=== PATIENT | female | born 1955 | race Caucasian/White ===

== ENCOUNTER 2016-06-17 19:22 | Emergency (ER) | payer OTHER ==
[~2016-06-17] VITALS: Ht 157.5 cm; Wt 77.1 kg
[~2016-06-17 19:22] MED LIST: BUPR75TA3 PO; DIAZ2TAB; DIPH-440; HYDR-3326; HYDR12.5 PO
--- NOTE | 2016-06-17 19:52 | NUR ---
CARIDAD JOSEPH AT BEDSIDE FOR EVAL.
[2016-06-17] MEDS ORDERED: NIFEdipine (10MG) 10 MG CAPSULE ONE (20:17)
[2016-06-17] MEDS ORDERED: LORAZEPAM 1 MG TABLET ONE (20:17)
[2016-06-17] MEDS ORDERED: HYDROCHLOROTHIAZIDE 25 MG TABLET ONE (20:17)
[2016-06-17 20:24] VITALS: BP 152/105
[2016-06-17] MEDS ORDERED: HYDROCHLOROTHIAZIDE 25 MG TABLET PO ONE (20:30)
[2016-06-17] MEDS ORDERED: NIFEdipine (10MG) 10 MG CAPSULE PO ONE (20:30)
[2016-06-17] MEDS ORDERED: LORAZEPAM 1 MG TABLET PO ONE (20:30)
== END 2016-06-17 20:37 | disposition home or self-care (01) ==
LOC: EDUNIT# 19:22 → ER 19:24
DX: Z76.0 Encounter for issue of repeat prescription (principal); I10 Essential (primary) hypertension; G89.29 Other chronic pain; M54.9 Dorsalgia, unspecified; F32.9 Major depressive disorder, single episode, unspecified; F31.9 Bipolar disorder, unspecified; F17.200 Nicotine dependence, unspecified, uncomplicated; Z88.8 Allergy status to other drugs, medicaments and biological substances
CPT/HCPCS: A4606; Z7610

== ENCOUNTER 2016-09-17 09:43 | Emergency (ER) | payer MEDICAID, OTHER ==
[~2016-09-17] VITALS: Ht 157.5 cm; Wt 77.6 kg
--- NOTE | 2016-09-17 09:46 | NUR ---
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 AWAITING MD ORDER
[2016-09-17] MEDS ORDERED: ACETAMINOPHEN 325 MG TABLET ONE (10:15)
[2016-09-17] MEDS ORDERED: HYDROCHLOROTHIAZIDE 25 MG TABLET ONE (10:15)
[2016-09-17] MEDS ORDERED: NIFEdipine (10MG) 10 MG CAPSULE ONE (10:15)
[2016-09-17] MEDS ORDERED: TETRACAINE HCL/PF 0.5% UD 2 ML BOTTLE ONE (10:23)
--- NOTE | 2016-09-17 10:27 | NUR ---
TETRACAINE ADMINISTERED TO R EYE PER VERBAL ORDER OF DR PARDO, PER PT REQUEST.
[2016-09-17] MEDS ORDERED: ACETAMINOPHEN 325 MG TABLET PO ONE (10:30)
[2016-09-17] MEDS ORDERED: HYDROCHLOROTHIAZIDE 25 MG TABLET PO ONE (10:30)
[2016-09-17] MEDS ORDERED: NIFEdipine (10MG) 10 MG CAPSULE PO ONE (10:30)
--- NOTE | 2016-09-17 10:31 | NUR ---
Patient discharged to home in stable condition. Written and verbal after care instructions given. Patient verbalizes understanding of instruction.
[2016-09-17 10:33] VITALS: BP 164/101
[2016-09-17] MEDS ORDERED: TETRAcaine 5 ML BOTTLE EACHEYE ONE (11:00)
== END 2016-09-17 10:34 | disposition home or self-care (01) ==
LOC: ER 09:45
DX: S05.91XA Unspecified injury of right eye and orbit, initial encounter (principal); H54.8 Legal blindness, as defined in USA; I10 Essential (primary) hypertension; M54.9 Dorsalgia, unspecified; G89.29 Other chronic pain; F31.9 Bipolar disorder, unspecified; F17.200 Nicotine dependence, unspecified, uncomplicated; Z88.8 Allergy status to other drugs, medicaments and biological substances; W26.8XXA Contact with other sharp object(s), not elsewhere classified, initial encounter; Y93.89 Activity, other specified; Y92.89 Other specified places as the place of occurrence of the external cause; Y99.9 Unspecified external cause status
CPT/HCPCS: 99284; A4606; Z7610

== ENCOUNTER 2016-12-26 16:53 | Emergency (ER) | payer MEDICAID, OTHER ==
[~2016-12-26] VITALS: Ht 165.1 cm; Wt 74.8 kg
--- NOTE | 2016-12-26 17:15 | NUR ---
BIB RA FROM STREET C/O FEVER AND WEAKNESS, NAD NOTED, VSS, RESP EVEN AND UNLABORED. WAITING FOR MD MORELOS.
[2016-12-26] MEDS ORDERED: CEFTRIAXONE 1 G VIAL IM ONE (17:30)
[2016-12-26] MEDS ORDERED: LIDOCAINE /MPF 1% VIAL 5 ML VIAL ONE (17:39)
[2016-12-26] MEDS ORDERED: CEFTRIAXONE 1 G VIAL ONE (17:39)
[2016-12-26] MEDS ORDERED: IV NS 0.9% 1,000 ML BAG IV ONE ×2 (18:00→19:00)
[2016-12-26] MEDS ORDERED: ACETAMINOPHEN ES 500 MG TABLET PO ONE (18:00)
[2016-12-26] MEDS ORDERED: ACETAMINOPHEN ES 500 MG TABLET ONE (18:05)
--- NOTE | 2016-12-26 18:05 | NUR ---
RE COLLECTED URINE AND SENT TO LAB
[2016-12-26 18:15] LABS: BASOPHILS % (AUTO) 0.2 % (0.0-2.0); EOSINOPHILS # (AUTO) 0.1 /CMM (0.0-0.7); HEMATOCRIT 42 % (33-45); HEMOGLOBIN 14.4 g/dL (11.5-14.8); LYMPHOCYTES # (AUTO) 0.9 /CMM (0.8-4.8); LYMPHOCYTES % (AUTO) 10.5 % (20.0-44.0); MEAN CORPUSCULAR HEMOGLOBIN 33 PG (26.0-33.0); MEAN CORPUSCULAR HGB CONC 34 g/dl (31.0-36.0); MEAN CORPUSCULAR VOLUME 97 fL (82-100); MONOCYTES # (AUTO) 0.4 /CMM (0.1-1.30); MONOCYTES % (AUTO) 4.7 % (2.0-12.0); NEUTROPHILS # (AUTO) 7.1 /CMM (1.8-8.9); NEUTROPHILS % (AUTO) 83.6 % (43.0-81.0); PLATELET COUNT (AUTO) 175 /CMM (150-450); RDW COEFFICIENT OF VARIATION 11.6 (11.5-15.0); RED BLOOD CELL COUNT(AUTO) 4.34 MIL/uL (4.0-5.2); WHITE BLOOD COUNT (AUTO) 8.5 K/uL (4.3-11.0)
[2016-12-26 18:31] LABS: INR 0.99 (0.87-1.13); PROTHROMBIN TIME 10.3 SECS (9.5-12.7)
[2016-12-26 18:33] LABS: ALANINE AMINOTRANSFERASE 185 U/L (12-78); ALBUMIN 3.8 g/dL (3.4-5.0); ALKALINE PHOSPHATASE 54 U/L (46-116); ASPARTATE AMINOTRANSFERASE 211 U/L (15-37); BILIRUBIN,DIRECT 0.5 mg/dL (0.0-0.2); BILIRUBIN,TOTAL 0.9 mg/dL (0.2-1.0); CALCIUM, SERUM 9.3 mg/dL (8.5-10.1); CARBON DIOXIDE 25 mmol/L (21-32); CHLORIDE 98 mmol/L (98-107); CREATININE 0.7 mg/dL (0.6-1.3); GLUCOSE 108 mg/dL (74-106); SODIUM SERUM 138 mmol/L (136-145); TOTAL PROTEIN, SERUM 8.2 g/dL (6.4-8.2); UREA NITROGEN, BLOOD 8 mg/dL (7-18)
[2016-12-26 18:35] LABS: TROPONIN I < 0.017 ng/mL (0.00-0.056)
[2016-12-26] MEDS ORDERED: POTASSIUM CHLORIDE 20 MEQ TAB.PRT.SR PO ONE ×2 (19:00→19:12)
[2016-12-26] MEDS ORDERED: PIPERACILLIN /TAZOBACTAM 3.375 G in IV D5W 50 ML IV ONE (19:00)
[2016-12-26] MEDS ORDERED: NIFE30TA89 PO (19:07)
[2016-12-26] MEDS ORDERED: HYDR25TA4 PO (19:07)
[2016-12-26 19:08] LABS: APPEARANCE,URINE Clear (CLEAR); BILIRUBIN,URINE Negative (NEGATIVE); BLOOD, URINE Small Ery/uL (NEGATIVE); COLOR,URINE Yellow (YELLOW); KETONES,URINE Negative (NEGATIVE); LEUKOCYTE ESTERASE ,URINE Moderate (NEGATIVE); NITRITE, URINE Negative (NEGATIVE); PROTEIN,URINE 30 mg/dl (NEGATIVE); UGLUCOSE Negative (NEGATIVE); UROBILINOGEN,URINE 0.2 EU/dL (0.2)
[2016-12-26] MEDS ORDERED: PIPERACILLIN /TAZOBACTAM 3.375 G VIAL IV ONE (19:13)
[2016-12-26 19:23] LABS: BACTERIA,URINE Moderate /HPF (None Seen); RBC,URINE 0-2 /HPF (0-2); SQUAMOUS EPITHELIAL CELL,UR Many /HPF (None Seen); WBC,URINE 21-50 /HPF (0-3)
--- NOTE | 2016-12-26 19:44 | NUR ---
SPOKE WITH MILENA WITH [employer] AND SHE IS WORKING ON ARRANGING PATIENT TRANSFER.
[2016-12-26] MEDS ORDERED: HYDROCODONE/APAP 5/325MG 1 EACH TABLET ONE (20:25)
[2016-12-26] MEDS ORDERED: HYDROCODONE/APAP 5/325MG 1 EACH TABLET PO ONE (20:30)
--- NOTE | 2016-12-26 20:38 | NUR ---
FAX FACE, LABS, AND CLINICAL INFO TO [facility] AT [facility] FAX: ATTN [facility]
--- NOTE | 2016-12-26 22:02 | NUR ---
SPOKEWITH ZIGGY PATTERN VAULT CLERK FOR [facility]. CONFIRMED THAT DR. JARA SPOKE WITH DR. MIR AT 21:00. INFORMED ZIGGY RECEIVED FAX RECEIPT CONFIRMATION AT 21:15 THAT HE RECEIVED THE REQUIRED CLINICAL INFORMATION TO OBTAIN A BED. WAS INFORMED BY ZIGGY THAT HE ONLY GAVE THE CLINICAL DATA TO THE TARIFF CLERK 10 MINUTES AGO.
--- NOTE | 2016-12-26 22:52 | NUR ---
Patient is resting comfortably in bed with eyes closed. Easily aroused. VSS
--- NOTE | 2016-12-26 23:09 | NUR ---
PT ACCEPTED AT [facility] RM 2260. NUMBER FOR REPORT [id number]. TRANSPORT WILL BE [facility] AUTH#[id number].
--- NOTE | 2016-12-26 23:18 | NUR ---
CALLED PABLO MUÑOZ [facility]) TO SET UP BLS TRANSPORT TO [facility]. ETA 2AM-2:30AM. TRIP#[phone]
[2016-12-26 23:32] VITALS: BP 145/78
--- NOTE | 2016-12-26 23:32 | NUR ---
report given to bri anderson
== END 2016-12-27 00:20 | disposition short-term general hospital (02) ==
LOC: ER 16:55
DX: N39.0 Urinary tract infection, site not specified (principal); L03.114 Cellulitis of left upper limb; E87.6 Hypokalemia; R94.5 Abnormal results of liver function studies; R65.10 Systemic inflammatory response syndrome (SIRS) of non-infectious origin without acute organ dysfunction; I10 Essential (primary) hypertension; G89.29 Other chronic pain; F32.9 Major depressive disorder, single episode, unspecified; Z88.6 Allergy status to analgesic agent; Z88.8 Allergy status to other drugs, medicaments and biological substances; F17.200 Nicotine dependence, unspecified, uncomplicated
CPT/HCPCS: 36415; 71010; 80048; 80076; 81001; 83605 ×2; 83690; 84484; 85025; 85730; 87040 ×2; 87077; 87081; 87086; 87186; 93005; 96361; 96365; 96372; 99285; A4606; J0696; J2543 ×2; J3490; J7030 ×2; J7040; J7060; Z7610; 81000-TC

== ENCOUNTER 2017-03-22 02:12 | Emergency (ER) | payer MEDICAID, OTHER ==
[~2017-03-22] VITALS: Ht 154.9 cm; Wt 70.3 kg
[~2017-03-22 02:12] MED LIST changes: -BUPR75TA3 PO; -DIAZ2TAB; -DIPH-440; -HYDR-3326; -HYDR12.5 PO; +HYDR25TA4 PO; +NIFE30TA89 PO
--- NOTE | 2017-03-22 02:35 | NUR ---
PT ASSIGNED ROOM; LEFT ROOM AND WENT TO LOBBY SCREAMING
--- NOTE | 2017-03-22 02:45 | NUR ---
CALLED FROM LOBBY. STATES "WAIT"
--- NOTE | 2017-03-22 03:00 | NUR ---
CALLED AGAIN FOR ROOM ASSIGNMENT; STATES "AM GOING TO SMOKE"
--- NOTE | 2017-03-22 05:00 | NUR ---
PT IS IN BED #9 C/O HEADACHE. PT IS ALSO REQUESTING A REFILL ON HER BP MEDICATION. PT WAS SEEN BY DR. MIR. PT IS ON THE MONITOR AND CONTINUOUS PULSE OX.
[2017-03-22] MEDS ORDERED: ACETAMINOPHEN 325 MG TABLET ONE (05:07)
[2017-03-22] MEDS: ACETAMINOPHEN 325 MG TABLET PO ONE (05:10)
--- NOTE | 2017-03-22 05:15 | NUR ---
CALLING RADIOLOGY RE: CXR.
[2017-03-22] MEDS ORDERED: HYDROCHLOROTHIAZIDE 25 MG TABLET ONE (05:32)
[2017-03-22] MEDS: HYDROCHLOROTHIAZIDE 25 MG TABLET PO ONE (05:38)
--- NOTE | 2017-03-22 05:42 | NUR ---
PT REC'D MEDCATION ORDERED. Patient discharged to home in stable condition. Written and verbal after care instructions given. Patient verbalizes understanding of instruction AND RX. PT AMBULATED OUT WITH A STEADY GAIT. VSS.
[2017-03-22 05:43] VITALS: BP 155/102
== END 2017-03-22 05:43 | disposition home or self-care (01) ==
LOC: ER 02:16
DX: Z76.0 Encounter for issue of repeat prescription (principal); I10 Essential (primary) hypertension; R05 Cough; G89.29 Other chronic pain; F32.9 Major depressive disorder, single episode, unspecified; F17.200 Nicotine dependence, unspecified, uncomplicated; Z88.6 Allergy status to analgesic agent; Z88.8 Allergy status to other drugs, medicaments and biological substances
CPT/HCPCS: 71045; 99283; A4606; Z7610

== ENCOUNTER 2018-03-17 17:36 | Emergency (ER) | payer OTHER ==
[~2018-03-17] VITALS: Ht 154.9 cm; Wt 72.1 kg
--- NOTE | 2018-03-17 17:45 | NUR ---
BIBRA 878 C/O LOWER ABDOMINAL PAIN X 3-4 MONTHS, +NAUSEA -VOMITING. PAIN IS SHARP AND INTERMITTENT. PT IS HOMELESS, AOX4, AMBULATORY, VSS, RR EVEN AND UNLABORED. DENIES SOB, DIZZINESS, WEAKNESS. STATES SHE HAS BLOOD IN HER STOOL. SKIN WARM, DRY, INTACT. SEEN BY DR HERNANDEZ.
[2018-03-17 18:24] LABS: BASOPHILS % (AUTO) 0.3 % (0.0-2.0); EOSINOPHILS % (AUTO) 0.2 % (0.0-6.0); HEMATOCRIT 43 % (33-45); HEMOGLOBIN 14.3 g/dL (11.5-14.8); LYMPHOCYTES # (AUTO) 1.2 /CMM (0.8-4.8); LYMPHOCYTES % (AUTO) 18.9 % (20.0-44.0); MEAN CORPUSCULAR HGB CONC 34 g/dl (31.0-36.0); MEAN CORPUSCULAR VOLUME 95 fL (82-100); MONOCYTES # (AUTO) 0.4 /CMM (0.1-1.30); MONOCYTES % (AUTO) 5.4 % (2.0-12.0); NEUTROPHILS % (AUTO) 75.2 % (43.0-81.0); PLATELET COUNT (AUTO) 174 /CMM (150-450); WHITE BLOOD COUNT (AUTO) 6.6 K/uL (4.3-11.0)
[2018-03-17] MEDS ORDERED: IV NS 0.9% 1,000 ML BAG IV ONE ×2 (18:30→19:30)
[2018-03-17 18:35] LABS: APPEARANCE,URINE Slightly Cloudy (CLEAR); BILIRUBIN,URINE LARGE (NEGATIVE); BLOOD, URINE Moderate Ery/uL (NEGATIVE); COLOR,URINE Amber (YELLOW); KETONES,URINE 15 (NEGATIVE); LEUKOCYTE ESTERASE ,URINE Negative (NEGATIVE); NITRITE, URINE Positive (NEGATIVE); PH,URINE 5.5 (5.0-8.0); PROTEIN,URINE >=300 mg/dl (NEGATIVE); UGLUCOSE Negative (NEGATIVE)
[2018-03-17 18:35] LABS: CALCIUM, SERUM 8.9 mg/dL (8.5-10.1); CREATININE 1.1 mg/dL (0.6-1.3); POTASSIUM 4.1 mmol/L (3.5-5.1)
[2018-03-17 18:41] LABS: ALBUMIN 4.1 g/dL (3.4-5.0); BILIRUBIN,DIRECT 1.4 mg/dL (0.0-0.2); BILIRUBIN,TOTAL 3.2 mg/dL (0.2-1.0); TOTAL PROTEIN, SERUM 8.4 g/dL (6.4-8.2)
--- NOTE | 2018-03-17 18:54 | NUR ---
PT TAKEN TO CT VIA RMANOJ.
[2018-03-17] MEDS ORDERED: CT SWABBABLE VALVE TRANS SET 1 EA INFUS.SET MC ONE (18:55)
[2018-03-17] MEDS ORDERED: IOHEXOL-300 100 ML VIAL IV ONE (18:55)
[2018-03-17] MEDS ORDERED: IV NS 0.9% 250 ML IV ONE (18:56)
[2018-03-17 18:59] LABS: BACTERIA,URINE 2+ /HPF (None Seen)
[2018-03-17 19:02] LABS: RBC,URINE 21-50 /HPF (0-2)
[2018-03-17] MEDS ORDERED: PIPERACILLIN /TAZOBACTAM 3.375 G VIAL IV ONE (19:24)
--- NOTE | 2018-03-17 19:27 | NUR ---
PT CONTINUES TO COMPLAIN OF PAIN. NOTIFIED.
[2018-03-17] MEDS ORDERED: PIPERACILLIN /TAZOBACTAM 3.375 G in IV D5W 50 ML IV ONE (19:30)
[2018-03-17] MEDS ORDERED: HYDROMORPHONE INJ 2 MG/ML DISP.SYRIN ONE (19:42)
[2018-03-17] MEDS ORDERED: HYDROMORPHONE 1 MG/1 ML DISP.SYRIN IV ONE (20:00)
--- NOTE | 2018-03-17 21:11 | NUR ---
Patient is resting comfortably in bed with eyes closed. Easily aroused. VSS
--- NOTE | 2018-03-17 21:40 | NUR ---
CALLED [facility] FOR LACTIC RE-DRAW. STATED IT WAS TIMED AND THEY WILL COME WHEN SYSTEM NOTIFIES THEM.
--- NOTE | 2018-03-17 21:56 | NUR ---
LACTIC ACID DRAWN AND SENT TO LAB
--- NOTE | 2018-03-17 23:47 | NUR ---
Patient is resting comfortably in bed with eyes closed. Easily aroused. VSS
--- NOTE | 2018-03-17 23:58 | NUR ---
REPORT REC'D FROM ANASTACIO NEVAREZ FOR COURT[facility].
[2018-03-18] MEDS ORDERED: HYDROMORPHONE INJ 2 MG/ML DISP.SYRIN ONE (00:15)
[2018-03-18] MEDS ORDERED: HYDROMORPHONE INJ 0.5 MG/0.5 ML SYRINGE IV ONE (00:30)
--- NOTE | 2018-03-18 00:49 | NUR ---
PT AMBULATED TO THE BATHROOM WITH A STEADY GAIT. PT RETURNED TO ER BED 13 AND WAS CONNECTED TO THE MONITOR AND CONTINUOUS PULSE OX.
--- NOTE | 2018-03-18 00:49 | NUR ---
PT WAS PLACED ON 2L O2 VIA NC.
[2018-03-18] MEDS ORDERED: PIPERACILLIN /TAZOBACTAM 3.375 G VIAL IV ONE (00:56)
--- NOTE | 2018-03-18 01:11 | NUR ---
PT APPEARS TO BE RESTING COMFORTABLY WITH NO S/S OF PAIN OR DISTRESS.
[2018-03-18] MEDS ORDERED: PIPERACILLIN /TAZOBACTAM 3.375 G in IV D5W 50 ML IV ONE (01:30)
--- NOTE | 2018-03-18 01:30 | NUR ---
PT REC'D ANTIBIOTIC ORDERED. PT ALSO REC'D A FEW ICE CHIPS PER DR. GERBER. PT IS TOLERATING ICE CHIPS WELL.
--- NOTE | 2018-03-18 02:38 | NUR ---
CALL BACK FROM ANGIE REDEVELOPMENT SPECIALIST FOR [facility] WITH TRANSFER INFO. MS ROOM NUMBER [id number]; REPORT NUMBER [id number]; AUTH # [id number]; ETA 40MINUTES; REF NUMBER [id number]
--- NOTE | 2018-03-18 03:00 | NUR ---
CALLED [facility] TO GIVE REPORT. NUMBER IS NOT AN ACTIVE NUMBER.
--- NOTE | 2018-03-18 03:15 | NUR ---
REPORT GIVEN TO ANASTACIO ZIMMERMAN AT [facility].
[2018-03-18] MEDS ORDERED: hydrALAZINE HCL IV 20 MG VIAL ONE (03:38)
--- NOTE | 2018-03-18 03:39 | NUR ---
DR GERBER NOTIFIED RE: PT'S ELEVATED BP. NEW ORDERS GIVEN AND CARRIED OUT.
[2018-03-18 03:40] VITALS: BP 173/123
--- NOTE | 2018-03-18 03:40 | NUR ---
REPORT GIVEN TO TERE EMT.
[2018-03-18] MEDS ORDERED: hydrALAZINE HCL IV 20 MG VIAL IV ONE (04:00)
--- NOTE | 2018-03-18 04:02 | NUR ---
BP IS NOW 159/109. PT IS NOW BEING TRANSPORTED TO [facility]
== END 2018-03-18 04:06 ==
LOC: ER 17:37
DX: A41.9 Sepsis, unspecified organism (principal); R65.20 Severe sepsis without septic shock; N39.0 Urinary tract infection, site not specified; K81.9 Cholecystitis, unspecified; R74.0 Nonspecific elevation of levels of transaminase and lactic acid dehydrogenase [LDH]; E86.0 Dehydration; I10 Essential (primary) hypertension; G89.29 Other chronic pain; M54.9 Dorsalgia, unspecified; F31.9 Bipolar disorder, unspecified; H54.8 Legal blindness, as defined in USA; F10.10 Alcohol abuse, uncomplicated; F17.200 Nicotine dependence, unspecified, uncomplicated; Y90.9 Presence of alcohol in blood, level not specified; Z98.890 Other specified postprocedural states; Z88.6 Allergy status to analgesic agent; Z88.8 Allergy status to other drugs, medicaments and biological substances
CPT/HCPCS: 36415; 71045; 74177; 76705; 80048; 80076; 81001; 83605 ×2; 83690; 85025; 85730; 87040 ×2; 87086; 96361; 96365; 96366; 96375; 96376; 99291; A4606; J0360; J1170 ×2; J2543 ×2; J7030 ×2; J7050 ×2; Q9967; Z7610; 81000-TC; J7060

== ENCOUNTER 2018-09-08 06:27 | Emergency (ER) | payer OTHER ==
[~2018-09-08] VITALS: Ht 154.9 cm; Wt 69.9 kg
--- NOTE | 2018-09-08 06:30 | NUR ---
PT IN BED, C/O OF PAIN 8-12/21. PT A&OX3-4. WILL CONT TO MONITOR.
--- NOTE | 2018-09-08 06:40 | NUR ---
IV 20G IN R WRIST S/L. BLOOD DRAWN AND GIVEN TO WOOD ROUTER HAND.
--- NOTE | 2018-09-08 06:45 | NUR ---
PT ASSISTED TO PUT ON HOSPITAL GOWN.
--- NOTE | 2018-09-08 06:50 | NUR ---
URINE SAMPLE COLLECTED AND PLACED AT SAT LAB.
[2018-09-08 06:51] LABS: BASOPHILS % (AUTO) 0.3 % (0.0-2.0); EOSINOPHILS % (AUTO) 2.1 % (0.0-6.0); HEMATOCRIT 39 % (33-45); HEMOGLOBIN 13.1 g/dL (11.5-14.8); LYMPHOCYTES # (AUTO) 1.7 /CMM (0.8-4.8); LYMPHOCYTES % (AUTO) 36.5 % (20.0-44.0); MEAN CORPUSCULAR HGB CONC 34 g/dl (31.0-36.0); MEAN CORPUSCULAR VOLUME 91 fL (82-100); MONOCYTES # (AUTO) 0.3 /CMM (0.1-1.30); MONOCYTES % (AUTO) 7.3 % (2.0-12.0); NEUTROPHILS # (AUTO) 2.5 /CMM (1.8-8.9); NEUTROPHILS % (AUTO) 53.8 % (43.0-81.0); PLATELET COUNT (AUTO) 153 /CMM (150-450); RED BLOOD CELL COUNT(AUTO) 4.24 MIL/uL (4.0-5.2); WHITE BLOOD COUNT (AUTO) 4.6 K/uL (4.3-11.0)
[2018-09-08] MEDS ORDERED: ONDANSETRON HCL/PF - ER 4 MG/2 ML VIAL IV ONE (07:00)
[2018-09-08] MEDS ORDERED: MORPHINE SULFATE INJ 2 MG/ML DISP.SYRIN IV ONE (07:00)
[2018-09-08] MEDS ORDERED: MORPHINE SULFATE INJ 4 MG/ML DISP.SYRIN ONE (07:07)
--- NOTE | 2018-09-08 07:08 | NUR ---
4MG MORPHINE GIVEN ORDERED FOR PAIN 12/21.
[2018-09-08 07:10] LABS: ALBUMIN 3.7 g/dL (3.4-5.0); BILIRUBIN,DIRECT 0.6 mg/dL (0.0-0.2); BILIRUBIN,TOTAL 1.2 mg/dL (0.2-1.0); CALCIUM, SERUM 8.8 mg/dL (8.5-10.1); POTASSIUM 3.7 mmol/L (3.5-5.1)
[2018-09-08 07:21] LABS: BILIRUBIN,URINE Negative (NEGATIVE); BLOOD, URINE Negative Ery/uL (NEGATIVE); COLOR,URINE Yellow (YELLOW); KETONES,URINE Negative (NEGATIVE); LEUKOCYTE ESTERASE ,URINE Small (NEGATIVE); NITRITE, URINE Negative (NEGATIVE); PROTEIN,URINE 100 mg/dl (NEGATIVE); UGLUCOSE Negative (NEGATIVE); UROBILINOGEN,URINE 0.2 EU/dL (0.2)
[2018-09-08 07:22] LABS: APPEARANCE,URINE Slightly Hazy (CLEAR)
[2018-09-08 07:30] LABS: BACTERIA,URINE Rare /HPF (None Seen); RBC,URINE 0-3 /HPF (0-2); SQUAMOUS EPITHELIAL CELL,UR Moderate /HPF (None Seen)
--- NOTE | 2018-09-08 07:32 | NUR ---
B/P OF 174/118 AND 158/[address] MANN
--- NOTE | 2018-09-08 07:34 | NUR ---
REPORT GIVEN TO PALMIRA CHAVES FOR COURTNEY.
--- NOTE | 2018-09-08 07:35 | NUR ---
REPORT RECEIVED FROM WOODROW CHAVES FOR COURTNEY
[2018-09-08] MEDS ORDERED: ONDANSETRON HCL/PF 4 MG/2 ML VIAL ONE (07:37)
[2018-09-08] MEDS ORDERED: CT SWABBABLE VALVE TRANS SET 1 EA INFUS.SET MC ONE (08:17)
[2018-09-08] MEDS ORDERED: IOHEXOL-300 100 ML VIAL IV ONE (08:17)
[2018-09-08] MEDS ORDERED: IV NS 0.9% 250 ML IV ONE (08:18)
--- NOTE | 2018-09-08 08:38 | NUR ---
WHEELED OUT VIA RNEY FOR CT SCAN
--- NOTE | 2018-09-08 11:05 | NUR ---
PROVIDED W MEAL TRAY, PT TOLERATING PO WELL
--- NOTE | 2018-09-08 11:43 | NUR ---
FIRE EXTINGUISHER INSTALLER KEYSHA FRAGOSO AT BEDSIDE
--- NOTE | 2018-09-08 11:45 | NUR ---
BP OF 162/111, MADE AWARE, PROVIDED PT WITH PRESCRITION FOR BP
--- NOTE | 2018-09-08 11:49 | NUR ---
PT SIGNED HOMELESS DISCHARGE WAIVER
--- NOTE | 2018-09-08 12:04 | NUR ---
IV removed. Catheter intact and site benign. Pressure and 4x4 applied to site. No bleeding noted.
--- NOTE | 2018-09-08 12:06 | NUR ---
Patient given written and verbal discharge instructions. Patient verbalizes understanding of instructions. Patient is ambulatory with steady gait. Ref[place] offer of [place] [facility] [place]. Patient given list of available shelters in surrounding area. Per patient, she is awaiting for an available female bed from [facility] in [place], Pt spoke to family caseworker Idris. Nameband removed, pt in appropriate clothes. All belongings given to patient. Tap card provided.
[2018-09-08 12:11] VITALS: BP 162/111
--- NOTE | 2018-09-08 12:12 | NUR ---
Social service consult requested by ER charge nurse Bashir for homelessness. Pt is a 63 years old female who was admitted to [facility] for abdominal pain. SW met with pt. bedside. Pts belongings were at bedside. Pt. is alert and oriented x4. Pt was cooperative with SW during the entire assessment. Pt. is ambulatory. Pt. states she has been homeless on and off for 16 years. SW inquired with pt. if she has worked with any caseworkers in the community. Pt. stated, Yes I am working with my case hardener at [employer]. I am in the Housing for Health program. I am next in line for a bed and will be staying there with my boyfriend for a while until we get a place of our own. Pt. states she is staying where Michelle Simeon and the [facility] [employer] meet. Pt. receives $980 a month from social security benefits. Pt. denies drug use but states that she drinks about half a pint of liquor several days a week. Pt. also smokes about half a pack of cigarettes a day. Pt. states that she received mental health and substance use support from [facility] from [phone] but is no longer wanting to attend. SW offered substance use program referrals and emergency nursing home referrals but pt. declined. SW encouraged pt to go to a treatment program and left the following referrals with pt. in case her motivation changes in the future: [facility] [address] [place], [place] [id number] [phone]. [facility] [address] [place] [phone] , and [facility] [address] [facility] [facility] [address] . Pt. denies suicidal and homicidal ideation at this time. Pt. will sign homeless waiver at discharge and placed in chart. Pt. will require a TAP card upon discharge as well. No other services needed at this time. SW is available if needed.
--- NOTE | 2018-09-08 13:00 | NUR ---
ASSISTED PT TO [facility] TO CLAIM PRESCRIPTION.
== END 2018-09-08 13:04 | disposition home or self-care (01) ==
LOC: ER 06:28
DX: N39.0 Urinary tract infection, site not specified (principal); K74.60 Unspecified cirrhosis of liver; R18.8 Other ascites; K57.30 Diverticulosis of large intestine without perforation or abscess without bleeding; I10 Essential (primary) hypertension; F32.9 Major depressive disorder, single episode, unspecified; F17.200 Nicotine dependence, unspecified, uncomplicated; Z98.890 Other specified postprocedural states; Z88.8 Allergy status to other drugs, medicaments and biological substances; Z88.6 Allergy status to analgesic agent; Z79.899 Other long term (current) drug therapy
CPT/HCPCS: 36415; 74177; 80048; 80076; 81001; 83690; 85025; 87086; 93005; 96374; 96375; 99284; J2270; J2405; J7050; Q9967; 81000-TC

== ENCOUNTER 2018-09-27 17:31 | Inpatient (IN) | payer OTHER ==
[~2018-09-27] VITALS: Ht 154.9 cm; Wt 66.2 kg
--- NOTE | 2018-09-27 17:48 | NUR ---
ACUTE DYSPNEA; CALLED 911 NO ACUTE DISTRESSL LUNGS ARE CLEAR
--- NOTE | 2018-09-27 18:14 | NUR ---
ASSUME PT CARE. RESTING IN BED. PER REPORT, PT CALLED 911 C/O SOB, GENERALIZED WEAKNESS X 1 WEEK. PT ALSO C/O R KNEE PAIN S/P GLF COUPLE DAYS AGO. 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 STABLE VITALS AWAITING MD MORELOS.
--- NOTE | 2018-09-27 18:16 | NUR ---
DR GERBER AT BEDSIDE FOR EVAL.
[2018-09-27 18:31] LABS: BASOPHILS % (AUTO) 0.3 % (0.0-2.0); EOSINOPHILS % (AUTO) 1.7 % (0.0-6.0); HEMATOCRIT 41 % (33-45); HEMOGLOBIN 13.5 g/dL (11.5-14.8); LYMPHOCYTES # (AUTO) 1.1 /CMM (0.8-4.8); LYMPHOCYTES % (AUTO) 25.2 % (20.0-44.0); MEAN CORPUSCULAR HGB CONC 33 g/dl (31.0-36.0); MEAN CORPUSCULAR VOLUME 91 fL (82-100); MONOCYTES # (AUTO) 0.3 /CMM (0.1-1.30); MONOCYTES % (AUTO) 6.9 % (2.0-12.0); NEUTROPHILS % (AUTO) 65.9 % (43.0-81.0); PLATELET COUNT (AUTO) 148 /CMM (150-450); RED BLOOD CELL COUNT(AUTO) 4.54 MIL/uL (4.0-5.2); WHITE BLOOD COUNT (AUTO) 4.5 K/uL (4.3-11.0)
[2018-09-27 18:39] LABS: CALCIUM, SERUM 8.7 mg/dL (8.5-10.1); CREATININE 0.9 mg/dL (0.6-1.3); POTASSIUM 3.9 mmol/L (3.5-5.1)
[2018-09-27 18:52] LABS: ALBUMIN 3.7 g/dL (3.4-5.0); BILIRUBIN,DIRECT 0.5 mg/dL (0.0-0.2); BILIRUBIN,TOTAL 1.1 mg/dL (0.2-1.0); TOTAL PROTEIN, SERUM 8.1 g/dL (6.4-8.2)
[2018-09-27 19:01] LABS: APPEARANCE,URINE Clear (CLEAR); BILIRUBIN,URINE SMALL (NEGATIVE); BLOOD, URINE Negative Ery/uL (NEGATIVE); COLOR,URINE Yellow (YELLOW); KETONES,URINE Negative (NEGATIVE); LEUKOCYTE ESTERASE ,URINE Negative (NEGATIVE); NITRITE, URINE Negative (NEGATIVE); PH,URINE 6.5 (5.0-8.0); PROTEIN,URINE 100 mg/dl (NEGATIVE); UGLUCOSE Negative (NEGATIVE)
[2018-09-27 19:15] LABS: BACTERIA,URINE Moderate /HPF (None Seen); MUCUS,URINE Few /LPF (None Seen); RBC,URINE 0-2 /HPF (0-2); SQUAMOUS EPITHELIAL CELL,UR Many /HPF (None Seen); URINE AMORPHOUS URATE Few /HPF (None Seen)
--- NOTE | 2018-09-27 19:30 | NUR ---
PT RECEIVED IN BED AAOX4. NAD NOTED.
[2018-09-27] MEDS ORDERED: FUROSEMIDE 40 MG/4 ML VIAL ONE (20:15)
[2018-09-27] MEDS ORDERED: FUROSEMIDE 40 MG/4 ML VIAL IV ONE (20:30)
--- NOTE | 2018-09-27 20:52 | NUR ---
CALLED NURSING SUP REQUESTED TELE BED
[2018-09-27] MEDS ORDERED: HYDROCODONE/APAP 5/325MG 1 EACH TABLET PO ONE (21:00)
[2018-09-27] MEDS ORDERED: HYDROCODONE/APAP 5/325MG 1 EACH TABLET ONE (21:07)
--- NOTE | 2018-09-27 21:09 | NUR ---
BED ASSIGNMENT: 306-2 TELE
--- NOTE | 2018-09-27 21:19 | NUR ---
CALLED TO UNIT FOR REPORT, NO ANSWER
[2018-09-27] MEDS ORDERED: CLONIDINE HCL 0.1 MG TABLET PO PRN (21:30)
[2018-09-27] MEDS ORDERED: ONDANSETRON HCL/PF 4 MG/2 ML VIAL IVP PRN (21:30)
[2018-09-27] MEDS ORDERED: MAG HYDROX/AL HYDROX/SIMETH 30 ML UDC PO PRN (21:30)
[2018-09-27] MEDS ORDERED: ZOLPIDEM TARTRATE 5 MG TABLET PO PRN (21:30)
[2018-09-27] MEDS ORDERED: Z GUARD REMEDY 2 OZ OINT TP PRN (21:30)
[2018-09-27] MEDS ORDERED: ACETAMINOPHEN 325 MG TABLET PO PRN (21:30)
[2018-09-27] MEDS ORDERED: MAGNESIUM HYDROXIDE 30 ML UDC PO PRN (21:30)
--- NOTE | 2018-09-27 21:31 | NUR ---
REPORT GIVEN TO ANASTACIO DWYER FOR COURTNEY. PT GOING TO 306-2
--- NOTE | 2018-09-27 21:55 | NUR ---
pt transported to unit with rn and emt at bedside w acls protocol. nad noted during transport. pt ambulated from gurney to bed.
[2018-09-27 22:00] VITALS: BP 157/106
[2018-09-27] MEDS: NITROGLYCERIN PACKET 1 GM PACKET TOP SCH (22:30)
[2018-09-27] MEDS: ENOXAPARIN SODIUM 40 MG/0.4 ML DISP.SYRIN SQ SCH (22:30)
[2018-09-27] MEDS: METOPROLOL TARTRATE 25 MG TABLET PO SCH (22:30)
[2018-09-28] MEDS: HYDROCODONE/APAP 5/325MG 1 EACH TABLET PO PRN ×4 (02:10→21:54)
[2018-09-28 04:00] VITALS: BP 149/95
[2018-09-28] MEDS: NITROGLYCERIN PACKET 1 GM PACKET TOP SCH ×2 (05:00→05:07)
--- NOTE | 2018-09-28 05:36 | NUR ---
CLOSING NOTES: ASLEEP AT THIS TIME. AROUSES EASILY AND ALERT. MEDICATED X2 FOR PAIN AND EFFECTIVE. AMBULATES TO THE BATHROOM WITH NURSE STANDBY, STEADY ON HER LEGS. SPEECH CLEAR COOPERATIVE. O2 SATS 96 -100 % RA, BUT THE PATIENT REQUISTED 02 STATING "IT MADE HER FEEL BETTER" TO HAVE IT ON, NO SOB NOTHED THIS 10 HOURS. NO EDEMA SEEN AM WT 148 LBS BEDSCALE
[2018-09-28 05:42] VITALS: BP 149/95
[2018-09-28 06:21] LABS: BASOPHILS % (AUTO) 0.3 % (0.0-2.0); HEMATOCRIT 39 % (33-45); HEMOGLOBIN 12.8 g/dL (11.5-14.8); LYMPHOCYTES # (AUTO) 1.4 /CMM (0.8-4.8); LYMPHOCYTES % (AUTO) 34.6 % (20.0-44.0); MEAN CORPUSCULAR HGB CONC 33 g/dl (31.0-36.0); MEAN CORPUSCULAR VOLUME 90 fL (82-100); MONOCYTES # (AUTO) 0.3 /CMM (0.1-1.30); MONOCYTES % (AUTO) 7.2 % (2.0-12.0); NEUTROPHILS # (AUTO) 2.2 /CMM (1.8-8.9); NEUTROPHILS % (AUTO) 54.9 % (43.0-81.0); PLATELET COUNT (AUTO) 144 /CMM (150-450); RED BLOOD CELL COUNT(AUTO) 4.29 MIL/uL (4.0-5.2)
[2018-09-28 06:59] LABS: CALCIUM, SERUM 8.6 mg/dL (8.5-10.1); CREATININE 0.9 mg/dL (0.6-1.3); MAGNESIUM 1.5 mg/dL (1.8-2.4); PHOSPHORUS 4.1 mg/dL (2.5-4.9); POTASSIUM 3.6 mmol/L (3.5-5.1)
--- NOTE | 2018-09-28 07:20 | NUR ---
Tele/RN - Assessment Patient in bed awake, A/O X 4, states breathing improved, no apparent distress seen, stable on room air, tele shows SR with BBB. Saline lock on the LAC is patent, intact, flushing well. Labs reviewed, noted with magnesium level 1.5, will relay to Dr. Hall. Fall precautions maintained. Patient updated on plan of care and in agreement. Will continue with current medical management.
[2018-09-28 08:00] VITALS: BP 145/98
[2018-09-28] MEDS: METOPROLOL TARTRATE 25 MG TABLET PO SCH ×3 (08:05→17:03)
[2018-09-28] MEDS: NIFEdipine XL (30MG) 30 MG TAB PO SCH (08:05)
[2018-09-28] MEDS: Magnesium 1GM/D5W 100ML PREMIX 100 ML IV SCH ×2 (08:45→09:45)
[2018-09-28] MEDS ORDERED: HYDROCHLOROTHIAZIDE 25 MG TABLET PO SCH (09:00)
[2018-09-28] MEDS ORDERED: FUROSEMIDE 40 MG/4 ML VIAL IV SCH (09:00)
[2018-09-28] MEDS: VALSARTAN 80 MG TABLET PO SCH (09:24)
[2018-09-28] MEDS: NEUTRA PHOS 1 POWD.PACKET PO SCH ×2 (09:25→17:04)
--- NOTE | 2018-09-28 11:37 | NUR ---
Social service consult requested by Dr. Velasquez for homelessness. Pt. is a 63 year old female who was admitted to [facility] for abdominal pain. SW met with pt. bedside. Pt. is alert and oriented x 3. Pt. appears disheveled. Pt. has a prosthetic left eye. Pt. stated, " I just need a bus pass when I leave, I need to sleep." SW informed pt. she needs to ask her a few quick questions. Pt. was receptive. Pt. states she is homeless and lives under the [place]. Pt. stated, she is linked with [facility] and her line repairer is Idris. NAMAN offered pt. correction placement and resources, however pt. declined stating, " No, I don't need anything but a bus pass to go back to [place]." NAMAN updated case coordinator Sera regarding pt's discharge plan. Homeless Patient Waiver Form to be signed by the pt. upon discharge.
--- NOTE | 2018-09-28 15:47 | NUR ---
Patient reports she is homeless and lives under the [facility] overpass. States she is linked with [facility] and her contact lens blocker is Idris. She was seen by vp digital marketing social media and crm and was offered halfway and resources but refused. Patient states she does not want anything. She is requesting bus pass to go back to [facility] location. Addendum: 09/28/18 at 1548 by ALANIS PURI RN Amended: Links added.
[2018-09-28 16:00] VITALS: BP 113/57
--- NOTE | 2018-09-28 19:20 | NUR ---
MS/RN - End of shift summary Patient feeling better, denies SOB, not in any form of distress, stable on room air, on Lasix IV diuresing well. Magnesium and phos replaced. All needs attended. Endorsed to night RN for continuity of care.
--- NOTE | 2018-09-28 19:30 | NUR ---
MS/RN RECEIVE PATIENT AWAKE, ALERT, ORIENTED, COMFORTABLE, NO C/O PAIN, NO DISTRESS NOTED, CALL LIGHT IN REACH. WILL MONITOR.
[2018-09-28 20:00] VITALS: BP 113/73
[2018-09-28] MEDS: ENOXAPARIN SODIUM 40 MG/0.4 ML DISP.SYRIN SQ SCH (21:48)
--- NOTE | 2018-09-28 22:56 | NUR ---
MS/RN PATIENT IS SLEEPING AT THIS TIME, AROUSABLE, APPEAR COMFORTABLE, NO DISTRESS NOTED, CALL LIGHT IN REACH. WILL CONTINUE TO MONITOR
[2018-09-29] MEDS: HYDROCODONE/APAP 5/325MG 1 EACH TABLET PO PRN ×4 (02:07→19:53)
--- NOTE | 2018-09-29 06:23 | NUR ---
MS/RN PATIENT IS SLEEPING, APPEAR COMFORTABLE, NO DISTRESS NOTED, ALL NEEDS ATTENDED AT THIS TIME, WILL CONTINUE TO MONITOR.
[2018-09-29 06:24] LABS: CALCIUM, SERUM 8.7 mg/dL (8.5-10.1); POTASSIUM 3.6 mmol/L (3.5-5.1)
[2018-09-29 06:25] LABS: MAGNESIUM 1.6 mg/dL (1.8-2.4)
[2018-09-29 06:35] LABS: BASOPHILS % (AUTO) 0.4 % (0.0-2.0); EOSINOPHILS % (AUTO) 3.1 % (0.0-6.0); HEMATOCRIT 43 % (33-45); HEMOGLOBIN 14.3 g/dL (11.5-14.8); LYMPHOCYTES # (AUTO) 1.5 /CMM (0.8-4.8); LYMPHOCYTES % (AUTO) 33.2 % (20.0-44.0); MEAN CORPUSCULAR HGB CONC 33 g/dl (31.0-36.0); MEAN CORPUSCULAR VOLUME 90 fL (82-100); MONOCYTES # (AUTO) 0.3 /CMM (0.1-1.30); MONOCYTES % (AUTO) 7.2 % (2.0-12.0); NEUTROPHILS # (AUTO) 2.6 /CMM (1.8-8.9); NEUTROPHILS % (AUTO) 56.1 % (43.0-81.0); PLATELET COUNT (AUTO) 153 /CMM (150-450); RED BLOOD CELL COUNT(AUTO) 4.77 MIL/uL (4.0-5.2); WHITE BLOOD COUNT (AUTO) 4.7 K/uL (4.3-11.0)
--- NOTE | 2018-09-29 07:25 | NUR ---
MS RN OPENING NOTES RECEIVED PT IN BED, ASLEEP, EASILY AROUSED, A/O X4. PT TOLERATING RA, WITH NO ACUTE RESPIRATORY DISTRESS NOTED. PT DENIES ANY PAIN OR DISCOMFORT. PIV TO RAC G20, FLUSHED WITH NS, INTACT AND OPERATIONAL. PT DENIES ANY QUESTIONS OR CONCERNS AT THIS TIME. PT KEPT COMFORTABLE. PT'S BED IN LOWEST, LOCKED POSITION WITH SR X2. CALL LIGHT KEPT WITHIN REACH. WILL CONTINUE PLAN OF CARE.
[2018-09-29 08:00] VITALS: BP 123/79
--- NOTE | 2018-09-29 08:40 | NUR ---
MS RN NOTES PT SEEN AND EVALUATED [place] /NISH. PT MADE AWARE OF PLAN OF CARE. PT ALSO AGREED TO GO TO CUST[facility]IAL IF MD CAN WRITE A LETTER FOR PLAN OF DISCHARGE. MD AGREED AND WILL COORDINATE WITH CM/SW TOLD TO THE PT.
[2018-09-29] MEDS: Magnesium 1GM/D5W 100ML PREMIX 100 ML IV SCH ×2 (08:43→09:47)
[2018-09-29] MEDS: FUROSEMIDE 40 MG TABLET PO SCH (08:44)
[2018-09-29] MEDS: VALSARTAN 80 MG TABLET PO SCH (08:44)
[2018-09-29] MEDS: METOPROLOL TARTRATE 25 MG TABLET PO SCH ×2 (08:44→16:11)
[2018-09-29] MEDS: NIFEdipine XL (30MG) 30 MG TAB PO SCH (08:45)
--- NOTE | 2018-09-29 10:52 | NUR ---
NAMAN met with the pt. bedside to discuss discharge plan. Pt. wants fdc placement as it is recommended by Dr. Hall. SW offered pt. fdc placement, however pt. does not want to go to [facility] for fdc placement. Pt. wants to stay in [facility] because pt. is receiving services from [employer] and is in their Housing for health program. NAMAN contacted pt's tower equipment installer Idris and left him a voicemail message requesting a call back. NAMAN discussed case with housing case manager Hernán as well regarding pt. needing fdc placement, however pt. is declining [facility] fdc placement. Per Dr. Hall, pt. should not go back to the streets due to her medical condition.
[2018-09-29 16:00] VITALS: BP 127/73
--- NOTE | 2018-09-29 18:35 | NUR ---
MS RN CLOSING NOTES PT IN BED, AWAKE, A/O X4. PT TOLERATING RA, WITH NO ACUTE RESPIRATORY DISTRESS NOTED. PT DENIES ANY PAIN OR DISCOMFORT. PIV TO RAC G18, FLUSHED WITH NS, INTACT AND OPERATIONAL. ALL NEEEDS AND CARE ATTENDED. PT KEPT COMFORTABLE. PT'S BED IN LOWEST, LOCKED POSITION WITH SR X2. CALL LIGHT KEPT WITHIN REACH. WILL ENDORSE TO INCOMING NIGHT NURSE FOR COURTNEY.
--- NOTE | 2018-09-29 20:09 | NUR ---
MS/RN RECEIVED PATIENT AWAKE, ALERT, ORIENTED, WITH C/O PAIN 9/10 CHEST AREA, MEDICATED WITH NORCO 5 MG PO ORDERED, WILL MONITOR.
[2018-09-29 20:27] VITALS: BP 119/70
[2018-09-29] MEDS: ENOXAPARIN SODIUM 40 MG/0.4 ML DISP.SYRIN SQ SCH (22:21)
--- NOTE | 2018-09-30 01:03 | NUR ---
MS/TELE/RN PATIENT IS SLEEPING AT THIS TIME, APPEAR COMFORTABLE, NO DISTRESS NOTED, CALL LIGHT IN REACH. WILL CONTINUE TO MONITOR.
[2018-09-30] MEDS: HYDROCODONE/APAP 5/325MG 1 EACH TABLET PO PRN ×3 (01:39→12:51)
--- NOTE | 2018-09-30 06:16 | NUR ---
MS/TELE/RN PATIENT IS STILL SLEEPING AT THIS TIME, APPEAR COMFORTABLE, NO SIGNS OF DISTRESS NOTED CALL LIGHT IN REACH, ALL NEEDS ATTENDED AT THIS TIME, WILL CONTINUE TO MONITOR.
[2018-09-30 06:50] LABS: BASOPHILS % (AUTO) 0.5 % (0.0-2.0); EOSINOPHILS % (AUTO) 3.5 % (0.0-6.0); HEMATOCRIT 43 % (33-45); HEMOGLOBIN 14.5 g/dL (11.5-14.8); LYMPHOCYTES # (AUTO) 1.5 /CMM (0.8-4.8); LYMPHOCYTES % (AUTO) 37.6 % (20.0-44.0); MEAN CORPUSCULAR HGB CONC 34 g/dl (31.0-36.0); MEAN CORPUSCULAR VOLUME 89 fL (82-100); MONOCYTES # (AUTO) 0.3 /CMM (0.1-1.30); MONOCYTES % (AUTO) 8.1 % (2.0-12.0); NEUTROPHILS % (AUTO) 50.3 % (43.0-81.0); PLATELET COUNT (AUTO) 169 /CMM (150-450); RED BLOOD CELL COUNT(AUTO) 4.83 MIL/uL (4.0-5.2); WHITE BLOOD COUNT (AUTO) 4.1 K/uL (4.3-11.0)
[2018-09-30 06:58] LABS: CALCIUM, SERUM 8.8 mg/dL (8.5-10.1); MAGNESIUM 1.7 mg/dL (1.8-2.4); POTASSIUM 3.8 mmol/L (3.5-5.1)
[2018-09-30] MEDS ORDERED: VALS80TA2 PO (07:34)
[2018-09-30] MEDS ORDERED: METO25TA20 PO (07:34)
[2018-09-30] MEDS ORDERED: FURO40TA5 PO (07:34)
--- NOTE | 2018-09-30 07:40 | NUR ---
MS RN NOTES SEEN AND EVALUATED BY DR GALLAGHER. PLAN TO DISCHARGE TO [facility] TO F/U WITH CM TODAY. PRESCRIPTIONS FOR HOME MEDS GIVEN BY MD. PT AWARE. WILL CONTINUE TO MONITOR PT.
[2018-09-30 08:06] VITALS: BP 143/101
[2018-09-30] MEDS: FUROSEMIDE 40 MG TABLET PO SCH (08:08)
[2018-09-30] MEDS: Magnesium 1GM/D5W 100ML PREMIX 100 ML IV SCH ×2 (08:12→09:24)
[2018-09-30] MEDS: METOPROLOL TARTRATE 25 MG TABLET PO SCH (08:15)
[2018-09-30] MEDS: VALSARTAN 80 MG TABLET PO SCH (08:15)
[2018-09-30 08:16] VITALS: BP 143/101
[2018-09-30] MEDS: NIFEdipine XL (30MG) 30 MG TAB PO SCH (08:16)
--- NOTE | 2018-09-30 13:35 | NUR ---
MS INFORMATION SYSTEMS COORDINATOR NOTES PT TO BE DISCHARGE TO RECOMM[facility]ED [facility] [place]. PT REFUSED AND PREFERS TO GO BACK TO [place] SHE [place]. PT A/O X4 AMBULATORY. PT STATED IN PAIN BEFORE LEAVING THE UNIT AT 1330. NORCO PRN REQUESTED GIVEN AT 1251. PT IN HURRY TO LEAVE. RN EXPLAINED PROTOCOL REGARDING TAKING NARCOTICS BEFORE BEING DISCHARGE. PT PREFERS TO GO RIGHT AWAY. DISCHARGE INSTRUCTIONS AND INVENTORY LIST, SIGNED BY PT HERSELF. PT REQUESTED FOR TAP CARD, NSG WELL LOGGING MUD ANALYSIS CAPTAIN PROVIDED IT. MIGUEL/MIGUEL AWARE OF SITUATION. PT ALSO PROVIDED SOME CLOTHES. PRESCRIPTIONS GIVEN TO PT. PT SIGNED HOMELESS WAIVER FORM. ALL NEEDS AND CARE PROVIDED. PIV TO RAC REMOVED, APPLIED DRY DRESSING. PT STATED HER SKIN IS INTACT AND REFUSED TO HAVE PICTURES TAKEN. PT LEFT THE UNIT AT 1330, ESCORTED BY LAURO/EDDIE. PT LEFT THE UNIT WITH NO ACUTE RESPIRATORY DISTRESS. DENIES PAIN OR DISCOMFORT. NELLY AWARE OF DISCHARGE.
== END 2018-09-30 13:25 | disposition home or self-care (01) | DRG 194 ==
LOC: ER 17:39 → TELE 21:37 → MED 09-28 10:04
PROVIDERS: ADMIT Internal Medicine; ATTEND Family Medicine
DX: I11.0 Hypertensive heart disease with heart failure (principal); J96.91 Respiratory failure, unspecified with hypoxia; I50.23 Acute on chronic systolic (congestive) heart failure; F41.9 Anxiety disorder, unspecified; G89.29 Other chronic pain; E83.42 Hypomagnesemia; F17.210 Nicotine dependence, cigarettes, uncomplicated; Z59.0 Homelessness; J44.9 Chronic obstructive pulmonary disease, unspecified; F32.9 Major depressive disorder, single episode, unspecified; I10 Essential (primary) hypertension; Z97.0 Presence of artificial eye
CPT/HCPCS: 36415; 71045-TC; 80048-TC; 80076-TC; 80305; 81000-TC; 83735-TC; 83880; 84100-TC; 84484-TC; 85025-TC; 87081-TC; 87086-TC; 93307-TC; G0378; G0480; J1650; J1940; J3475

== ENCOUNTER 2019-03-18 08:33 | Emergency (ER) | payer OTHER ==
[~2019-03-18] VITALS: Ht 157.5 cm; Wt 68.0 kg
[~2019-03-18 08:33] MED LIST changes: +FURO40TA5 PO; -HYDR25TA4 PO; +METO25TA20 PO; +NIFE-35 PO; -NIFE30TA89 PO; +VALS80TA2 PO
--- NOTE | 2019-03-18 08:47 | NUR ---
Darren martinez alert c/c abdomianl pain and nauses non vomiting @ this time MD aware and bedside patient to monitor ,lab ,gown ,keep aptient comfortable
[2019-03-18] MEDS ORDERED: FAMOTIDINE/PF INJ 20 MG/2 ML VIAL IV ONE ×2 (08:58→09:00)
[2019-03-18] MEDS ORDERED: ONDANSETRON HCL/PF 4 MG/2 ML VIAL ONE (08:59)
[2019-03-18 09:00] LABS: BASOPHILS % (AUTO) 0.4 % (0.0-2.0); EOSINOPHILS % (AUTO) 0.1 % (0.0-6.0); HEMATOCRIT 39 % (33-45); HEMOGLOBIN 12.8 g/dL (11.5-14.8); LYMPHOCYTES # (AUTO) 0.5 /CMM (0.8-4.8); LYMPHOCYTES % (AUTO) 12.5 % (20.0-44.0); MEAN CORPUSCULAR HGB CONC 33 g/dl (31.0-36.0); MEAN CORPUSCULAR VOLUME 93 fL (82-100); MONOCYTES # (AUTO) 0.1 /CMM (0.1-1.30); MONOCYTES % (AUTO) 2.3 % (2.0-12.0); NEUTROPHILS # (AUTO) 3.4 /CMM (1.8-8.9); NEUTROPHILS % (AUTO) 84.7 % (43.0-81.0); PLATELET COUNT (AUTO) 128 /CMM (150-450); RED BLOOD CELL COUNT(AUTO) 4.19 MIL/uL (4.0-5.2)
[2019-03-18] MEDS ORDERED: ONDANSETRON HCL/PF 4 MG/2 ML VIAL IV ONE (09:00)
[2019-03-18 09:04] LABS: CALCIUM, SERUM 8.7 mg/dL (8.5-10.1); CREATININE 0.9 mg/dL (0.6-1.3); POTASSIUM 4.1 mmol/L (3.5-5.1)
[2019-03-18] MEDS ORDERED: IV NS 0.9% 250 ML IV ONE (09:14)
[2019-03-18] MEDS ORDERED: CT SWABBABLE VALVE TRANS SET 1 EA INFUS.SET MC ONE (09:14)
[2019-03-18] MEDS ORDERED: IOHEXOL-300 100 ML VIAL IV ONE (09:14)
[2019-03-18 09:19] LABS: ALBUMIN 4.3 g/dL (3.4-5.0); BILIRUBIN,DIRECT 0.7 mg/dL (0.0-0.2); BILIRUBIN,TOTAL 1.3 mg/dL (0.2-1.0); TOTAL PROTEIN, SERUM 8.5 g/dL (6.4-8.2)
[2019-03-18 09:25] LABS: APPEARANCE,URINE Clear (CLEAR); BILIRUBIN,URINE Negative (NEGATIVE); BLOOD, URINE Small Ery/uL (NEGATIVE); COLOR,URINE Yellow (YELLOW); KETONES,URINE 15 (NEGATIVE); LEUKOCYTE ESTERASE ,URINE Negative (NEGATIVE); NITRITE, URINE Negative (NEGATIVE); PH,URINE 7.5 (5.0-8.0); PROTEIN,URINE 30 mg/dl (NEGATIVE); UGLUCOSE Negative (NEGATIVE); UROBILINOGEN,URINE 0.2 EU/dL (0.2)
[2019-03-18 09:35] LABS: BACTERIA,URINE Rare /HPF (None Seen); SQUAMOUS EPITHELIAL CELL,UR Few /HPF (None Seen); WBC,URINE NONE SEEN /HPF (0-3)
--- NOTE | 2019-03-18 09:39 | NUR ---
Patient awake alert noted able to ambulated to and bathroom urine obtined and send to lab
--- NOTE | 2019-03-18 10:41 | NUR ---
Patient asleep but arousable
--- NOTE | 2019-03-18 11:18 | NUR ---
Artur awake alert ambulatory declined Fpc refused to sign patient agrees to follw up PMD in 1 day patient belonging back an given
[2019-03-18 11:20] VITALS: BP 167/98
--- NOTE | 2019-03-18 11:20 | NUR ---
Patient going back to previous living arrangement
--- NOTE | 2019-03-18 11:44 | NUR ---
Patient LAC removed noted no edema ,no pain cath intact
== END 2019-03-18 11:44 | disposition home or self-care (01) ==
LOC: ER 08:34
DX: R10.13 Epigastric pain (principal); R11.0 Nausea; I10 Essential (primary) hypertension; F10.10 Alcohol abuse, uncomplicated; F17.200 Nicotine dependence, unspecified, uncomplicated; M54.9 Dorsalgia, unspecified; G89.29 Other chronic pain; Y90.9 Presence of alcohol in blood, level not specified; Z59.0 Homelessness; Z98.890 Other specified postprocedural states; Z88.6 Allergy status to analgesic agent; Z88.8 Allergy status to other drugs, medicaments and biological substances
CPT/HCPCS: 36415; 74177; 80048; 80076; 81001; 83690; 85025; 87086; 96374; 96375; 99284; J2405; J3490; J7030; J7050; Q9967; 81000-TC

== ENCOUNTER 2021-04-23 05:09 | Emergency (ER) | payer OTHER ==
[~2021-04-23] VITALS: Ht 157.5 cm; Wt 88.5 kg
--- NOTE | 2021-04-23 05:37 | NUR ---
PATIENT BIBRA 39 FROM HOME C/O GEN ABD PAIN X3 DAYS. +NAUSEA. PATIENT IS A/O X 4, RR EVEN AND UNLABORED, NO SOB NOTED. PATIENT CONNECTED TO MONITOR.
--- NOTE | 2021-04-23 05:38 | NUR ---
URINE SENT TO LAB
[2021-04-23 05:40] LABS: BASOPHILS % (AUTO) 0.4 % (0.0-2.0); EOSINOPHILS % (AUTO) 1.4 % (0.0-6.0); HEMATOCRIT 38 % (33-45); HEMOGLOBIN 12.5 g/dL (11.5-14.8); LYMPHOCYTES # (AUTO) 2.4 K/uL (0.8-4.8); LYMPHOCYTES % (AUTO) 30.4 % (20.0-44.0); MEAN CORPUSCULAR HGB CONC 33 g/dl (31.0-36.0); MEAN CORPUSCULAR VOLUME 89 fL (82-100); MONOCYTES # (AUTO) 0.5 K/uL (0.1-1.30); MONOCYTES % (AUTO) 6.3 % (2.0-12.0); NEUTROPHILS # (AUTO) 4.8 K/uL (1.8-8.9); NEUTROPHILS % (AUTO) 61.5 % (43.0-81.0); PLATELET COUNT (AUTO) 242 K/uL (150-450); RED BLOOD CELL COUNT(AUTO) 4.24 MIL/uL (4.0-5.2); WHITE BLOOD COUNT (AUTO) 7.7 K/uL (4.3-11.0)
[2021-04-23 05:43] LABS: BILIRUBIN,URINE NEGATIVE (NEGATIVE); COLOR,URINE YELLOW (YELLOW); LEUKOCYTE ESTERASE ,URINE TRACE (NEGATIVE); NITRITE, URINE NEGATIVE (NEGATIVE); PH,URINE 5.5 (5.0-8.0); PROTEIN,URINE 100 mg/dl (NEGATIVE); UGLUCOSE NEGATIVE (NEGATIVE)
[2021-04-23 05:56] LABS: ALBUMIN 3.4 g/dL (3.4-5.0); BILIRUBIN,DIRECT 0.4 mg/dL (0.0-0.2); BILIRUBIN,TOTAL 0.8 mg/dL (0.2-1.0); CALCIUM, SERUM 8.4 mg/dL (8.5-10.1); CREATININE 1.1 mg/dL (0.6-1.3); POTASSIUM 4.9 mmol/L (3.5-5.1); TOTAL PROTEIN, SERUM 7.8 g/dL (6.4-8.2)
[2021-04-23 05:59] LABS: WBC,URINE 21-50 /HPF (0-3)
[2021-04-23 06:00] LABS: BACTERIA,URINE Many /HPF (None Seen); SQUAMOUS EPITHELIAL CELL,UR Moderate /HPF (None Seen)
[2021-04-23] MEDS ORDERED: PANTOPRAZOLE 40 MG VIAL ONE (06:18)
[2021-04-23] MEDS ORDERED: ONDANSETRON HCL/PF 4 MG/2 ML VIAL ONE (06:18)
[2021-04-23] MEDS ORDERED: KETOROLAC TROMETHAMINE INJ 30 MG/ML VIAL ONE (06:18)
[2021-04-23] MEDS ORDERED: CEFTRIAXONE 1GM BAG (ER ONLY) 1 GM/50 ML PIGGYBACK IV ONE (06:30)
[2021-04-23] MEDS ORDERED: IV NS 0.9% 1,000 ML BAG IV ONE (06:30)
[2021-04-23] MEDS ORDERED: ONDANSETRON HCL/PF 4 MG/2 ML VIAL IVP ONE (06:30)
[2021-04-23] MEDS ORDERED: PANTOPRAZOLE 40 MG VIAL IV ONE (06:30)
[2021-04-23] MEDS ORDERED: KETOROLAC TROMETHAMINE INJ 30 MG/ML VIAL IV ONE (06:30)
--- NOTE | 2021-04-23 06:59 | NUR ---
L WRIST #22G S/L; PATENT AND INTACT.
--- NOTE | 2021-04-23 07:00 | NUR ---
PT TAKEN TO CT VIA ZARA
[2021-04-23] MEDS ORDERED: CEFTRIAXONE 1GM BAG (ER ONLY) 50 ML IV ONE (07:11)
--- NOTE | 2021-04-23 07:30 | NUR ---
ASSESSED PT ON BED ASLEEP EASILY AROUSABLE, NOT IN RESPIRATORY DISTRESS, V/S STABLE, KEPT RESTED AND COMFORTABLE. WILL CONTINUE TO MONITOR.
[2021-04-23] MEDS ORDERED: OLANZAPINE 10 MG VIAL IM ONE ×2 (08:00→08:31)
[2021-04-23] MEDS ORDERED: PANT40TA2 PO (10:05)
[2021-04-23] MEDS ORDERED: CEPH500C2 PO (10:05)
--- NOTE | 2021-04-23 11:10 | NUR ---
CALLED MIGUEL ÁNGEL FOR PT DISCHARGED.
--- NOTE | 2021-04-23 11:31 | NUR ---
Patient discharged to home in stable condition. Written and verbal after care instructions given. Patient verbalizes understanding of instruction.
[2021-04-23 11:32] VITALS: BP 132/83
--- NOTE | 2021-04-23 11:32 | NUR ---
IV removed. Catheter intact and site benign. Pressure and 4x4 applied to site. No bleeding noted.
== END 2021-04-23 11:33 | disposition home or self-care (01) ==
LOC: ER 05:15
DX: R10.13 Epigastric pain (principal); F19.229 Other psychoactive substance dependence with intoxication, unspecified; N39.0 Urinary tract infection, site not specified; K02.9 Dental caries, unspecified; I10 Essential (primary) hypertension; I49.9 Cardiac arrhythmia, unspecified; G89.29 Other chronic pain; M54.9 Dorsalgia, unspecified; F32.9 Major depressive disorder, single episode, unspecified; H54.8 Legal blindness, as defined in USA; F17.200 Nicotine dependence, unspecified, uncomplicated; Z44 Encounter for fitting and adjustment of external prosthetic device; Z79.84 Long term (current) use of oral hypoglycemic drugs; Z79.811 Long term (current) use of aromatase inhibitors; Z79.899 Other long term (current) drug therapy
CPT/HCPCS: 36415; 71045; 74176; 80048; 80076; 80307; 80320; 81001; 83690; 85025; 85730; 87086; 96365; 96372; 96375; 99285; J0696; J2405; J3490; J7030; C9113; G0480; J1885

== ENCOUNTER 2021-04-28 02:30 | Inpatient (IN) | payer OTHER ==
[~2021-04-28] VITALS: Ht 157.5 cm; Wt 86.6 kg
[~2021-04-28 02:30] MED LIST changes: +CEPH500C2 PO; +PANT40TA2 PO
[2021-04-28] MEDS ORDERED: FUROSEMIDE 40 MG/4 ML VIAL ONE ×2 (02:37→06:58)
[2021-04-28] MEDS ORDERED: NTG 50 MG/D5W250 ML BOTTL 250 ML IV ONE ×2 (02:37→03:00)
[2021-04-28] MEDS ORDERED: FUROSEMIDE 40 MG/4 ML VIAL IV ONE (03:00)
[2021-04-28 03:09] LABS: BASOPHILS % (AUTO) 0.2 % (0.0-2.0); EOSINOPHILS % (AUTO) 0.9 % (0.0-6.0); HEMATOCRIT 38 % (33-45); HEMOGLOBIN 11.8 g/dL (11.5-14.8); LYMPHOCYTES # (AUTO) 2.2 K/uL (0.8-4.8); LYMPHOCYTES % (AUTO) 23.9 % (20.0-44.0); MEAN CORPUSCULAR HGB CONC 32 g/dl (31.0-36.0); MEAN CORPUSCULAR VOLUME 91 fL (82-100); MONOCYTES # (AUTO) 0.5 K/uL (0.1-1.30); MONOCYTES % (AUTO) 5.6 % (2.0-12.0); NEUTROPHILS # (AUTO) 6.4 K/uL (1.8-8.9); NEUTROPHILS % (AUTO) 69.4 % (43.0-81.0); PLATELET COUNT (AUTO) 237 K/uL (150-450); RED BLOOD CELL COUNT(AUTO) 4.12 MIL/uL (4.0-5.2); WHITE BLOOD COUNT (AUTO) 9.3 K/uL (4.3-11.0)
[2021-04-28 03:11] LABS: CALCIUM, SERUM 8.6 mg/dL (8.5-10.1); CREATININE 1.7 mg/dL (0.6-1.3); POTASSIUM 4.8 mmol/L (3.5-5.1)
[2021-04-28 03:24] LABS: ALBUMIN 3.9 g/dL (3.4-5.0); BILIRUBIN,DIRECT 0.9 mg/dL (0.0-0.2); BILIRUBIN,TOTAL 1.8 mg/dL (0.2-1.0); TOTAL PROTEIN, SERUM 8.5 g/dL (6.4-8.2)
[2021-04-28] MEDS ORDERED: ENOXAPARIN SODIUM 80 MG/0.8 ML DISP.SYRIN SQ ONE ×2 (04:00→04:12)
[2021-04-28] MEDS ORDERED: ENALAPRILAT DIHYD. (2.5MG/2ML) 1.25 MG/ML VIAL IV ONE (04:00)
[2021-04-28] MEDS ORDERED: ENALAPRILAT INJ (1.25 MG/ML) 1.25 MG/ML VIAL IV ONE (04:12)
[2021-04-28 04:52] LABS: ABG PH 7.381 (7.350-7.450); ABG PO2 130.2 mmHg (75.0-100.0); COHb 0.3 % (0.5-1.5); MetHb 0.2 % (0.0-1.5); O2Hb 97.6 % (94.0-97.0); SITE, ABG Right Radial; VENT MODE, BG S/T 16 15/5 30%
[2021-04-28] MEDS ORDERED: MAG HYDROX/AL HYDROX/SIMETH 30 ML UDC PO PRN (05:00)
[2021-04-28] MEDS ORDERED: ACETAMINOPHEN 325 MG TABLET PO PRN (05:00)
[2021-04-28] MEDS ORDERED: LEVALBUTEROL HCL NEB 1.25 MG/0.5 ML VIAL.NEB NEB PRN (05:00)
[2021-04-28] MEDS ORDERED: LABETALOL 20 MG/4 ML VIAL IV PRN (05:00)
[2021-04-28] MEDS ORDERED: MAGNESIUM HYDROXIDE 30 ML UDC PO PRN (05:00)
[2021-04-28] MEDS ORDERED: METOPROLOL TARTRATE 50 MG TABLET ONE (05:24)
[2021-04-28] MEDS: METOPROLOL TARTRATE 25 MG TABLET PO SCH ×2 (05:30→17:37)
[2021-04-28] MEDS: IPRATROPIUM/ALBUTEROL INHALER IH SCH ×2 (06:00→12:00)
[2021-04-28] MEDS ORDERED: PANTOPRAZOLE 40 MG TABLET.DR PO ONE (06:58)
[2021-04-28] MEDS: FUROSEMIDE 40 MG/4 ML VIAL IV SCH ×3 (07:03→17:37)
[2021-04-28] MEDS: PANTOPRAZOLE 40 MG TABLET.DR PO SCH (07:03)
[2021-04-28] MEDS ORDERED: NIFEdipine XL (30MG) 30 MG TAB PO SCH (09:00)
[2021-04-28] MEDS: HEPARIN SODIUM, PORCINE 5000 UNITS/1 ML VIAL SQ SCH ×2 (10:00→21:28)
[2021-04-28] MEDS: VALSARTAN 80 MG TABLET PO SCH (10:00)
[2021-04-28] MEDS ORDERED: VALSARTAN 80 MG TABLET ONE (10:11)
[2021-04-28] MEDS ORDERED: HEPARIN SODIUM, PORCINE 5000 UNITS/1 ML VIAL ONE (10:11)
[2021-04-28] MEDS ORDERED: NIFEdipine (10MG) 10 MG CAPSULE PO ONE (10:11)
[2021-04-28 20:23] VITALS: BP 113/58
[2021-04-29 00:07] LABS: BILIRUBIN,URINE NEGATIVE (NEGATIVE); COLOR,URINE YELLOW (YELLOW); LEUKOCYTE ESTERASE ,URINE NEGATIVE (NEGATIVE); NITRITE, URINE NEGATIVE (NEGATIVE); PROTEIN,URINE NEGATIVE (NEGATIVE); UGLUCOSE NEGATIVE (NEGATIVE); UROBILINOGEN,URINE 0.2 EU/dL (0.2)
[2021-04-29 00:17] VITALS: BP 110/66
[2021-04-29] MEDS: BACLOFEN (10 MG) 10 MG TABLET PO PRN ×2 (00:48→20:53)
[2021-04-29] MEDS: MORPHINE SULFATE INJ 2 MG/ML DISP.SYRIN IV PRN ×3 (01:26→17:52)
[2021-04-29 04:26] VITALS: BP 95/64
[2021-04-29 07:03] LABS: BASOPHILS % (AUTO) 0.2 % (0.0-2.0); HEMATOCRIT 37 % (33-45); HEMOGLOBIN 12.1 g/dL (11.5-14.8); LYMPHOCYTES # (AUTO) 1.2 K/uL (0.8-4.8); LYMPHOCYTES % (AUTO) 20.1 % (20.0-44.0); MEAN CORPUSCULAR HGB CONC 33 g/dl (31.0-36.0); MEAN CORPUSCULAR VOLUME 87 fL (82-100); MONOCYTES # (AUTO) 0.4 K/uL (0.1-1.30); MONOCYTES % (AUTO) 6.4 % (2.0-12.0); NEUTROPHILS # (AUTO) 4.1 K/uL (1.8-8.9); NEUTROPHILS % (AUTO) 70.3 % (43.0-81.0); PLATELET COUNT (AUTO) 216 K/uL (150-450); RED BLOOD CELL COUNT(AUTO) 4.22 MIL/uL (4.0-5.2); WHITE BLOOD COUNT (AUTO) 5.9 K/uL (4.3-11.0)
[2021-04-29 07:13] LABS: ALBUMIN 3.2 g/dL (3.4-5.0); BILIRUBIN,TOTAL 1.1 mg/dL (0.2-1.0); CALCIUM, SERUM 8.4 mg/dL (8.5-10.1); CREATININE 1.4 mg/dL (0.6-1.3); MAGNESIUM 1.6 mg/dL (1.8-2.4); PHOSPHORUS 3.9 mg/dL (2.5-4.9); POTASSIUM 3.5 mmol/L (3.5-5.1); TOTAL PROTEIN, SERUM 7.4 g/dL (6.4-8.2)
[2021-04-29 08:00] VITALS: BP 129/79
[2021-04-29] MEDS: PANTOPRAZOLE 40 MG TABLET.DR PO SCH (08:41)
[2021-04-29] MEDS: FUROSEMIDE 40 MG/4 ML VIAL IV SCH ×3 (08:44→16:27)
[2021-04-29] MEDS: VALSARTAN 80 MG TABLET PO SCH (08:44)
[2021-04-29] MEDS: METOPROLOL TARTRATE 25 MG TABLET PO SCH ×2 (08:45→16:27)
[2021-04-29] MEDS: HEPARIN SODIUM, PORCINE 5000 UNITS/1 ML VIAL SQ SCH ×2 (08:46→20:55)
[2021-04-29] MEDS ORDERED: MAGNESIUM OXIDE 400 MG TABLET PO ONE (09:30)
[2021-04-29 09:34] LABS: BACTERIA,URINE None seen /HPF (None Seen); SQUAMOUS EPITHELIAL CELL,UR Rare /HPF (None Seen)
[2021-04-29] MEDS: NICOTINE PATCH (14MG) 14 MG PATCH.TD24 TD SCH (10:03)
[2021-04-29 10:54] LABS: ABG BASE EXCESS 0.8 mmol/L; ABG OXYGEN SATURATION 89.9 % (92.0-98.5); ABG PCO2 41.1 mmHg (35.0-45.0); ABG PO2 62.3 mmHg (75.0-100.0); AaDO2 38.2 mmHg; COHb 0.5 % (0.5-1.5); MetHb 0.2 % (0.0-1.5); O2Hb 89.3 % (94.0-97.0); SITE, ABG Right Radial; VENT MODE, BG ROOM AIR
[2021-04-29 16:00] VITALS: BP 160/80
[2021-04-29] MEDS: IPRATROPIUM NEB FS 0.5 MG/2.5 ML AMPUL.NEB NEB SCH (19:30)
[2021-04-29] MEDS: ALBUTEROL FS 2.5 MG/3 ML VIAL.NEB NEB SCH (19:30)
[2021-04-29 20:00] VITALS: BP 131/85
[2021-04-29] MEDS: ONDANSETRON HCL/PF 4 MG/2 ML VIAL IVP PRN (21:01)
[2021-04-30] VITALS: BP 141/85
[2021-04-30] MEDS: MORPHINE SULFATE INJ 2 MG/ML DISP.SYRIN IV PRN ×4 (02:34→22:37)
[2021-04-30 04:00] VITALS: BP 115/58
[2021-04-30 06:43] LABS: BASOPHILS % (AUTO) 0.1 % (0.0-2.0); EOSINOPHILS % (AUTO) 0.7 % (0.0-6.0); HEMATOCRIT 40 % (33-45); HEMOGLOBIN 13.2 g/dL (11.5-14.8); LYMPHOCYTES # (AUTO) 1.4 K/uL (0.8-4.8); LYMPHOCYTES % (AUTO) 29.2 % (20.0-44.0); MEAN CORPUSCULAR HGB CONC 33 g/dl (31.0-36.0); MEAN CORPUSCULAR VOLUME 86 fL (82-100); MONOCYTES # (AUTO) 0.8 K/uL (0.1-1.30); MONOCYTES % (AUTO) 17.8 % (2.0-12.0); NEUTROPHILS # (AUTO) 2.5 K/uL (1.8-8.9); NEUTROPHILS % (AUTO) 52.2 % (43.0-81.0); PLATELET COUNT (AUTO) 202 K/uL (150-450); RED BLOOD CELL COUNT(AUTO) 4.62 MIL/uL (4.0-5.2); WHITE BLOOD COUNT (AUTO) 4.7 K/uL (4.3-11.0)
[2021-04-30 07:20] LABS: ALBUMIN 3.4 g/dL (3.4-5.0); BILIRUBIN,TOTAL 0.9 mg/dL (0.2-1.0); CALCIUM, SERUM 8.1 mg/dL (8.5-10.1); CREATININE 1.4 mg/dL (0.6-1.3); MAGNESIUM 1.5 mg/dL (1.8-2.4); POTASSIUM 3.1 mmol/L (3.5-5.1); TOTAL PROTEIN, SERUM 7.9 g/dL (6.4-8.2)
[2021-04-30] MEDS: PANTOPRAZOLE 40 MG TABLET.DR PO SCH (07:44)
[2021-04-30 08:00] VITALS: BP 108/75
[2021-04-30] MEDS: NICOTINE PATCH (14MG) 14 MG PATCH.TD24 TD SCH (08:19)
[2021-04-30] MEDS: FUROSEMIDE 40 MG/4 ML VIAL IV SCH (08:19)
[2021-04-30] MEDS: METOPROLOL TARTRATE 25 MG TABLET PO SCH ×2 (08:20→16:42)
[2021-04-30] MEDS: HEPARIN SODIUM, PORCINE 5000 UNITS/1 ML VIAL SQ SCH ×2 (08:21→20:35)
[2021-04-30] MEDS: VALSARTAN 80 MG TABLET PO SCH (08:37)
[2021-04-30 10:03] LABS: LYMPHOCYTES % (MANUAL) 21 % (16-48); MONOCYTES % (MANUAL) 16 % (0-11.0); NEUTROPHILS % (MANUAL) 63 (42-76)
[2021-04-30] MEDS ORDERED: POTASSIUM CHLORIDE 20 MEQ TAB.PRT.SR PO ONE (10:30)
[2021-04-30] MEDS: Magnesium 1GM/D5W 100ML PREMIX 100 ML IV SCH ×2 (10:35→11:56)
[2021-04-30] MEDS: POTASSIUM CHLORIDE 20 MEQ TAB.PRT.SR PO SCH ×3 (10:50→13:20)
[2021-04-30] MEDS: FUROSEMIDE 40 MG TABLET PO SCH (10:50)
[2021-04-30 11:50] VITALS: BP 119/70
[2021-04-30 16:00] VITALS: BP 119/78
[2021-04-30] MEDS: ALBUTEROL FS 2.5 MG/3 ML VIAL.NEB NEB SCH (19:30)
[2021-04-30] MEDS: IPRATROPIUM NEB FS 0.5 MG/2.5 ML AMPUL.NEB NEB SCH (19:30)
[2021-04-30 20:00] VITALS: BP 128/77
[2021-05-01] VITALS: BP 140/84
[2021-05-01] MEDS ORDERED: MORPHINE SULFATE SR 15 MG TABLET.SA PO PRN (00:30)
[2021-05-01] MEDS: IPRATROPIUM NEB FS 0.5 MG/2.5 ML AMPUL.NEB NEB SCH ×4 (01:30→20:29)
[2021-05-01] MEDS: ALBUTEROL FS 2.5 MG/3 ML VIAL.NEB NEB SCH ×4 (01:30→20:29)
[2021-05-01] MEDS: ONDANSETRON HCL/PF 4 MG/2 ML VIAL IVP PRN (02:42)
[2021-05-01] MEDS: MORPHINE SULFATE INJ 2 MG/ML DISP.SYRIN IV PRN ×3 (02:42→20:22)
[2021-05-01 04:00] VITALS: BP 134/72
[2021-05-01 06:53] LABS: BASOPHILS % (AUTO) 0.2 % (0.0-2.0); EOSINOPHILS % (AUTO) 0.3 % (0.0-6.0); HEMATOCRIT 39 % (33-45); LYMPHOCYTES # (AUTO) 2.1 K/uL (0.8-4.8); LYMPHOCYTES % (AUTO) 48.4 % (20.0-44.0); MEAN CORPUSCULAR HGB CONC 34 g/dl (31.0-36.0); MEAN CORPUSCULAR VOLUME 85 fL (82-100); MONOCYTES # (AUTO) 0.7 K/uL (0.1-1.30); MONOCYTES % (AUTO) 16.3 % (2.0-12.0); NEUTROPHILS # (AUTO) 1.5 K/uL (1.8-8.9); NEUTROPHILS % (AUTO) 34.8 % (43.0-81.0); PLATELET COUNT (AUTO) 202 K/uL (150-450); RED BLOOD CELL COUNT(AUTO) 4.56 MIL/uL (4.0-5.2); WHITE BLOOD COUNT (AUTO) 4.3 K/uL (4.3-11.0)
[2021-05-01 07:34] LABS: ALBUMIN 3.3 g/dL (3.4-5.0); BILIRUBIN,TOTAL 0.5 mg/dL (0.2-1.0); CALCIUM, SERUM 7.9 mg/dL (8.5-10.1); CREATININE 1.3 mg/dL (0.6-1.3); MAGNESIUM 1.8 mg/dL (1.8-2.4); PHOSPHORUS 3.9 mg/dL (2.5-4.9); POTASSIUM 3.7 mmol/L (3.5-5.1); TOTAL PROTEIN, SERUM 7.7 g/dL (6.4-8.2)
[2021-05-01] MEDS: PANTOPRAZOLE 40 MG TABLET.DR PO SCH (07:46)
[2021-05-01] MEDS: FUROSEMIDE 40 MG TABLET PO SCH (08:57)
[2021-05-01] MEDS: METOPROLOL TARTRATE 25 MG TABLET PO SCH ×2 (08:58→17:05)
[2021-05-01] MEDS: NICOTINE PATCH (14MG) 14 MG PATCH.TD24 TD SCH (08:58)
[2021-05-01] MEDS: VALSARTAN 80 MG TABLET PO SCH (08:58)
[2021-05-01] MEDS: HEPARIN SODIUM, PORCINE 5000 UNITS/1 ML VIAL SQ SCH ×2 (08:59→20:26)
[2021-05-01 09:19] VITALS: BP 137/85
[2021-05-01] MEDS ORDERED: SACU1TAB PO (11:33)
[2021-05-01] MEDS ORDERED: EMPA10TA PO (11:33)
[2021-05-01] MEDS ORDERED: IV NS 0.9% 250 ML IV ONE (11:57)
[2021-05-01] MEDS ORDERED: NITROGLYCERIN 0.4 MG/TAB BOTTLE ONE (11:57)
[2021-05-01] MEDS ORDERED: METOPROLOL TARTRATE INJ 5 MG/5 ML AMPUL ONE (11:57)
[2021-05-01] MEDS ORDERED: IOHEXOL-350 100 ML VIAL IV ONE (11:57)
[2021-05-01] MEDS ORDERED: CT SWABBABLE VALVE TRANS SET 1 EA INFUS.SET MC ONE (11:57)
[2021-05-01 12:05] LABS: LYMPHOCYTES % (MANUAL) 38 % (16-48); MONOCYTES % (MANUAL) 16 % (0-11.0); NEUTROPHILS % (MANUAL) 46 (42-76)
[2021-05-01] MEDS: METOPROLOL TARTRATE INJ 5 MG/5 ML AMPUL IVP PRN ×2 (12:24→12:29)
[2021-05-01] MEDS ORDERED: NITROGLYCERIN 0.4 MG/TAB BOTTLE SL ONE (12:30)
[2021-05-01 20:00] VITALS: BP 119/73
[2021-05-02] VITALS: BP 156/93
[2021-05-02] MEDS: IPRATROPIUM NEB FS 0.5 MG/2.5 ML AMPUL.NEB NEB SCH ×3 (01:30→13:30)
[2021-05-02] MEDS: ALBUTEROL FS 2.5 MG/3 ML VIAL.NEB NEB SCH ×3 (01:30→13:30)
[2021-05-02] MEDS: MORPHINE SULFATE INJ 2 MG/ML DISP.SYRIN IV PRN ×2 (03:36→15:49)
[2021-05-02 04:00] VITALS: BP 145/72
[2021-05-02 06:20] LABS: BASOPHILS % (AUTO) 0.3 % (0.0-2.0); HEMATOCRIT 39 % (33-45); HEMOGLOBIN 12.9 g/dL (11.5-14.8); LYMPHOCYTES # (AUTO) 1.8 K/uL (0.8-4.8); LYMPHOCYTES % (AUTO) 51.8 % (20.0-44.0); MEAN CORPUSCULAR HGB CONC 33 g/dl (31.0-36.0); MEAN CORPUSCULAR VOLUME 87 fL (82-100); MONOCYTES # (AUTO) 0.4 K/uL (0.1-1.30); MONOCYTES % (AUTO) 13.1 % (2.0-12.0); NEUTROPHILS # (AUTO) 1.1 K/uL (1.8-8.9); NEUTROPHILS % (AUTO) 31.8 % (43.0-81.0); PLATELET COUNT (AUTO) 199 K/uL (150-450); RED BLOOD CELL COUNT(AUTO) 4.54 MIL/uL (4.0-5.2); WHITE BLOOD COUNT (AUTO) 3.4 K/uL (4.3-11.0)
[2021-05-02 06:37] LABS: CALCIUM, SERUM 8.2 mg/dL (8.5-10.1); CREATININE 1.2 mg/dL (0.6-1.3); MAGNESIUM 1.9 mg/dL (1.8-2.4); PHOSPHORUS 3.7 mg/dL (2.5-4.9); POTASSIUM 3.9 mmol/L (3.5-5.1)
[2021-05-02 08:00] VITALS: BP 107/61
[2021-05-02] MEDS: NICOTINE PATCH (14MG) 14 MG PATCH.TD24 TD SCH (08:22)
[2021-05-02] MEDS: FUROSEMIDE 40 MG TABLET PO SCH (08:23)
[2021-05-02] MEDS: VALSARTAN 80 MG TABLET PO SCH (08:26)
[2021-05-02] MEDS: METOPROLOL TARTRATE 25 MG TABLET PO SCH (08:27)
[2021-05-02] MEDS: PANTOPRAZOLE 40 MG TABLET.DR PO SCH (08:27)
[2021-05-02] MEDS: HEPARIN SODIUM, PORCINE 5000 UNITS/1 ML VIAL SQ SCH (08:32)
[2021-05-02 16:00] VITALS: BP 151/72
== END 2021-05-02 16:45 | disposition home or self-care (01) | DRG 194 ==
LOC: ER 02:31 → TRANSITION 05:04 → TELE 12:13
PROVIDERS: ADMIT Internal Medicine; ATTEND Student in an Organized Health Care Education/Training Program
PROC: 5A09357 Assistance with Respiratory Ventilation, Less than 24 Consecutive Hours, Continuous Positive Airway Pressure (ICD-10-PCS; principal; 2021-04-28)
PROC: 05HD33Z Insertion of Infusion Device into Right Cephalic Vein, Percutaneous Approach (ICD-10-PCS; 2021-05-01)
DX: I13.0 Hypertensive heart and chronic kidney disease with heart failure and stage 1 through stage 4 chronic kidney disease, or unspecified chronic kidney disease (principal); N17.0 Acute kidney failure with tubular necrosis; J96.01 Acute respiratory failure with hypoxia; I50.23 Acute on chronic systolic (congestive) heart failure; I21.A1 Myocardial infarction type 2; N18.1 Chronic kidney disease, stage 1; I42.9 Cardiomyopathy, unspecified; I27.20 Pulmonary hypertension, unspecified; F15.10 Other stimulant abuse, uncomplicated; H54.40 Blindness, one eye, unspecified eye; Z97.0 Presence of artificial eye; I25.10 Atherosclerotic heart disease of native coronary artery without angina pectoris; F17.210 Nicotine dependence, cigarettes, uncomplicated; E66.9 Obesity, unspecified; F31.9 Bipolar disorder, unspecified; R74.01 Elevation of levels of liver transaminase levels; Z79.899 Other long term (current) drug therapy
CPT/HCPCS: 36415; 36600; 71045-TC; 71250-TC; 75574; 76705-TC; 76770-TC; 80048-TC; 80053-TC; 80076-TC; 81001; 82570-TC; 82803-TC; 83605-TC; 83735-TC; 83880; 84100-TC; 84484-TC; 85025-TC; 85730-TC; 87081-TC; 93307-TC; 93970-TC; 94799-TC; C9803; G0378; J1644; J1650; J1940; J2270; J2405; J3475; J3490; J7050; Q9967

== ENCOUNTER 2021-11-29 07:47 | Emergency (ER) | payer OTHER ==
[~2021-11-29] VITALS: Ht 157.5 cm; Wt 81.6 kg
[~2021-11-29 07:47] MED LIST changes: +EMPA10TA PO; +SACU1TAB PO
--- NOTE | 2021-11-29 07:47 | NUR ---
TO ER BED 3. BIB RA 39 FROM [place] C/O SOB X4 DAYS, PT UNABLE TO GO TO HER PMD TO REFILL HER MEDS, HAS BEEN OUT FOR 2 WEEKS. HAS HX OF SMOKING. PT ALSO STATED SHE HAS HAD ABOMINAL PAIN 6/10 PAIN THAT HAS BEEN CHRONIC. PT ATTACHED TO MONITOR. A&OX4. WARM BLANKET PROVIDED FOR COMFORT. AWAITNG MD ORDERS.
--- NOTE | 2021-11-29 08:09 | NUR ---
PORTRAIT ARTIST AT BEDSIDE
[2021-11-29 08:18] LABS: BASOPHILS % (AUTO) 0.4 % (0.0-2.0); EOSINOPHILS % (AUTO) 1.1 % (0.0-6.0); HEMATOCRIT 36 % (33-45); HEMOGLOBIN 11.9 g/dL (11.5-14.8); LYMPHOCYTES # (AUTO) 1.7 K/uL (0.8-4.8); LYMPHOCYTES % (AUTO) 26.1 % (20.0-44.0); MEAN CORPUSCULAR HGB CONC 33 g/dl (31.0-36.0); MEAN CORPUSCULAR VOLUME 92 fL (82-100); MONOCYTES # (AUTO) 0.3 K/uL (0.1-1.30); NEUTROPHILS # (AUTO) 4.4 K/uL (1.8-8.9); NEUTROPHILS % (AUTO) 67.4 % (43.0-81.0); PLATELET COUNT (AUTO) 210 K/uL (150-450); RED BLOOD CELL COUNT(AUTO) 3.91 MIL/uL (4.0-5.2); WHITE BLOOD COUNT (AUTO) 6.5 K/uL (4.3-11.0)
--- NOTE | 2021-11-29 08:19 | NUR ---
PT TAKEN TO CT VIA ZARA
--- NOTE | 2021-11-29 08:20 | NUR ---
Srikanth wong in [facility] - 11/29/21 at 0820 by JAMES PT LEFT TO CT AT THIS TIME
--- NOTE | 2021-11-29 09:22 | NUR ---
MOVE SHEET SUBMITTED.
[2021-11-29 09:24] LABS: ALANINE AMINOTRANSFERASE 141 U/L (12-78); ALBUMIN 3.5 g/dL (3.4-5.0); ALKALINE PHOSPHATASE 68 U/L (46-116); ASPARTATE AMINOTRANSFERASE 212 U/L (15-37); CALCIUM, SERUM 8.8 mg/dL (8.5-10.1); CARBON DIOXIDE 20 mmol/L (21-32); CHLORIDE 102 mmol/L (98-107); CREATININE 1.1 mg/dL (0.6-1.3); GLUCOSE 96 mg/dL (74-106); LIPASE 66 U/L (73-393); POTASSIUM 3.6 mmol/L (3.5-5.1); SODIUM SERUM 137 mmol/L (136-145); UREA NITROGEN, BLOOD 15 mg/dL (7-18)
[2021-11-29] MEDS ORDERED: MORPHINE SULFATE INJ 2 MG/ML DISP.SYRIN IV ONE ×2 (09:30→15:30)
[2021-11-29] MEDS ORDERED: ONDANSETRON HCL/PF - ER 4 MG/2 ML VIAL IV ONE (09:30)
--- NOTE | 2021-11-29 09:37 | NUR ---
SPOKE TO ELIE FARIA [phone] AND ASKED FOR SR MONET TO CALL DR. YE [phone]
[2021-11-29] MEDS ORDERED: FUROSEMIDE 40 MG/4 ML VIAL IV ONE (10:30)
[2021-11-29] MEDS ORDERED: SACU1TAB PO (10:36)
[2021-11-29] MEDS ORDERED: ASPI-1420 PO (10:36)
[2021-11-29] MEDS ORDERED: METO25TA20 PO (10:36)
[2021-11-29] MEDS ORDERED: FURO-145 PO (10:36)
[2021-11-29] MEDS ORDERED: HYDR25TA4 PO (10:36)
[2021-11-29] MEDS ORDERED: EMPA10TA PO (10:36)
[2021-11-29] MEDS ORDERED: MORPHINE SULFATE INJ 4 MG/ML DISP.SYRIN ONE ×2 (10:38→15:18)
[2021-11-29] MEDS ORDERED: ONDANSETRON HCL/PF 4 MG/2 ML VIAL ONE (10:38)
[2021-11-29] MEDS ORDERED: FUROSEMIDE 40 MG/4 ML VIAL ONE (10:38)
--- NOTE | 2021-11-29 11:08 | NUR ---
COVID TEST COLLECTED AND SENT
[2021-11-29] MEDS ORDERED: ASPIRIN 81 MG TAB.CHEW ONE (11:09)
[2021-11-29] MEDS ORDERED: CLONIDINE HCL 0.1 MG TABLET ONE ×2 (11:09→15:18)
[2021-11-29] MEDS ORDERED: CLONIDINE HCL 0.1 MG TABLET PO ONE ×2 (11:30→15:30)
[2021-11-29] MEDS ORDERED: ASPIRIN 81 MG TAB.CHEW PO ONE (11:30)
[2021-11-29] MEDS ORDERED: hydrALAZINE HCL IV 20 MG VIAL ONE (12:15)
[2021-11-29] MEDS ORDERED: hydrALAZINE HCL IV 20 MG VIAL IV ONE (12:30)
--- NOTE | 2021-11-29 12:37 | NUR ---
OSCAR [phone] ASKING FOR VS 166/118 HR98 96% RR18
--- NOTE | 2021-11-29 13:58 | NUR ---
PT ROOM 505 NUMBER FOR REPORT [phone]
--- NOTE | 2021-11-29 13:58 | NUR ---
AUTHORIZATION FOR TRANSPORTATION [id number]
--- NOTE | 2021-11-29 14:52 | NUR ---
REPORT GIVEN TO EM AT [facility] SAFETY ENGINEER FOR COURTNEY
--- NOTE | 2021-11-29 15:51 | NUR ---
TRANSPORTATION ARRIVED, REPORT GIVEN TO LETTERER, PT TRANSPORTED TO [facility] IN STABLE CONDITION.
[2021-11-29 15:55] VITALS: BP 151/92
== END 2021-11-29 16:17 | disposition short-term general hospital (02) ==
LOC: ER 07:50
DX: I11.0 Hypertensive heart disease with heart failure (principal); I50.9 Heart failure, unspecified; Z91.19 Patient's noncompliance with other medical treatment and regimen; Z20.822 Contact with and (suspected) exposure to COVID-19; F31.9 Bipolar disorder, unspecified; F17.200 Nicotine dependence, unspecified, uncomplicated; Z79.82 Long term (current) use of aspirin; Z79.899 Other long term (current) drug therapy; I44.7 Left bundle-branch block, unspecified; R77.8 Other specified abnormalities of plasma proteins; R10.9 Unspecified abdominal pain
CPT/HCPCS: 36415; 71045-TC; 80048-TC; 80076-TC; 83690-TC; 83880; 84484-TC; 85025-TC; C9803; J0360; J1940; J2270; J2405

== ENCOUNTER 2023-01-05 23:05 | Emergency (ER) | payer MEDICARE, OTHER ==
[~2023-01-05] VITALS: Ht 162.6 cm; Wt 81.6 kg
[~2023-01-05 23:05] MED LIST changes: +ASPI-1420 PO; -CEPH500C2 PO; +FURO-145 PO; -FURO40TA5 PO; +HYDR25TA4 PO; -PANT40TA2 PO; -VALS80TA2 PO
[2023-01-05 23:09] VITALS: BP 144/89; TEMP 98.4; O2SAT 98
[2023-01-05] MEDS ORDERED: CIPR2.5D14 RIGHTEYE (23:28)
== END 2023-01-06 03:28 | disposition home or self-care (01) ==
LOC: ER 23:30
DX: H10.9 Unspecified conjunctivitis (principal); I11.0 Hypertensive heart disease with heart failure; I50.9 Heart failure, unspecified; G89.29 Other chronic pain; F31.9 Bipolar disorder, unspecified; F17.200 Nicotine dependence, unspecified, uncomplicated; Z79.899 Other long term (current) drug therapy

== ENCOUNTER 2023-09-27 23:10 | Inpatient (IN) | payer MEDICARE, OTHER ==
[~2023-09-27] VITALS: Ht 154.9 cm; Wt 65.3 kg
[~2023-09-27 23:10] MED LIST changes: +CIPR2.5D14 RIGHTEYE
[2023-09-27] MEDS ORDERED: ONDANSETRON HCL/PF 4 MG/2 ML VIAL ONE (23:51)
[2023-09-27] MEDS ORDERED: MORPHINE SULFATE INJ 4 MG/ML DISP.SYRIN ONE (23:51)
[2023-09-27] MEDS: ONDANSETRON HCL/PF 4 MG/2 ML VIAL IVP ONE (23:54)
[2023-09-27] MEDS: MORPHINE SULFATE INJ 2 MG/ML DISP.SYRIN IV ONE (23:54)
[2023-09-27 23:57] LABS: BASOPHILS % (AUTO) 0.3 % (0.0-2.0); EOSINOPHILS # (AUTO) 0.1 K/uL (0.0-0.7); EOSINOPHILS % (AUTO) 2.1 % (0.0-6.0); HEMATOCRIT 28 % (33-45); HEMOGLOBIN 8.9 g/dL (11.5-14.8); LYMPHOCYTES # (AUTO) 1.4 K/uL (0.8-4.8); LYMPHOCYTES % (AUTO) 37.2 % (20.0-44.0); MEAN CORPUSCULAR HEMOGLOBIN 29 PG (26.0-33.0); MEAN CORPUSCULAR HGB CONC 32 g/dl (31.0-36.0); MEAN CORPUSCULAR VOLUME 92 fL (82-100); MONOCYTES # (AUTO) 0.1 K/uL (0.1-1.30); MONOCYTES % (AUTO) 3.7 % (2.0-12.0); NEUTROPHILS # (AUTO) 2.1 K/uL (1.8-8.9); NEUTROPHILS % (AUTO) 56.7 % (43.0-81.0); PLATELET COUNT (AUTO) 167 K/uL (150-450); RED BLOOD CELL COUNT(AUTO) 3.06 MIL/uL (4.0-5.2); WHITE BLOOD COUNT (AUTO) 3.7 K/uL (4.3-11.0)
[2023-09-28 00:10] VITALS: BP 122/76; TEMP 98.2; O2SAT 98
[2023-09-28 00:17] LABS: CALCIUM, SERUM 8.3 mg/dL (8.5-10.1); CARBON DIOXIDE 15 mmol/L (21-32); CHLORIDE 108 mmol/L (98-107); CREATININE 1.8 mg/dL (0.6-1.3); GLUCOSE 103 mg/dL (74-106); POTASSIUM 4.5 mmol/L (3.5-5.1); SODIUM SERUM 139 mmol/L (136-145); UREA NITROGEN, BLOOD 15 mg/dL (7-18)
[2023-09-28 00:28] LABS: NT-PRO BNP 18927 pg/mL (0-125)
[2023-09-28] MEDS ORDERED: HYDROCODONE/APAP 5/325MG TABLET ONE (02:39)
[2023-09-28] MEDS: HYDROCODONE/APAP 5/325MG TABLET PO ONE (02:50)
[2023-09-28] MEDS ORDERED: FUROSEMIDE 20 MG/2 ML VIAL ONE (02:53)
[2023-09-28] MEDS: FUROSEMIDE 20 MG/2 ML VIAL IV ONE (02:57)
[2023-09-28] MEDS ORDERED: MAG HYDROX/AL HYDROX/SIMETH 30 ML UDC PO PRN (03:30)
[2023-09-28] MEDS ORDERED: ONDANSETRON HCL/PF 4 MG/2 ML VIAL IVP PRN (03:30)
[2023-09-28] MEDS ORDERED: ACETAMINOPHEN 325 MG TABLET PO PRN (03:30)
[2023-09-28 03:53] VITALS: BP 128/93; TEMP 98.1; O2SAT 97
[2023-09-28 07:30] VITALS: BP 135/86; TEMP 98.2; O2SAT 95
[2023-09-28] MEDS ORDERED: ALBU8.5H8 IH (08:19)
[2023-09-28] MEDS ORDERED: DOCU-141 PO (08:19)
[2023-09-28] MEDS ORDERED: FERR325T23 PO (08:19)
[2023-09-28] MEDS ORDERED: FOLI0.4T6 PO (08:19)
[2023-09-28] MEDS ORDERED: OXYC1TAB8 PO (08:19)
[2023-09-28 08:20] VITALS: BP 130/73; TEMP 98.2; O2SAT 97
[2023-09-28 10:18] LABS: ALBUMIN 3.6 g/dL (3.4-5.0); BILIRUBIN,TOTAL 0.4 mg/dL (0.2-1.0); CALCIUM, SERUM 8.4 mg/dL (8.5-10.1); CREATININE 1.8 mg/dL (0.6-1.3); POTASSIUM 4.4 mmol/L (3.5-5.1); TOTAL PROTEIN, SERUM 7.2 g/dL (6.4-8.2)
[2023-09-28] MEDS ORDERED: ALBUTEROL FS 2.5 MG/3 ML VIAL.NEB NEB PRN (10:30)
[2023-09-28] MEDS ORDERED: IPRATROPIUM NEB FS 0.5 MG/2.5 ML AMPUL.NEB NEB PRN (10:30)
[2023-09-28 10:32] LABS: THYROID STIMULATING HORMONE 1.47 uIU/mL (0.358-3.74)
[2023-09-28] MEDS: oxyCODONE/APAP (5/325 MG) 1 UDTAB TABLET PO PRN (12:35)
[2023-09-28] MEDS: ASPIRIN EC 81 MG TABLET.DR PO SCH (12:36)
[2023-09-28] MEDS: NIFEdipine XL (30MG) 30 MG TAB PO SCH (12:36)
[2023-09-28] MEDS: METOPROLOL TARTRATE 25 MG TABLET PO SCH (12:37)
[2023-09-28] MEDS: FUROSEMIDE 40 MG/4 ML VIAL IV SCH (12:44)
[2023-09-28 16:00] VITALS: BP 133/95; TEMP 98.6; O2SAT 92
[2023-09-28] MEDS ORDERED: FUROSEMIDE 20 MG/2 ML VIAL IV SCH (17:00)
[2023-09-28 17:01] LABS: APPEARANCE,URINE CLEAR (CLEAR); BILIRUBIN,URINE NEGATIVE (NEGATIVE); BLOOD, URINE NEGATIVE Ery/uL (NEGATIVE); COLOR,URINE YELLOW (YELLOW); KETONES,URINE NEGATIVE (NEGATIVE); LEUKOCYTE ESTERASE ,URINE NEGATIVE (NEGATIVE); NITRITE, URINE NEGATIVE (NEGATIVE); PH,URINE 5.5 (5.0-8.0); PROTEIN,URINE NEGATIVE (NEGATIVE); UGLUCOSE NEGATIVE (NEGATIVE); UROBILINOGEN,URINE 0.2 EU/dL (0.2)
[2023-09-28] MEDS: SACUBITRIL/VALSARTAN 1 EACH TABLET PO SCH (17:52)
[2023-09-29 04:10] VITALS: BP 117/63; TEMP 98.1; O2SAT 98
[2023-09-29 06:49] LABS: BASOPHILS % (AUTO) 0.3 % (0.0-2.0); EOSINOPHILS # (AUTO) 0.1 K/uL (0.0-0.7); EOSINOPHILS % (AUTO) 5.8 % (0.0-6.0); HEMATOCRIT 23 % (33-45); HEMOGLOBIN 7.7 g/dL (11.5-14.8); LYMPHOCYTES # (AUTO) 0.4 K/uL (0.8-4.8); LYMPHOCYTES % (AUTO) 18.5 % (20.0-44.0); MEAN CORPUSCULAR HEMOGLOBIN 29 PG (26.0-33.0); MEAN CORPUSCULAR HGB CONC 33 g/dl (31.0-36.0); MEAN CORPUSCULAR VOLUME 88 fL (82-100); MONOCYTES # (AUTO) 0.2 K/uL (0.1-1.30); MONOCYTES % (AUTO) 6.7 % (2.0-12.0); NEUTROPHILS # (AUTO) 1.7 K/uL (1.8-8.9); NEUTROPHILS % (AUTO) 68.7 % (43.0-81.0); PLATELET COUNT (AUTO) 148 K/uL (150-450); RED BLOOD CELL COUNT(AUTO) 2.67 MIL/uL (4.0-5.2); WHITE BLOOD COUNT (AUTO) 2.4 K/uL (4.3-11.0)
[2023-09-29 07:33] LABS: ALBUMIN 3.5 g/dL (3.4-5.0); BILIRUBIN,TOTAL 0.9 mg/dL (0.2-1.0); CALCIUM, SERUM 8.8 mg/dL (8.5-10.1); MAGNESIUM 1.4 mg/dL (1.8-2.4); PHOSPHORUS 3.4 mg/dL (2.5-4.9); POTASSIUM 4.3 mmol/L (3.5-5.1); TOTAL PROTEIN, SERUM 6.9 g/dL (6.4-8.2)
[2023-09-29 08:00] VITALS: BP 123/76; TEMP 98.4; O2SAT 98
[2023-09-29] MEDS: DOCUSATE SODIUM 100 MG CAPSULE PO SCH (08:38)
[2023-09-29] MEDS: FERROUS SULFATE (325 MG) 325 MG/TAB TABLET PO SCH (08:38)
[2023-09-29] MEDS: FOLIC ACID 1 MG TABLET PO SCH (08:38)
[2023-09-29] MEDS: MAGNESIUM OXIDE 400 MG TABLET PO ONE (10:18)
[2023-09-29] MEDS: MAGNESIUM HYDROXIDE 30 ML UDC PO PRN (11:52)
[2023-09-29 12:00] VITALS: BP 112/67; TEMP 98.2; O2SAT 98
[2023-09-29 20:00] VITALS: BP_SYST 117; BP_DIAS 71; BP_DIAS 77; TEMP 98.1; O2SAT 97
[2023-09-30] VITALS (7 sets, daily range): BP systolic 107–114; BP diastolic 68–71; TEMP 98.1–99.4; O2SAT 96–98
[2023-09-30 06:43] LABS: BASOPHILS % (AUTO) 0.5 % (0.0-2.0); EOSINOPHILS # (AUTO) 0.2 K/uL (0.0-0.7); EOSINOPHILS % (AUTO) 5.9 % (0.0-6.0); HEMATOCRIT 24 % (33-45); LYMPHOCYTES # (AUTO) 0.5 K/uL (0.8-4.8); LYMPHOCYTES % (AUTO) 17.9 % (20.0-44.0); MEAN CORPUSCULAR HEMOGLOBIN 30 PG (26.0-33.0); MEAN CORPUSCULAR HGB CONC 33 g/dl (31.0-36.0); MEAN CORPUSCULAR VOLUME 89 fL (82-100); MONOCYTES # (AUTO) 0.2 K/uL (0.1-1.30); MONOCYTES % (AUTO) 6.8 % (2.0-12.0); NEUTROPHILS # (AUTO) 1.8 K/uL (1.8-8.9); NEUTROPHILS % (AUTO) 68.9 % (43.0-81.0); PLATELET COUNT (AUTO) 157 K/uL (150-450); RED CELL DISTRIBUTION WIDTH 19.4 % (11.5-15.0); WHITE BLOOD COUNT (AUTO) 2.7 K/uL (4.3-11.0)
[2023-09-30 07:17] LABS: CALCIUM, SERUM 8.7 mg/dL (8.5-10.1); POTASSIUM 4.9 mmol/L (3.5-5.1)
[2023-09-30 07:18] LABS: MAGNESIUM 1.7 mg/dL (1.8-2.4); PHOSPHORUS 3.1 mg/dL (2.5-4.9)
[2023-09-30] MEDS: MAGNESIUM OXIDE 400 MG TABLET PO ONE (10:06)
[2023-09-30] MEDS ORDERED: OXYC-128 PO (11:29)
[2023-09-30] MEDS ORDERED: ONDA4TAB5 PO (11:29)
== END 2023-09-30 17:47 | disposition home or self-care (01) | DRG 291 ==
LOC: ER 23:12 → TELE 09-28 03:08
PROVIDERS: ADMIT Nurse Practitioner Acute Care; ATTEND Nurse Practitioner Acute Care
DX: I13.0 Hypertensive heart and chronic kidney disease with heart failure and stage 1 through stage 4 chronic kidney disease, or unspecified chronic kidney disease (principal); I50.23 Acute on chronic systolic (congestive) heart failure; N17.9 Acute kidney failure, unspecified; E87.20 Acidosis, unspecified; B34.9 Viral infection, unspecified; I48.91 Unspecified atrial fibrillation; G89.4 Chronic pain syndrome; I25.10 Atherosclerotic heart disease of native coronary artery without angina pectoris; Z85.42 Personal history of malignant neoplasm of other parts of uterus; Z97.0 Presence of artificial eye; J44.9 Chronic obstructive pulmonary disease, unspecified; F17.210 Nicotine dependence, cigarettes, uncomplicated; H54.62 Unqualified visual loss, left eye, normal vision right eye; Z79.84 Long term (current) use of oral hypoglycemic drugs; N25.0 Renal osteodystrophy; Z79.82 Long term (current) use of aspirin; N18.9 Chronic kidney disease, unspecified; I25.2 Old myocardial infarction; I42.8 Other cardiomyopathies
CPT/HCPCS: 36415; 71045-TC; 80048-TC; 80053-TC; 80061-TC; 82728-TC; 83540-TC; 83735-TC; 83880; 84100-TC; 84439-TC; 84443-TC; 84484-TC; 85025-TC; 93307-TC; G0378; J1940; J2270; J2405

== ENCOUNTER 2023-11-13 23:34 | Emergency (ER) | payer MEDICARE, OTHER ==
[~2023-11-13] VITALS: Ht 172.7 cm; Wt 74.8 kg
[~2023-11-13 23:34] MED LIST changes: +ALBU8.5H8 IH; -CIPR2.5D14 RIGHTEYE; +DOCU-141 PO; -EMPA10TA PO; +FERR325T23 PO; +FOLI0.4T6 PO; -HYDR25TA4 PO; +ONDA4TAB5 PO; +OXYC-128 PO; +OXYC1TAB8 PO
[2023-11-13 23:39] VITALS: TEMP 97.8
[2023-11-13] MEDS ORDERED: LEVETIRACETAM SOL (5 ML) 100 MG/ML UDC ONE (23:58)
[2023-11-13] MEDS ORDERED: LEVETIRACETAM (500MG) 500 MG/5 ML VIAL IV ONE (23:59)
[2023-11-14] MEDS ORDERED: LEVETIRACETAM (500MG) 500 MG/5 ML VIAL IV ONE (00:03)
[2023-11-14] MEDS: LEVETIRACETAM (500MG) 1,000 MG in IV NS 0.9% 90 ML IV SCH (00:11)
[2023-11-14 00:14] LABS: BASOPHILS % (AUTO) 0.6 % (0.0-2.0); EOSINOPHILS # (AUTO) 0.1 K/uL (0.0-0.7); EOSINOPHILS % (AUTO) 1.5 % (0.0-6.0); HEMATOCRIT 30 % (33-45); HEMOGLOBIN 9.6 g/dL (11.5-14.8); LYMPHOCYTES # (AUTO) 0.7 K/uL (0.8-4.8); LYMPHOCYTES % (AUTO) 17.9 % (20.0-44.0); MEAN CORPUSCULAR HEMOGLOBIN 32 PG (26.0-33.0); MEAN CORPUSCULAR HGB CONC 32 g/dl (31.0-36.0); MEAN CORPUSCULAR VOLUME 98 fL (82-100); MONOCYTES # (AUTO) 0.3 K/uL (0.1-1.30); MONOCYTES % (AUTO) 8.3 % (2.0-12.0); NEUTROPHILS # (AUTO) 2.7 K/uL (1.8-8.9); NEUTROPHILS % (AUTO) 71.7 % (43.0-81.0); PLATELET COUNT (AUTO) 191 K/uL (150-450); RED BLOOD CELL COUNT(AUTO) 3.03 MIL/uL (4.0-5.2); RED CELL DISTRIBUTION WIDTH 21.6 % (11.5-15.0); WHITE BLOOD COUNT (AUTO) 3.7 K/uL (4.3-11.0)
[2023-11-14 00:22] LABS: CALCIUM, SERUM 9.1 mg/dL (8.5-10.1); CARBON DIOXIDE 22 mmol/L (21-32); CHLORIDE 95 mmol/L (98-107); CREATININE 2.4 mg/dL (0.6-1.3); GLUCOSE 125 mg/dL (74-106); POTASSIUM 3.3 mmol/L (3.5-5.1); SODIUM SERUM 135 mmol/L (136-145); UREA NITROGEN, BLOOD 36 mg/dL (7-18)
[2023-11-14 00:34] LABS: ALANINE AMINOTRANSFERASE 24 U/L (12-78); ALBUMIN 4.1 g/dL (3.4-5.0); ALCOHOL, BLOOD < 3 mg/dL (0-10); ALKALINE PHOSPHATASE 56 U/L (46-116); ASPARTATE AMINOTRANSFERASE 57 U/L (15-37); BILIRUBIN,TOTAL 4.2 mg/dL (0.2-1.0); NT-PRO BNP > 25000 pg/mL (0-125); TOTAL PROTEIN, SERUM 8.2 g/dL (6.4-8.2)
[2023-11-14 01:52] LABS: APPEARANCE,URINE CLEAR (CLEAR); BILIRUBIN,URINE 1+ (NEGATIVE); BLOOD, URINE TRACE-INTA Ery/uL (NEGATIVE); COLOR,URINE DARK YELLOW (YELLOW); KETONES,URINE NEGATIVE (NEGATIVE); LEUKOCYTE ESTERASE ,URINE NEGATIVE (NEGATIVE); NITRITE, URINE NEGATIVE (NEGATIVE); PROTEIN,URINE 2+ mg/dl (NEGATIVE); UGLUCOSE NEGATIVE (NEGATIVE)
[2023-11-14 02:02] LABS: ADD URINE CULTURE NO; AMPHETAMINE, URINE NEGATIVE (NEGATIVE); BACTERIA,URINE Rare /HPF (None Seen); BARBITURATE, URINE NEGATIVE (NEGATIVE); BENZODIAZEPINE, URINE NEGATIVE (NEGATIVE); CANNABINOID, URINE NEGATIVE (NEGATIVE); COCCAINE, URINE NEGATIVE (NEGATIVE); OPIATE, URINE NEGATIVE (NEGATIVE); PHENCYCLIDINE SCREEN,URINE NEGATIVE (NEGATIVE); SQUAMOUS EPITHELIAL CELL,UR Few /HPF (None Seen)
[2023-11-14 06:00] VITALS: BP 131/101; O2SAT 94
[2023-11-19] MEDS ORDERED: LACT10SO58 PO (10:04)
[2023-11-19] MEDS ORDERED: PRED20TA PO (10:04)
== END 2023-11-14 08:31 ==
LOC: ER 23:36
DX: S06.5X0A Traumatic subdural hemorrhage without loss of consciousness, initial encounter (principal); R56.9 Unspecified convulsions; I11.0 Hypertensive heart disease with heart failure; I50.9 Heart failure, unspecified; I48.91 Unspecified atrial fibrillation; I25.2 Old myocardial infarction; J44.9 Chronic obstructive pulmonary disease, unspecified; G89.29 Other chronic pain; M54.9 Dorsalgia, unspecified; F31.9 Bipolar disorder, unspecified; F17.200 Nicotine dependence, unspecified, uncomplicated; H54.7 Unspecified visual loss; Z88.8 Allergy status to other drugs, medicaments and biological substances; W06.XXXA Fall from bed, initial encounter; Y93.89 Activity, other specified; Y92.89 Other specified places as the place of occurrence of the external cause; Y99.8 Other external cause status
CPT/HCPCS: 99291; 70450; 93005; 71045; 36415; 80307; 96365; J7030; J1953; 80053-TC; 81001; 83880; 84484-TC; 85025-TC; G0480

== ENCOUNTER 2023-11-17 03:26 | Inpatient (IN) | payer MEDICARE, OTHER ==
[~2023-11-17] VITALS: Ht 154.9 cm; Wt 62.1 kg
[2023-11-17] MEDS ORDERED: methylPREDNISolone SOD SUCC 125 MG/2ML VIAL ONE (03:40)
[2023-11-17] MEDS: methylPREDNISolone SOD SUCC 125 MG/2ML VIAL IV ONE (03:58)
[2023-11-17 04:03] LABS: BASOPHILS % (AUTO) 0.5 % (0.0-2.0); EOSINOPHILS % (AUTO) 0.8 % (0.0-6.0); HEMATOCRIT 30 % (33-45); HEMOGLOBIN 9.3 g/dL (11.5-14.8); LYMPHOCYTES # (AUTO) 0.5 K/uL (0.8-4.8); LYMPHOCYTES % (AUTO) 11.5 % (20.0-44.0); MEAN CORPUSCULAR HEMOGLOBIN 31 PG (26.0-33.0); MEAN CORPUSCULAR HGB CONC 32 g/dl (31.0-36.0); MEAN CORPUSCULAR VOLUME 98 fL (82-100); MONOCYTES # (AUTO) 0.3 K/uL (0.1-1.30); MONOCYTES % (AUTO) 6.8 % (2.0-12.0); NEUTROPHILS # (AUTO) 3.7 K/uL (1.8-8.9); NEUTROPHILS % (AUTO) 80.4 % (43.0-81.0); PLATELET COUNT (AUTO) 164 K/uL (150-450); RED BLOOD CELL COUNT(AUTO) 3.02 MIL/uL (4.0-5.2); RED CELL DISTRIBUTION WIDTH 21.1 % (11.5-15.0); WHITE BLOOD COUNT (AUTO) 4.6 K/uL (4.3-11.0)
[2023-11-17 04:08] LABS: CALCIUM, SERUM 8.7 mg/dL (8.5-10.1); CARBON DIOXIDE 24 mmol/L (21-32); CHLORIDE 99 mmol/L (98-107); CREATININE 1.7 mg/dL (0.6-1.3); GLUCOSE 107 mg/dL (74-106); POTASSIUM 4.7 mmol/L (3.5-5.1); SODIUM SERUM 133 mmol/L (136-145); UREA NITROGEN, BLOOD 31 mg/dL (7-18)
[2023-11-17 04:19] LABS: INR 1.29 (0.91-1.10); PARTIAL THROMBOPLASTIN TIME 25.8 SEC (24.3-34.3); PROTHROMBIN TIME 13.4 SECS (9.2-11.1)
[2023-11-17 04:31] LABS: ALANINE AMINOTRANSFERASE 22 U/L (12-78); ALBUMIN 3.6 g/dL (3.4-5.0); ALKALINE PHOSPHATASE 46 U/L (46-116); ASPARTATE AMINOTRANSFERASE 42 U/L (15-37); BILIRUBIN,TOTAL 2.9 mg/dL (0.2-1.0); NT-PRO BNP 14344 pg/mL (0-125); TOTAL PROTEIN, SERUM 7.5 g/dL (6.4-8.2)
[2023-11-17] MEDS ORDERED: Z GUARD REMEDY 4 OZ OINT TP PRN (06:00)
[2023-11-17] MEDS ORDERED: NITROGLYCERIN 0.4 MG/TAB BOTTLE SL PRN (06:00)
[2023-11-17 07:02] LABS: BASOPHILS % (AUTO) 0.1 % (0.0-2.0); EOSINOPHILS % (AUTO) 0.3 % (0.0-6.0); HEMATOCRIT 29 % (33-45); HEMOGLOBIN 9.4 g/dL (11.5-14.8); LYMPHOCYTES # (AUTO) 0.3 K/uL (0.8-4.8); LYMPHOCYTES % (AUTO) 6.7 % (20.0-44.0); MEAN CORPUSCULAR HEMOGLOBIN 31 PG (26.0-33.0); MEAN CORPUSCULAR HGB CONC 33 g/dl (31.0-36.0); MEAN CORPUSCULAR VOLUME 97 fL (82-100); MONOCYTES # (AUTO) 0.1 K/uL (0.1-1.30); MONOCYTES % (AUTO) 2.7 % (2.0-12.0); NEUTROPHILS % (AUTO) 90.2 % (43.0-81.0); PLATELET COUNT (AUTO) 152 K/uL (150-450); RED CELL DISTRIBUTION WIDTH 21.1 % (11.5-15.0); WHITE BLOOD COUNT (AUTO) 4.4 K/uL (4.3-11.0)
[2023-11-17] MEDS ORDERED: LEVE500T20 PO (08:13)
[2023-11-17] MEDS ORDERED: PANT40TA49 PO (08:13)
[2023-11-17] MEDS ORDERED: METO-357 PO (08:13)
[2023-11-17] MEDS ORDERED: RIFA550T PO (08:13)
[2023-11-17 08:14] VITALS: O2SAT 95
[2023-11-17 08:38] LABS: ALANINE AMINOTRANSFERASE 21 U/L (12-78); ALBUMIN 3.7 g/dL (3.4-5.0); ASPARTATE AMINOTRANSFERASE 33 U/L (15-37); BILIRUBIN,DIRECT 2.2 mg/dL (0.0-0.2); CALCIUM, SERUM 8.9 mg/dL (8.5-10.1); CARBON DIOXIDE 23 mmol/L (21-32); CHLORIDE 99 mmol/L (98-107); CREATININE 1.8 mg/dL (0.6-1.3); GLUCOSE 112 mg/dL (74-106); MAGNESIUM 1.2 mg/dL (1.8-2.4); PHOSPHORUS 2.8 mg/dL (2.5-4.9); POTASSIUM 4.3 mmol/L (3.5-5.1); SODIUM SERUM 134 mmol/L (136-145); UREA NITROGEN, BLOOD 31 mg/dL (7-18)
[2023-11-17] MEDS: FUROSEMIDE 20 MG/2 ML VIAL IV SCH (10:07)
[2023-11-17] MEDS: PANTOPRAZOLE 40 MG VIAL IV SCH (10:07)
[2023-11-17 10:30] LABS: ALKALINE PHOSPHATASE 44 U/L (46-116); BILIRUBIN,TOTAL 2.9 mg/dL (0.2-1.0); TOTAL PROTEIN, SERUM 7.5 g/dL (6.4-8.2)
[2023-11-17] MEDS ORDERED: ALBUTEROL FS 2.5 MG/3 ML VIAL.NEB NEB PRN (13:30)
[2023-11-17] MEDS: methylPREDNISolone SOD SUCC 40 MG/ML VIAL IV SCH ×2 (13:34→14:47)
[2023-11-17] MEDS: Magnesium 1GM/D5W 100ML PREMIX 100 ML IV SCH (13:34)
[2023-11-17] MEDS: MORPHINE SULFATE INJ 4 MG/ML DISP.SYRIN IV PRN (13:35)
[2023-11-17] MEDS: ENOXAPARIN SODIUM 30 MG/0.3 ML DISP.SYRIN SQ SCH (14:30)
[2023-11-17 16:00] VITALS: BP 130/78; TEMP 98.4; O2SAT 98
[2023-11-17] MEDS: SACUBITRIL/VALSARTAN 24/26MG TABLET PO SCH (16:40)
[2023-11-17] MEDS: RIFAXIMIN 550 MG TABLET PO SCH (16:41)
[2023-11-17] MEDS: LEVETIRACETAM (250 MG) 250 MG TABLET PO SCH (16:41)
[2023-11-17] MEDS ORDERED: DOCUSATE SODIUM 250 MG CAPSULE PO SCH (17:00)
[2023-11-17 20:51] VITALS: BP 119/82; TEMP 98.1; O2SAT 96
[2023-11-18 00:20] VITALS: BP 128/87; TEMP 97.9; O2SAT 98
[2023-11-18 04:29] VITALS: BP 128/87; TEMP 97.9; O2SAT 98
[2023-11-18 06:28] LABS: HEMATOCRIT 28 % (33-45); HEMOGLOBIN 9.1 g/dL (11.5-14.8); LYMPHOCYTES # (AUTO) 0.4 K/uL (0.8-4.8); LYMPHOCYTES % (AUTO) 7.7 % (20.0-44.0); MEAN CORPUSCULAR HEMOGLOBIN 31 PG (26.0-33.0); MEAN CORPUSCULAR HGB CONC 33 g/dl (31.0-36.0); MEAN CORPUSCULAR VOLUME 97 fL (82-100); MONOCYTES # (AUTO) 0.2 K/uL (0.1-1.30); MONOCYTES % (AUTO) 4.3 % (2.0-12.0); NEUTROPHILS # (AUTO) 4.4 K/uL (1.8-8.9); PLATELET COUNT (AUTO) 148 K/uL (150-450); RED BLOOD CELL COUNT(AUTO) 2.89 MIL/uL (4.0-5.2); RED CELL DISTRIBUTION WIDTH 20.5 % (11.5-15.0)
[2023-11-18 07:04] LABS: ALBUMIN 3.8 g/dL (3.4-5.0); BILIRUBIN,TOTAL 2.7 mg/dL (0.2-1.0); CALCIUM, SERUM 9.3 mg/dL (8.5-10.1); CREATININE 1.9 mg/dL (0.6-1.3); MAGNESIUM 1.6 mg/dL (1.8-2.4); PHOSPHORUS 3.4 mg/dL (2.5-4.9); POTASSIUM 4.4 mmol/L (3.5-5.1); TOTAL PROTEIN, SERUM 7.7 g/dL (6.4-8.2)
[2023-11-18 07:30] VITALS: BP 134/90; TEMP 97.7; TEMP 97.9; O2SAT 98
[2023-11-18] MEDS: METOPROLOL SUCCINATE 50 MG TAB.SR.24H PO SCH (08:29)
[2023-11-18] MEDS: PANTOPRAZOLE 40 MG TABLET.DR PO SCH (08:30)
[2023-11-18] MEDS: DOCUSATE SODIUM 100 MG CAPSULE PO SCH (09:20)
[2023-11-18] MEDS: NIFEdipine XL (30MG) 30 MG TAB PO SCH (09:21)
[2023-11-18] MEDS: FERROUS SULFATE (325 MG) 325 MG/TAB TABLET PO SCH (09:21)
[2023-11-18] MEDS: FOLIC ACID 1 MG TABLET PO SCH (09:31)
[2023-11-18] MEDS: MAGNESIUM OXIDE 400 MG TABLET PO ONE (10:33)
[2023-11-18 16:08] VITALS: BP 130/84; TEMP 97.6; O2SAT 95
[2023-11-18 20:00] VITALS: BP 134/88; TEMP 97.5; O2SAT 97
[2023-11-19] VITALS: BP 123/86; TEMP 97.5; O2SAT 96
[2023-11-19] MEDS ORDERED: MAGNESIUM HYDROXIDE 30 ML UDC PO PRN (03:00)
[2023-11-19] MEDS: BISACODYL (5 MG) 5 MG TABLET.DR PO PRN (03:23)
[2023-11-19 04:00] VITALS: BP 131/87; TEMP 97.7; O2SAT 97
[2023-11-19] MEDS: ONDANSETRON HCL/PF 4 MG/2 ML VIAL IVP PRN (04:48)
[2023-11-19 06:32] LABS: CALCIUM, SERUM 9.5 mg/dL (8.5-10.1); CREATININE 1.8 mg/dL (0.6-1.3); MAGNESIUM 1.8 mg/dL (1.8-2.4); POTASSIUM 4.2 mmol/L (3.5-5.1)
[2023-11-19 07:00] VITALS: BP_SYST 113; BP_SYST 119; BP_DIAS 73; BP_DIAS 85; TEMP 97.3; TEMP 97.5; O2SAT 91; O2SAT 97
[2023-11-19 08:07] LABS: PTH, INTACT 120 pg/mL (15-65)
[2023-11-19 08:57] VITALS: BP 119/85
[2023-11-19] MEDS: NA PHOS,M-B/NA PHOS,DI-BA 1 EA ENEMA RC PRN (09:41)
[2023-11-19] MEDS ORDERED: NA PHOS,M-B/NA PHOS,DI-BA 1 EA ENEMA RC SCH (10:00)
[2023-11-19] MEDS ORDERED: LACT10SO58 PO (10:04)
[2023-11-19] MEDS ORDERED: PRED20TA PO (10:04)
[2023-11-19] MEDS: LACTULOSE 10 G/15 ML UDC (PYXIS) PO SCH (10:30)
[2023-11-21 11:03] LABS: *SPE A/G RATIO 1.3 (0.7-1.7); *SPE ALBUMIN 4.2 g/dL (2.9-4.4); *SPE ALPHA-1-GLOBULIN 0.2 g/dL (0.0-0.4); *SPE ALPHA-2-GLOBULIN 0.5 g/dL (0.4-1.0); *SPE BETA GLOBULIN 0.8 g/dL (0.7-1.3); *SPE GLOBULIN, TOTAL 3.2 g/dL (2.2-3.9); *SPE M-SPIKE Not Observed g/dL (Not Observed); *SPE PROTEIN TOTAL 7.4 g/dL (6.0-8.5); *SPEGAMMA GLOBULIN 1.6 g/dL (0.4-1.8)
== END 2023-11-19 14:52 | disposition home or self-care (01) | DRG 194 ==
LOC: ER 03:29 → TELE 07:55
PROVIDERS: ADMIT Internal Medicine; ATTEND Internal Medicine
DX: I13.0 Hypertensive heart and chronic kidney disease with heart failure and stage 1 through stage 4 chronic kidney disease, or unspecified chronic kidney disease (principal); J96.01 Acute respiratory failure with hypoxia; N17.0 Acute kidney failure with tubular necrosis; I27.20 Pulmonary hypertension, unspecified; K76.6 Portal hypertension; E87.1 Hypo-osmolality and hyponatremia; I42.9 Cardiomyopathy, unspecified; N18.4 Chronic kidney disease, stage 4 (severe); J44.1 Chronic obstructive pulmonary disease with (acute) exacerbation; I50.23 Acute on chronic systolic (congestive) heart failure; I48.91 Unspecified atrial fibrillation; D64.9 Anemia, unspecified; E78.5 Hyperlipidemia, unspecified; E83.42 Hypomagnesemia; F17.200 Nicotine dependence, unspecified, uncomplicated; F31.9 Bipolar disorder, unspecified; G89.4 Chronic pain syndrome; I25.10 Atherosclerotic heart disease of native coronary artery without angina pectoris; I25.2 Old myocardial infarction; Z90.01 Acquired absence of eye; Z97.0 Presence of artificial eye; F17.210 Nicotine dependence, cigarettes, uncomplicated; K74.60 Unspecified cirrhosis of liver; I48.0 Paroxysmal atrial fibrillation; M89.8X9 Other specified disorders of bone, unspecified site; R18.8 Other ascites; R74.01 Elevation of levels of liver transaminase levels; F19.10 Other psychoactive substance abuse, uncomplicated; F11.20 Opioid dependence, uncomplicated; I34.0 Nonrheumatic mitral (valve) insufficiency
CPT/HCPCS: 36415; 71045-TC; 76705-TC; 76770-TC; 80048-TC; 80053-TC; 80076-TC; 81001; 82550-TC; 83735-TC; 83880; 83970; 84100-TC; 84155; 84165; 84443-TC; 84484-TC; 85025-TC; 85730-TC; 87081-TC; A4223; G0378; G0480; J1650; J1940; J2270; J2405; J2470; J2919; J3475; J7040

== ENCOUNTER 2023-12-13 20:46 | Inpatient (IN) | payer MEDICARE, OTHER ==
[~2023-12-13] VITALS: Ht 154.9 cm; Wt 60.3 kg
[~2023-12-13 20:46] MED LIST changes: -ASPI-1420 PO; +LACT10SO58 PO; +LEVE500T20 PO; +METO-357 PO; -METO25TA20 PO; -ONDA4TAB5 PO; +PANT40TA49 PO; +PRED20TA PO; +RIFA550T PO
[2023-12-13 21:30] LABS: BASOPHILS % (AUTO) 0.4 % (0.0-2.0); EOSINOPHILS % (AUTO) 1.2 % (0.0-6.0); HEMATOCRIT 28 % (33-45); HEMOGLOBIN 9.3 g/dL (11.5-14.8); LYMPHOCYTES # (AUTO) 0.3 K/uL (0.8-4.8); LYMPHOCYTES % (AUTO) 9.8 % (20.0-44.0); MEAN CORPUSCULAR HEMOGLOBIN 33 PG (26.0-33.0); MEAN CORPUSCULAR HGB CONC 33 g/dl (31.0-36.0); MEAN CORPUSCULAR VOLUME 99 fL (82-100); MONOCYTES # (AUTO) 0.1 K/uL (0.1-1.30); MONOCYTES % (AUTO) 3.7 % (2.0-12.0); NEUTROPHILS % (AUTO) 84.9 % (43.0-81.0); PLATELET COUNT (AUTO) 138 K/uL (150-450); RED BLOOD CELL COUNT(AUTO) 2.87 MIL/uL (4.0-5.2); RED CELL DISTRIBUTION WIDTH 19.2 % (11.5-15.0); WHITE BLOOD COUNT (AUTO) 3.5 K/uL (4.3-11.0)
[2023-12-13] MEDS ORDERED: IV NS 0.9% 1,000 ML BAG IV ONE (21:30)
[2023-12-13] MEDS ORDERED: ONDANSETRON HCL/PF 4 MG/2 ML VIAL ONE (21:34)
[2023-12-13 21:39] LABS: CALCIUM, SERUM 8.7 mg/dL (8.5-10.1); CREATININE 1.3 mg/dL (0.6-1.3); POTASSIUM 3.5 mmol/L (3.5-5.1)
[2023-12-13 21:45] LABS: INR 1.31 (0.91-1.10); PARTIAL THROMBOPLASTIN TIME 23.3 SEC (24.3-34.3); PROTHROMBIN TIME 13.3 SECS (9.2-11.1)
[2023-12-13 21:46] LABS: ALBUMIN 3.8 g/dL (3.4-5.0); BILIRUBIN,DIRECT 1.3 mg/dL (0.0-0.2); BILIRUBIN,TOTAL 1.7 mg/dL (0.2-1.0); TOTAL PROTEIN, SERUM 7.5 g/dL (6.4-8.2)
[2023-12-13] MEDS: ONDANSETRON HCL/PF 4 MG/2 ML VIAL IVP ONE (21:53)
[2023-12-13] MEDS ORDERED: PIPERACI/TAZO 3.375GM/D5W 50ML PB IV ONE (21:54)
[2023-12-13] MEDS: PIPERACILLIN /TAZOBACTAM 3.375 G in IV D5W 50 ML IV ONE (22:03)
[2023-12-13] MEDS ORDERED: HYDROMORPHONE 1 MG/1 ML DISP.SYRIN ONE (22:04)
[2023-12-13] MEDS: HYDROMORPHONE 1 MG/1 ML DISP.SYRIN IV ONE (22:19)
[2023-12-13] MEDS ORDERED: ONDANSETRON HCL/PF 4 MG/2 ML VIAL IVP PRN (22:30)
[2023-12-13] MEDS ORDERED: Z GUARD REMEDY 4 OZ OINT TP PRN (22:30)
[2023-12-13 22:46] LABS: AMPHETAMINE, URINE POSITIVE (NEGATIVE); BARBITURATE, URINE NEGATIVE (NEGATIVE); BENZODIAZEPINE, URINE NEGATIVE (NEGATIVE); CANNABINOID, URINE NEGATIVE (NEGATIVE); COCCAINE, URINE NEGATIVE (NEGATIVE); OPIATE, URINE NEGATIVE (NEGATIVE); PHENCYCLIDINE SCREEN,URINE NEGATIVE (NEGATIVE)
[2023-12-13 22:49] LABS: APPEARANCE,URINE CLEAR (CLEAR); BILIRUBIN,URINE NEGATIVE (NEGATIVE); BLOOD, URINE 1+ Ery/uL (NEGATIVE); COLOR,URINE YELLOW (YELLOW); KETONES,URINE NEGATIVE (NEGATIVE); LEUKOCYTE ESTERASE ,URINE 1+ (NEGATIVE); NITRITE, URINE NEGATIVE (NEGATIVE); PROTEIN,URINE NEGATIVE (NEGATIVE); UGLUCOSE NEGATIVE (NEGATIVE); UROBILINOGEN,URINE 0.2 EU/dL (0.2)
[2023-12-13 23:06] LABS: ADD URINE CULTURE YES; BACTERIA,URINE Rare /HPF (None Seen)
[2023-12-13 23:30] VITALS: BP 141/99; TEMP 97.9; O2SAT 93
[2023-12-13] MEDS: FUROSEMIDE 20 MG/2 ML VIAL IV SCH (23:52)
[2023-12-14] MEDS: MORPHINE SULFATE INJ 2 MG/ML DISP.SYRIN IV PRN (00:52)
[2023-12-14 04:00] VITALS: BP 147/100; TEMP 98.1; O2SAT 96
[2023-12-14] MEDS: PIPERACI/TAZO 3.375GM/D5W 50ML PB IV ONE (05:18)
[2023-12-14] MEDS: ZOSYN IVPB 3.375 G in IV D5W 50ml IV SCH (05:24)
[2023-12-14 06:25] LABS: EOSINOPHILS % (AUTO) 0.1 % (0.0-6.0); HEMOGLOBIN 9.1 g/dL (11.5-14.8); LYMPHOCYTES # (AUTO) 0.2 K/uL (0.8-4.8); NEUTROPHILS # (AUTO) 1.6 K/uL (1.8-8.9)
[2023-12-14 06:52] LABS: ALANINE AMINOTRANSFERASE 18 U/L (12-78); ALBUMIN 3.6 g/dL (3.4-5.0); ALKALINE PHOSPHATASE 67 U/L (46-116); ASPARTATE AMINOTRANSFERASE 37 U/L (15-37); BILIRUBIN,DIRECT 1.6 mg/dL (0.0-0.2); BILIRUBIN,TOTAL 2.2 mg/dL (0.2-1.0); CALCIUM, SERUM 8.5 mg/dL (8.5-10.1); CARBON DIOXIDE 16 mmol/L (21-32); CHLORIDE 104 mmol/L (98-107); CREATININE 1.5 mg/dL (0.6-1.3); GLUCOSE 146 mg/dL (74-106); LIPASE 54 U/L (16-77); MAGNESIUM 1.2 mg/dL (1.8-2.4); NT-PRO BNP > 25000 pg/mL (0-125); PHOSPHORUS 4.2 mg/dL (2.5-4.9); POTASSIUM 4.1 mmol/L (3.5-5.1); SODIUM SERUM 138 mmol/L (136-145); TOTAL PROTEIN, SERUM 7.5 g/dL (6.4-8.2); UREA NITROGEN, BLOOD 14 mg/dL (7-18)
[2023-12-14 06:53] LABS: HEMATOCRIT 28 % (33-45); LYMPHOCYTES % (AUTO) 13.2 % (20.0-44.0); MEAN CORPUSCULAR HEMOGLOBIN 32 PG (26.0-33.0); MEAN CORPUSCULAR HGB CONC 33 g/dl (31.0-36.0); MEAN CORPUSCULAR VOLUME 99 fL (82-100); MONOCYTES % (AUTO) 2.2 % (2.0-12.0); NEUTROPHILS % (AUTO) 84.5 % (43.0-81.0); PLATELET COUNT (AUTO) 106 K/uL (150-450); RED BLOOD CELL COUNT(AUTO) 2.81 MIL/uL (4.0-5.2); RED CELL DISTRIBUTION WIDTH 19.1 % (11.5-15.0)
[2023-12-14 08:00] VITALS: BP 144/106; TEMP 97.5; O2SAT 91
[2023-12-14 08:17] LABS: WHITE BLOOD COUNT (AUTO) 1.9 K/uL (4.3-11.0)
[2023-12-14] MEDS: PANTOPRAZOLE 40 MG VIAL IV SCH (08:21)
[2023-12-14] MEDS ORDERED: ASPI-1169 PO (08:42)
[2023-12-14] MEDS: PIPERACILLIN /TAZOBACTAM 3.375 G in IV D5W 100 ML IV SCH (09:23)
[2023-12-14] MEDS: MAGNESIUM OXIDE 400 MG TABLET PO ONE (10:54)
[2023-12-14 12:00] VITALS: BP 90/67; TEMP 97.7; O2SAT 89
[2023-12-14] MEDS ORDERED: ALBUTEROL SULFATE 8 GM HFA.AER.AD IH PRN (13:00)
[2023-12-14 13:29] LABS: LYMPHOCYTES % (MANUAL) 10 % (16-48); NEUTROPHILS % (MANUAL) 90 (42-76); PLATELET ESTIMATE DECREASED
[2023-12-14] MEDS ORDERED: ALBUTEROL FS 2.5 MG/3 ML VIAL.NEB NEB PRN (13:30)
[2023-12-14 13:45] LABS: ANISOCYTOSIS 1+
[2023-12-14 13:46] LABS: OVALOCYTES 1+
[2023-12-14] MEDS: LACTULOSE 20 G/30 ML UDC PO SCH (14:12)
[2023-12-14 16:00] VITALS: BP 119/93; O2SAT 92
[2023-12-14] MEDS: RIFAXIMIN 550 MG TABLET PO SCH (17:28)
[2023-12-14] MEDS: LEVETIRACETAM (250 MG) 250 MG TABLET PO SCH (17:28)
[2023-12-14] MEDS: SACUBITRIL/VALSARTAN 24/26MG TABLET PO SCH (17:30)
[2023-12-14 20:00] VITALS: BP 121/93; TEMP 97.5; O2SAT 91
[2023-12-15] VITALS: BP 127/86; TEMP 97.6; O2SAT 93
[2023-12-15 04:00] VITALS: BP 125/97; TEMP 98.2; O2SAT 93
[2023-12-15 05:00] VITALS: BP 125/97; TEMP 98.2; O2SAT 93
[2023-12-15 06:00] VITALS: BP 135/93; TEMP 97.3; O2SAT 97
[2023-12-15 08:52] LABS: CALCIUM, SERUM 8.1 mg/dL (8.5-10.1); CREATININE 1.8 mg/dL (0.6-1.3); MAGNESIUM 1.3 mg/dL (1.8-2.4); POTASSIUM 3.2 mmol/L (3.5-5.1)
[2023-12-15 08:56] LABS: BASOPHILS % (AUTO) 0.5 % (0.0-2.0); EOSINOPHILS % (AUTO) 2.1 % (0.0-6.0); HEMATOCRIT 27 % (33-45); LYMPHOCYTES # (AUTO) 0.5 K/uL (0.8-4.8); LYMPHOCYTES % (AUTO) 19.8 % (20.0-44.0); MEAN CORPUSCULAR HEMOGLOBIN 33 PG (26.0-33.0); MEAN CORPUSCULAR HGB CONC 34 g/dl (31.0-36.0); MEAN CORPUSCULAR VOLUME 99 fL (82-100); MONOCYTES # (AUTO) 0.2 K/uL (0.1-1.30); MONOCYTES % (AUTO) 10.4 % (2.0-12.0); NEUTROPHILS # (AUTO) 1.6 K/uL (1.8-8.9); NEUTROPHILS % (AUTO) 67.2 % (43.0-81.0); PLATELET COUNT (AUTO) 93 K/uL (150-450); RED CELL DISTRIBUTION WIDTH 19.4 % (11.5-15.0); WHITE BLOOD COUNT (AUTO) 2.4 K/uL (4.3-11.0)
[2023-12-15] MEDS: FERROUS SULFATE (325 MG) 325 MG/TAB TABLET PO SCH (09:12)
[2023-12-15] MEDS: DOCUSATE SODIUM 100 MG CAPSULE PO SCH (09:12)
[2023-12-15] MEDS: METOPROLOL SUCCINATE 50 MG TAB.SR.24H PO SCH (09:13)
[2023-12-15] MEDS: PANTOPRAZOLE 40 MG TABLET.DR PO SCH (09:13)
[2023-12-15] MEDS: NIFEdipine XL (30MG) 30 MG TAB PO SCH (09:13)
[2023-12-15] MEDS: FOLIC ACID 1 MG TABLET PO SCH (09:14)
[2023-12-15] MEDS: ASPIRIN 81 MG TAB.CHEW PO SCH (09:15)
[2023-12-15] MEDS: Magnesium 1GM/D5W 100ML PREMIX 100 ML IV SCH (10:18)
[2023-12-15] MEDS: POTASSIUM CHLORIDE 20 MEQ TAB.PRT.SR PO SCH (10:18)
[2023-12-15 10:29] LABS: EOSINOPHILS % (MANUAL) 4 % (0-4); LYMPHOCYTES % (MANUAL) 22 % (16-48); MONOCYTES % (MANUAL) 8 % (0-11.0); NEUTROPHILS % (MANUAL) 66 (42-76)
[2023-12-15 10:30] LABS: ANISOCYTOSIS 1+; PLATELET ESTIMATE DECREASED
[2023-12-15 10:31] LABS: OVALOCYTES 1+
[2023-12-15 20:00] VITALS: BP 101/71; TEMP 98.4; O2SAT 95
[2023-12-15] MEDS ORDERED: diphenhydrAMINE HCL ELIX 25 MG/10 ML UDC PO PRN (20:20)
[2023-12-15] MEDS: diphenhydrAMINE HCL ELIX 25 MG/10 ML UDC PO ONE (20:30)
[2023-12-16] VITALS (8 sets, daily range): BP systolic 97–119; BP diastolic 68–79; TEMP 98.1–98.2; O2SAT 95–100
[2023-12-16] MEDS: LORAZEPAM 1 MG TABLET PO ONE (01:10)
[2023-12-16 06:39] LABS: BASOPHILS % (AUTO) 0.5 % (0.0-2.0); EOSINOPHILS # (AUTO) 0.1 K/uL (0.0-0.7); EOSINOPHILS % (AUTO) 3.2 % (0.0-6.0); HEMATOCRIT 28 % (33-45); HEMOGLOBIN 9.4 g/dL (11.5-14.8); LYMPHOCYTES # (AUTO) 0.4 K/uL (0.8-4.8); LYMPHOCYTES % (AUTO) 12.2 % (20.0-44.0); MEAN CORPUSCULAR HEMOGLOBIN 33 PG (26.0-33.0); MEAN CORPUSCULAR HGB CONC 33 g/dl (31.0-36.0); MEAN CORPUSCULAR VOLUME 98 fL (82-100); MONOCYTES # (AUTO) 0.2 K/uL (0.1-1.30); MONOCYTES % (AUTO) 7.4 % (2.0-12.0); NEUTROPHILS # (AUTO) 2.3 K/uL (1.8-8.9); NEUTROPHILS % (AUTO) 76.7 % (43.0-81.0); PLATELET COUNT (AUTO) 109 K/uL (150-450); RED BLOOD CELL COUNT(AUTO) 2.89 MIL/uL (4.0-5.2); RED CELL DISTRIBUTION WIDTH 19.4 % (11.5-15.0)
[2023-12-16 06:52] LABS: APPEARANCE,URINE CLEAR (CLEAR); BILIRUBIN,URINE NEGATIVE (NEGATIVE); BLOOD, URINE TRACE-INTA Ery/uL (NEGATIVE); COLOR,URINE YELLOW (YELLOW); KETONES,URINE NEGATIVE (NEGATIVE); LEUKOCYTE ESTERASE ,URINE NEGATIVE (NEGATIVE); NITRITE, URINE NEGATIVE (NEGATIVE); PROTEIN,URINE NEGATIVE (NEGATIVE); UGLUCOSE NEGATIVE (NEGATIVE); UROBILINOGEN,URINE 0.2 EU/dL (0.2)
[2023-12-16 07:02] LABS: ADD URINE CULTURE NO; BACTERIA,URINE Rare /HPF (None Seen); WBC,URINE 0-2 /HPF (0-3)
[2023-12-16 07:24] LABS: ALBUMIN 3.3 g/dL (3.4-5.0); BILIRUBIN,TOTAL 2.3 mg/dL (0.2-1.0); CALCIUM, SERUM 8.4 mg/dL (8.5-10.1); CREATININE 1.8 mg/dL (0.6-1.3); MAGNESIUM 1.7 mg/dL (1.8-2.4); PHOSPHORUS 2.5 mg/dL (2.5-4.9); POTASSIUM 3.5 mmol/L (3.5-5.1); TOTAL PROTEIN, SERUM 6.7 g/dL (6.4-8.2)
[2023-12-16 07:26] LABS: CREATININE, URINE < 13.0 MG/DL (30.0-125.0); URINE SODIUM, RANDOM 59 mmol/l (40-220)
[2023-12-16] MEDS: Magnesium 1GM/D5W 100ML PREMIX 100 ML IV SCH (08:46)
[2023-12-16] MEDS: POTASSIUM CHLORIDE 20 MEQ TAB.PRT.SR PO SCH (08:47)
[2023-12-16 09:27] LABS: EOSINOPHIL,URINE None Seen
[2023-12-16] MEDS: diphenhydrAMINE HCL 50 MG/ML VIAL IV PRN (18:36)
[2023-12-16] MEDS: ALPRAZOLAM 0.25 MG TABLET PO ONE (19:59)
[2023-12-17 06:06] LABS: PTH, INTACT 75 pg/mL (15-65)
[2023-12-17 06:37] LABS: BASOPHILS % (AUTO) 0.2 % (0.0-2.0); EOSINOPHILS # (AUTO) 0.1 K/uL (0.0-0.7); EOSINOPHILS % (AUTO) 2.8 % (0.0-6.0); HEMATOCRIT 27 % (33-45); HEMOGLOBIN 9.2 g/dL (11.5-14.8); LYMPHOCYTES # (AUTO) 0.5 K/uL (0.8-4.8); LYMPHOCYTES % (AUTO) 11.8 % (20.0-44.0); MEAN CORPUSCULAR HEMOGLOBIN 33 PG (26.0-33.0); MEAN CORPUSCULAR HGB CONC 34 g/dl (31.0-36.0); MEAN CORPUSCULAR VOLUME 97 fL (82-100); MONOCYTES # (AUTO) 0.4 K/uL (0.1-1.30); NEUTROPHILS % (AUTO) 76.2 % (43.0-81.0); PLATELET COUNT (AUTO) 112 K/uL (150-450); RED BLOOD CELL COUNT(AUTO) 2.83 MIL/uL (4.0-5.2); RED CELL DISTRIBUTION WIDTH 19.3 % (11.5-15.0); WHITE BLOOD COUNT (AUTO) 3.9 K/uL (4.3-11.0)
[2023-12-17 07:23] LABS: ALBUMIN 2.9 g/dL (3.4-5.0); CALCIUM, SERUM 8.6 mg/dL (8.5-10.1); CREATININE 1.7 mg/dL (0.6-1.3); MAGNESIUM 1.9 mg/dL (1.8-2.4); PHOSPHORUS 2.9 mg/dL (2.5-4.9); POTASSIUM 3.9 mmol/L (3.5-5.1); TOTAL PROTEIN, SERUM 6.2 g/dL (6.4-8.2)
[2023-12-17 08:00] VITALS: BP 98/60; TEMP 98.4; O2SAT 95
[2023-12-17 20:00] VITALS: BP 104/69; TEMP 98.4; O2SAT 99
[2023-12-17] MEDS: ALPRAZOLAM 0.25 MG TABLET PO PRN (20:42)
[2023-12-18 07:00] VITALS: BP 99/70; TEMP 98.2; O2SAT 95
[2023-12-18 10:01] VITALS: BP 110/83
[2023-12-20 09:11] LABS: *SPE A/G RATIO 1.3 (0.7-1.7); *SPE ALBUMIN 3.6 g/dL (2.9-4.4); *SPE ALPHA-1-GLOBULIN 0.2 g/dL (0.0-0.4); *SPE ALPHA-2-GLOBULIN 0.5 g/dL (0.4-1.0); *SPE BETA GLOBULIN 0.7 g/dL (0.7-1.3); *SPE GLOBULIN, TOTAL 2.8 g/dL (2.2-3.9); *SPE M-SPIKE Not Observed g/dL (Not Observed); *SPE PROTEIN TOTAL 6.4 g/dL (6.0-8.5); *SPEGAMMA GLOBULIN 1.3 g/dL (0.4-1.8)
== END 2023-12-18 17:04 | disposition home or self-care (01) | DRG 371 ==
LOC: ER 20:54 → MED 22:37 → TELE 23:34 → MED 12-15 11:18
PROVIDERS: ADMIT Nurse Practitioner Family; ATTEND Nurse Practitioner Family
DX: A04.9 Bacterial intestinal infection, unspecified (principal); I50.23 Acute on chronic systolic (congestive) heart failure; K85.90 Acute pancreatitis without necrosis or infection, unspecified; N17.0 Acute kidney failure with tubular necrosis; I42.9 Cardiomyopathy, unspecified; R18.8 Other ascites; D61.818 Other pancytopenia; K80.10 Calculus of gallbladder with chronic cholecystitis without obstruction; Z90.01 Acquired absence of eye; H54.8 Legal blindness, as defined in USA; G89.4 Chronic pain syndrome; I25.2 Old myocardial infarction; Z85.43 Personal history of malignant neoplasm of ovary; Z88.6 Allergy status to analgesic agent; Z88.8 Allergy status to other drugs, medicaments and biological substances; Z99.81 Dependence on supplemental oxygen; J44.9 Chronic obstructive pulmonary disease, unspecified; K74.60 Unspecified cirrhosis of liver; Z87.828 Personal history of other (healed) physical injury and trauma; I48.91 Unspecified atrial fibrillation; K76.82 Hepatic encephalopathy; Z91.198 Patient's noncompliance with other medical treatment and regimen for other reason; D63.8 Anemia in other chronic diseases classified elsewhere; I11.0 Hypertensive heart disease with heart failure; I25.10 Atherosclerotic heart disease of native coronary artery without angina pectoris; K57.30 Diverticulosis of large intestine without perforation or abscess without bleeding; F15.90 Other stimulant use, unspecified, uncomplicated; M89.8X9 Other specified disorders of bone, unspecified site; Z82.3 Family history of stroke; Z82.49 Family history of ischemic heart disease and other diseases of the circulatory system; F10.10 Alcohol abuse, uncomplicated; Y90.2 Blood alcohol level of 40-59 mg/100 ml; Z79.899 Other long term (current) drug therapy; E83.42 Hypomagnesemia; F31.9 Bipolar disorder, unspecified; Z97.0 Presence of artificial eye; I44.7 Left bundle-branch block, unspecified; E66.3 Overweight; F19.10 Other psychoactive substance abuse, uncomplicated
CPT/HCPCS: 36415; 71045-TC; 76700-TC; 78226; 80048-TC; 80053-TC; 80076-TC; 81001; 82140-TC; 82550-TC; 82570-TC; 83690-TC; 83735-TC; 83880; 83970; 84100-TC; 84155; 84165; 84300-TC; 84443-TC; 84484-TC; 85025-TC; 85730-TC; 87086-TC; 93307-TC; 98960; A4223; A9537; G0378; G0480; J1171; J1200; J1940; J2270; J2405; J2470; J2543; J3475; J7030; J7040; J7060; Q0163

== ENCOUNTER 2023-12-30 02:28 | Inpatient (IN) | payer OTHER, MEDICARE ==
[~2023-12-30] VITALS: Ht 157.5 cm; Wt 56.7 kg
[~2023-12-30 02:28] MED LIST changes: +ASPI-1169 PO; -OXYC-128 PO; -OXYC1TAB8 PO; -PRED20TA PO
[2023-12-30] MEDS ORDERED: ONDANSETRON HCL/PF 4 MG/2 ML VIAL ONE (03:18)
[2023-12-30] MEDS ORDERED: MORPHINE SULFATE INJ 4 MG/ML DISP.SYRIN ONE (03:18)
[2023-12-30] MEDS: IV NS 0.9% 500 ML BAG IV ONE (03:18)
[2023-12-30] MEDS: MORPHINE SULFATE INJ 2 MG/ML DISP.SYRIN IV ONE ×2 (03:19→05:50)
[2023-12-30] MEDS: ONDANSETRON HCL/PF 4 MG/2 ML VIAL IVP ONE (03:19)
[2023-12-30 03:23] LABS: BASOPHILS % (AUTO) 0.4 % (0.0-2.0); EOSINOPHILS % (AUTO) 1.2 % (0.0-6.0); HEMATOCRIT 27 % (33-45); LYMPHOCYTES # (AUTO) 0.8 K/uL (0.8-4.8); MEAN CORPUSCULAR HEMOGLOBIN 32 PG (26.0-33.0); MEAN CORPUSCULAR HGB CONC 33 g/dl (31.0-36.0); MEAN CORPUSCULAR VOLUME 96 fL (82-100); MONOCYTES # (AUTO) 0.2 K/uL (0.1-1.30); MONOCYTES % (AUTO) 5.2 % (2.0-12.0); NEUTROPHILS # (AUTO) 2.3 K/uL (1.8-8.9); NEUTROPHILS % (AUTO) 68.2 % (43.0-81.0); PLATELET COUNT (AUTO) 132 K/uL (150-450); RED BLOOD CELL COUNT(AUTO) 2.81 MIL/uL (4.0-5.2); RED CELL DISTRIBUTION WIDTH 17.3 % (11.5-15.0); WHITE BLOOD COUNT (AUTO) 3.3 K/uL (4.3-11.0)
[2023-12-30 03:35] LABS: INR 1.25 (0.91-1.10); PARTIAL THROMBOPLASTIN TIME 26.7 SEC (24.3-34.3); PROTHROMBIN TIME 13.1 SECS (9.2-11.1)
[2023-12-30] MEDS ORDERED: ASPIRIN 325 MG TABLET ONE (04:18)
[2023-12-30] MEDS: ASPIRIN 325 MG TABLET PO ONE (04:19)
[2023-12-30 04:20] LABS: CALCIUM, SERUM 8.2 mg/dL (8.5-10.1); CREATININE 1.4 mg/dL (0.6-1.3)
[2023-12-30 04:23] LABS: CARBON DIOXIDE 23 mmol/L (21-32); CHLORIDE 99 mmol/L (98-107); GLUCOSE 123 mg/dL (74-106); POTASSIUM 3.8 mmol/L (3.5-5.1); SODIUM SERUM 132 mmol/L (136-145); UREA NITROGEN, BLOOD 13 mg/dL (7-18)
[2023-12-30 04:23] LABS: APPEARANCE,URINE CLEAR (CLEAR); BILIRUBIN,URINE NEGATIVE (NEGATIVE); BLOOD, URINE NEGATIVE Ery/uL (NEGATIVE); COLOR,URINE YELLOW (YELLOW); KETONES,URINE NEGATIVE (NEGATIVE); LEUKOCYTE ESTERASE ,URINE TRACE (NEGATIVE); NITRITE, URINE NEGATIVE (NEGATIVE); PH,URINE 6.5 (5.0-8.0); PROTEIN,URINE NEGATIVE (NEGATIVE); UGLUCOSE NEGATIVE (NEGATIVE); UROBILINOGEN,URINE 0.2 EU/dL (0.2)
[2023-12-30 04:32] LABS: ALKALINE PHOSPHATASE 56 U/L (46-116); ASPARTATE AMINOTRANSFERASE 114 U/L (15-37); TOTAL PROTEIN, SERUM 7.4 g/dL (6.4-8.2)
[2023-12-30 04:33] LABS: ALANINE AMINOTRANSFERASE 60 U/L (12-78); ALBUMIN 3.5 g/dL (3.4-5.0); BILIRUBIN,DIRECT 1.1 mg/dL (0.0-0.2); BILIRUBIN,TOTAL 1.4 mg/dL (0.2-1.0); LIPASE 114 U/L (16-77)
[2023-12-30 04:58] LABS: ADD URINE CULTURE NO; BACTERIA,URINE None seen /HPF (None Seen); RBC,URINE NONE SEEN /HPF (0-2); WBC,URINE 0-2 /HPF (0-3)
[2023-12-30] MEDS ORDERED: NITROGLYCERIN 30 GM TUBE TP PRN (05:30)
[2023-12-30] MEDS ORDERED: ONDANSETRON HCL/PF 4 MG/2 ML VIAL IVP PRN (05:30)
[2023-12-30] MEDS ORDERED: IV NS 0.9% 1,000 ML IV PRN (05:30)
[2023-12-30] MEDS ORDERED: Z GUARD REMEDY 4 OZ OINT TP PRN (05:30)
[2023-12-30 06:33] LABS: BASOPHILS % (AUTO) 0.3 % (0.0-2.0); EOSINOPHILS % (AUTO) 1.2 % (0.0-6.0); HEMATOCRIT 27 % (33-45); HEMOGLOBIN 9.3 g/dL (11.5-14.8); LYMPHOCYTES # (AUTO) 0.7 K/uL (0.8-4.8); MEAN CORPUSCULAR HEMOGLOBIN 33 PG (26.0-33.0); MEAN CORPUSCULAR HGB CONC 34 g/dl (31.0-36.0); MEAN CORPUSCULAR VOLUME 97 fL (82-100); MONOCYTES # (AUTO) 0.1 K/uL (0.1-1.30); NEUTROPHILS # (AUTO) 1.8 K/uL (1.8-8.9); NEUTROPHILS % (AUTO) 68.5 % (43.0-81.0); PLATELET COUNT (AUTO) 128 K/uL (150-450); RED BLOOD CELL COUNT(AUTO) 2.82 MIL/uL (4.0-5.2); RED CELL DISTRIBUTION WIDTH 17.7 % (11.5-15.0); WHITE BLOOD COUNT (AUTO) 2.6 K/uL (4.3-11.0)
[2023-12-30 06:54] LABS: INR 1.25 (0.91-1.10); PROTHROMBIN TIME 13.1 SECS (9.2-11.1)
[2023-12-30] MEDS ORDERED: SUCR1TAB MT (07:21)
[2023-12-30] MEDS ORDERED: HYDR25TA4 PO (07:21)
[2023-12-30 07:47] LABS: ALBUMIN 3.5 g/dL (3.4-5.0); BILIRUBIN,DIRECT 1.1 mg/dL (0.0-0.2); BILIRUBIN,TOTAL 1.5 mg/dL (0.2-1.0); CALCIUM, SERUM 8.4 mg/dL (8.5-10.1); CREATININE 1.2 mg/dL (0.6-1.3); MAGNESIUM 1.5 mg/dL (1.8-2.4); PHOSPHORUS 2.7 mg/dL (2.5-4.9); POTASSIUM 3.9 mmol/L (3.5-5.1); TOTAL PROTEIN, SERUM 7.5 g/dL (6.4-8.2)
[2023-12-30 07:58] LABS: THYROID STIMULATING HORMONE 4.05 uIU/mL (0.358-3.74)
[2023-12-30 08:00] VITALS: BP 140/66; TEMP 98.5; O2SAT 97
[2023-12-30] MEDS ORDERED: ALBUTEROL FS 2.5 MG/3 ML VIAL.NEB NEB PRN (09:30)
[2023-12-30] MEDS: PANTOPRAZOLE 40 MG VIAL IV SCH (09:35)
[2023-12-30 10:00] VITALS: BP 129/93; TEMP 98.2; O2SAT 95
[2023-12-30] MEDS: Magnesium 1GM/D5W 100ML PREMIX 100 ML IV SCH (10:14)
[2023-12-30] MEDS: MORPHINE SULFATE INJ 2 MG/ML DISP.SYRIN IV PRN (10:25)
[2023-12-30 12:00] VITALS: BP 129/93; TEMP 98.2; O2SAT 95
[2023-12-30] MEDS: SUCRALFATE 1 G TABLET PO SCH (13:20)
[2023-12-30 16:00] VITALS: BP 124/86; TEMP 98.6; O2SAT 99
[2023-12-30] MEDS: RIFAXIMIN 550 MG TABLET PO SCH (16:27)
[2023-12-30 20:37] VITALS: BP 139/86; TEMP 98.2; O2SAT 99
[2023-12-30] MEDS: LEVETIRACETAM (250 MG) 250 MG TABLET PO SCH (21:08)
[2023-12-31 00:47] VITALS: BP 134/85; TEMP 98.6; O2SAT 97
[2023-12-31 04:00] VITALS: BP 141/89; TEMP 98.8; O2SAT 95
[2023-12-31 06:27] LABS: BASOPHILS % (AUTO) 0.2 % (0.0-2.0); EOSINOPHILS # (AUTO) 0.1 K/uL (0.0-0.7); EOSINOPHILS % (AUTO) 1.5 % (0.0-6.0); HEMATOCRIT 26 % (33-45); HEMOGLOBIN 8.7 g/dL (11.5-14.8); LYMPHOCYTES # (AUTO) 0.6 K/uL (0.8-4.8); LYMPHOCYTES % (AUTO) 13.3 % (20.0-44.0); MEAN CORPUSCULAR HEMOGLOBIN 33 PG (26.0-33.0); MEAN CORPUSCULAR HGB CONC 33 g/dl (31.0-36.0); MEAN CORPUSCULAR VOLUME 98 fL (82-100); MONOCYTES # (AUTO) 0.2 K/uL (0.1-1.30); MONOCYTES % (AUTO) 4.4 % (2.0-12.0); NEUTROPHILS # (AUTO) 3.6 K/uL (1.8-8.9); NEUTROPHILS % (AUTO) 80.6 % (43.0-81.0); PLATELET COUNT (AUTO) 111 K/uL (150-450); RED BLOOD CELL COUNT(AUTO) 2.67 MIL/uL (4.0-5.2); RED CELL DISTRIBUTION WIDTH 17.8 % (11.5-15.0); WHITE BLOOD COUNT (AUTO) 4.5 K/uL (4.3-11.0)
[2023-12-31 06:52] LABS: CALCIUM, SERUM 8.9 mg/dL (8.5-10.1); CREATININE 1.3 mg/dL (0.6-1.3); MAGNESIUM 1.8 mg/dL (1.8-2.4); PHOSPHORUS 2.9 mg/dL (2.5-4.9); POTASSIUM 4.6 mmol/L (3.5-5.1)
[2023-12-31 08:00] VITALS: BP 124/83; TEMP 98.6; O2SAT 96
[2023-12-31] MEDS: PANTOPRAZOLE 40 MG TABLET.DR PO SCH (08:29)
[2023-12-31] MEDS: NIFEdipine XL (30MG) 30 MG TAB PO SCH (08:39)
[2023-12-31] MEDS ORDERED: SPIR25TA PO (10:37)
[2023-12-31 12:00] VITALS: BP 120/77; TEMP 98.4; O2SAT 96
== END 2023-12-31 16:42 | disposition home or self-care (01) | DRG 282 ==
LOC: ER 02:51 → TELE1 05:25 → MEDSG1 12-31 13:59
PROVIDERS: ADMIT Nurse Practitioner Acute Care; ATTEND Nurse Practitioner Acute Care
DX: K85.90 Acute pancreatitis without necrosis or infection, unspecified (principal); I21.A1 Myocardial infarction type 2; D61.818 Other pancytopenia; I42.9 Cardiomyopathy, unspecified; N17.9 Acute kidney failure, unspecified; E87.1 Hypo-osmolality and hyponatremia; D64.9 Anemia, unspecified; C55 Malignant neoplasm of uterus, part unspecified; I48.91 Unspecified atrial fibrillation; E86.9 Volume depletion, unspecified; E83.42 Hypomagnesemia; I50.9 Heart failure, unspecified; I11.0 Hypertensive heart disease with heart failure; F31.9 Bipolar disorder, unspecified; F15.11 Other stimulant abuse, in remission; I25.10 Atherosclerotic heart disease of native coronary artery without angina pectoris; I25.2 Old myocardial infarction; J44.9 Chronic obstructive pulmonary disease, unspecified; K52.9 Noninfective gastroenteritis and colitis, unspecified; K74.60 Unspecified cirrhosis of liver; M89.8X9 Other specified disorders of bone, unspecified site; Z91.199 Patient's noncompliance with other medical treatment and regimen due to unspecified reason; Y90.7 Blood alcohol level of 200-239 mg/100 ml; Z92.21 Personal history of antineoplastic chemotherapy; K59.00 Constipation, unspecified; H54.8 Legal blindness, as defined in USA; Z90.01 Acquired absence of eye; F10.10 Alcohol abuse, uncomplicated
CPT/HCPCS: 36415; 71045-TC; 80048-TC; 80061-TC; 80076-TC; 81001; 82150-TC; 83690-TC; 83735-TC; 84100-TC; 84443-TC; 84484-TC; 85025-TC; 85610-TC; 85730-TC; A4223; G0378; G0480; J2270; J2405; J2470; J3475; J7030; J7040; J7050

== ENCOUNTER 2024-01-04 17:49 | Inpatient (IN) | payer MEDICARE, OTHER ==
[~2024-01-04] VITALS: Ht 154.9 cm; Wt 56.7 kg
[~2024-01-04 17:49] MED LIST changes: -LACT10SO58 PO; +SPIR25TA PO; +SUCR1TAB MT
[2024-01-04] MEDS ORDERED: ONDANSETRON HCL/PF 4 MG/2 ML VIAL ONE (18:21)
[2024-01-04] MEDS ORDERED: MORPHINE SULFATE INJ 4 MG/ML DISP.SYRIN ONE (18:22)
[2024-01-04 18:26] LABS: BASOPHILS % (AUTO) 0.5 % (0.0-2.0); EOSINOPHILS % (AUTO) 0.3 % (0.0-6.0); HEMATOCRIT 30 % (33-45); HEMOGLOBIN 9.8 g/dL (11.5-14.8); LYMPHOCYTES # (AUTO) 0.5 K/uL (0.8-4.8); MEAN CORPUSCULAR HEMOGLOBIN 33 PG (26.0-33.0); MEAN CORPUSCULAR HGB CONC 32 g/dl (31.0-36.0); MEAN CORPUSCULAR VOLUME 102 fL (82-100); MONOCYTES # (AUTO) 0.2 K/uL (0.1-1.30); MONOCYTES % (AUTO) 4.7 % (2.0-12.0); NEUTROPHILS % (AUTO) 81.5 % (43.0-81.0); PLATELET COUNT (AUTO) 135 K/uL (150-450); RED BLOOD CELL COUNT(AUTO) 2.98 MIL/uL (4.0-5.2); RED CELL DISTRIBUTION WIDTH 18.8 % (11.5-15.0); WHITE BLOOD COUNT (AUTO) 3.7 K/uL (4.3-11.0)
[2024-01-04] MEDS: IV NS 0.9% 1,000 ML BAG IV ONE (18:26)
[2024-01-04] MEDS: ONDANSETRON HCL/PF 4 MG/2 ML VIAL IVP ONE (18:27)
[2024-01-04] MEDS: MORPHINE SULFATE INJ 2 MG/ML DISP.SYRIN IV ONE (18:27)
[2024-01-04 18:43] LABS: BILIRUBIN,DIRECT 1.5 mg/dL (0.0-0.2); BILIRUBIN,TOTAL 2.2 mg/dL (0.2-1.0); CALCIUM, SERUM 9.4 mg/dL (8.5-10.1); CREATININE 1.3 mg/dL (0.6-1.3); POTASSIUM 4.4 mmol/L (3.5-5.1)
[2024-01-04 18:50] LABS: NT-PRO BNP > 25000 pg/mL (0-125)
[2024-01-04] MEDS ORDERED: DEXTROSE 50%-WATER 50 ML DISP.SYRIN ONE (19:12)
[2024-01-04] MEDS ORDERED: IV NS 0.9% 250 ML IV ONE (19:27)
[2024-01-04] MEDS ORDERED: IOHEXOL-350 100 ML VIAL IV ONE (19:27)
[2024-01-04] MEDS ORDERED: CT SWABBABLE VALVE TRANS SET 1 EA INFUS.SET MC ONE (19:27)
[2024-01-04] MEDS: DEXTROSE 50%-WATER 50 ML DISP.SYRIN IVP ONE (19:30)
[2024-01-04] MEDS ORDERED: MORPHINE SULFATE INJ 10 MG/ML DISP.SYRIN IV PRN (20:00)
[2024-01-04] MEDS ORDERED: Z GUARD REMEDY 4 OZ OINT TP PRN (20:00)
[2024-01-04] MEDS ORDERED: MAG HYDROX/AL HYDROX/SIMETH 30 ML UDC PO PRN (20:00)
[2024-01-04 20:07] LABS: LACTIC ACID 6.5 mmol/L (0.4-2.0)
[2024-01-04] MEDS: SUCRALFATE 1 G TABLET PO SCH (21:00)
[2024-01-04] MEDS ORDERED: ALBUTEROL FS 2.5 MG/3 ML VIAL.NEB NEB PRN (21:00)
[2024-01-04 21:30] VITALS: BP 148/103; TEMP 98.2; O2SAT 98
[2024-01-04] MEDS: IV D5/0.45 NACL 1,000 ML IV PRN (21:58)
[2024-01-04] MEDS: PIPERACI/TAZO 3.375GM/D5W 50ML PB IV ONE (22:05)
[2024-01-04] MEDS: PIPERACILLIN /TAZOBACTAM 3.375 G in IV D5W 50 ML IV ONE (22:09)
[2024-01-05] VITALS: BP 141/101; TEMP 98.4; O2SAT 98
[2024-01-05] MEDS ORDERED: PIPERACILLIN /TAZOBACTAM 3.375 G in IV D5W 50 ML IV SCH
[2024-01-05] MEDS: ONDANSETRON HCL/PF 4 MG/2 ML VIAL IVP PRN (01:03)
[2024-01-05] MEDS: MORPHINE SULFATE INJ 2 MG/ML DISP.SYRIN IV PRN ×2 (01:07→05:09)
[2024-01-05] MEDS: IV D5/0.45 NACL 1,000 ML IV PRN (01:47)
[2024-01-05 02:50] LABS: BASOPHILS % (AUTO) 0.2 % (0.0-2.0); EOSINOPHILS % (AUTO) 0.1 % (0.0-6.0); HEMATOCRIT 29 % (33-45); HEMOGLOBIN 9.4 g/dL (11.5-14.8); LYMPHOCYTES # (AUTO) 0.4 K/uL (0.8-4.8); LYMPHOCYTES % (AUTO) 12.1 % (20.0-44.0); MEAN CORPUSCULAR HEMOGLOBIN 32 PG (26.0-33.0); MEAN CORPUSCULAR HGB CONC 32 g/dl (31.0-36.0); MEAN CORPUSCULAR VOLUME 100 fL (82-100); MONOCYTES # (AUTO) 0.2 K/uL (0.1-1.30); MONOCYTES % (AUTO) 7.1 % (2.0-12.0); NEUTROPHILS # (AUTO) 2.8 K/uL (1.8-8.9); NEUTROPHILS % (AUTO) 80.5 % (43.0-81.0); PLATELET COUNT (AUTO) 121 K/uL (150-450); RED BLOOD CELL COUNT(AUTO) 2.91 MIL/uL (4.0-5.2); RED CELL DISTRIBUTION WIDTH 18.9 % (11.5-15.0); WHITE BLOOD COUNT (AUTO) 3.4 K/uL (4.3-11.0)
[2024-01-05] MEDS: ZOSYN IVPB 2.25 G in IV D5W 50ml IV SCH (02:58)
[2024-01-05 03:20] LABS: ALBUMIN 3.7 g/dL (3.4-5.0); BILIRUBIN,TOTAL 2.7 mg/dL (0.2-1.0); CALCIUM, SERUM 9.1 mg/dL (8.5-10.1); CREATININE 1.5 mg/dL (0.6-1.3); MAGNESIUM 1.5 mg/dL (1.8-2.4); PHOSPHORUS 5.2 mg/dL (2.5-4.9); POTASSIUM 5.1 mmol/L (3.5-5.1); TOTAL PROTEIN, SERUM 7.7 g/dL (6.4-8.2)
[2024-01-05] MEDS: IV NS 0.9% 500 ML IV ONE (03:47)
[2024-01-05 04:00] VITALS: BP 145/102; TEMP 98.2; O2SAT 98
[2024-01-05] MEDS: Magnesium 1GM/D5W 100ML PREMIX PIGGYBACK IV ONE (04:55)
[2024-01-05 05:00] LABS: APPEARANCE,URINE CLEAR (CLEAR); BILIRUBIN,URINE 1+ (NEGATIVE); BLOOD, URINE TRACE-INTA Ery/uL (NEGATIVE); COLOR,URINE YELLOW (YELLOW); KETONES,URINE NEGATIVE (NEGATIVE); LEUKOCYTE ESTERASE ,URINE NEGATIVE (NEGATIVE); NITRITE, URINE NEGATIVE (NEGATIVE); PH,URINE 5.5 (5.0-8.0); PROTEIN,URINE 1+ mg/dl (NEGATIVE); UGLUCOSE NEGATIVE (NEGATIVE); UROBILINOGEN,URINE 0.2 EU/dL (0.2)
[2024-01-05 05:01] LABS: ADD URINE CULTURE NO; BACTERIA,URINE Rare /HPF (None Seen); SQUAMOUS EPITHELIAL CELL,UR Few /HPF (None Seen); WBC,URINE 0-2 /HPF (0-3)
[2024-01-05 05:09] LABS: AMPHETAMINE, URINE POSITIVE (NEGATIVE); BARBITURATE, URINE NEGATIVE (NEGATIVE); BENZODIAZEPINE, URINE NEGATIVE (NEGATIVE); CANNABINOID, URINE NEGATIVE (NEGATIVE); COCCAINE, URINE NEGATIVE (NEGATIVE); PHENCYCLIDINE SCREEN,URINE NEGATIVE (NEGATIVE)
[2024-01-05 05:10] LABS: OPIATE, URINE POSITIVE (NEGATIVE)
[2024-01-05 08:41] VITALS: BP 145/96; TEMP 98.6; O2SAT 99
[2024-01-05] MEDS: SACUBITRIL/VALSARTAN 24/26MG TABLET PO SCH (09:00)
[2024-01-05] MEDS: FERROUS SULFATE (325 MG) 325 MG/TAB TABLET PO SCH (09:00)
[2024-01-05] MEDS: METOPROLOL SUCCINATE 50 MG TAB.SR.24H PO SCH (09:00)
[2024-01-05] MEDS: DOCUSATE SODIUM 100 MG CAPSULE PO SCH (09:00)
[2024-01-05] MEDS: RIFAXIMIN 550 MG TABLET PO SCH (09:00)
[2024-01-05] MEDS: NIFEdipine XL (30MG) 30 MG TAB PO SCH (09:00)
[2024-01-05] MEDS: ASPIRIN 81 MG TAB.CHEW PO SCH (09:00)
[2024-01-05] MEDS: LEVETIRACETAM (250 MG) 250 MG TABLET PO SCH (09:00)
[2024-01-05] MEDS ORDERED: PANTOPRAZOLE 40 MG TABLET.DR PO SCH (09:00)
[2024-01-05] MEDS: FOLIC ACID 1 MG TABLET PO SCH (09:00)
[2024-01-05] MEDS: PANTOPRAZOLE 40 MG VIAL IV SCH (09:26)
[2024-01-05 12:00] VITALS: BP 153/99; TEMP 97.5; O2SAT 98
[2024-01-05 16:00] VITALS: BP 133/86; TEMP 98.4; O2SAT 98
[2024-01-05 20:00] VITALS: BP 130/80; TEMP 98.1; O2SAT 97
[2024-01-06] VITALS: BP 127/84; TEMP 97.6; O2SAT 97
[2024-01-06 01:11] LABS: CREATININE, URINE 94.9 MG/DL (30.0-125.0); URINE TOTAL PROTEIN 61.1 mg/dL (0-11.9)
[2024-01-06 04:00] VITALS: BP 127/76; TEMP 98.1; O2SAT 97
[2024-01-06 06:25] LABS: BASOPHILS % (AUTO) 0.5 % (0.0-2.0); EOSINOPHILS % (AUTO) 2.1 % (0.0-6.0); HEMATOCRIT 27 % (33-45); HEMOGLOBIN 8.7 g/dL (11.5-14.8); LYMPHOCYTES # (AUTO) 0.3 K/uL (0.8-4.8); LYMPHOCYTES % (AUTO) 12.9 % (20.0-44.0); MEAN CORPUSCULAR HEMOGLOBIN 33 PG (26.0-33.0); MEAN CORPUSCULAR HGB CONC 33 g/dl (31.0-36.0); MEAN CORPUSCULAR VOLUME 100 fL (82-100); MONOCYTES # (AUTO) 0.2 K/uL (0.1-1.30); MONOCYTES % (AUTO) 9.6 % (2.0-12.0); NEUTROPHILS # (AUTO) 1.6 K/uL (1.8-8.9); NEUTROPHILS % (AUTO) 74.9 % (43.0-81.0); PLATELET COUNT (AUTO) 112 K/uL (150-450); RED BLOOD CELL COUNT(AUTO) 2.66 MIL/uL (4.0-5.2); RED CELL DISTRIBUTION WIDTH 18.5 % (11.5-15.0); WHITE BLOOD COUNT (AUTO) 2.1 K/uL (4.3-11.0)
[2024-01-06 06:45] LABS: CALCIUM, SERUM 8.9 mg/dL (8.5-10.1); CREATININE 1.7 mg/dL (0.6-1.3); MAGNESIUM 1.8 mg/dL (1.8-2.4); PHOSPHORUS 3.8 mg/dL (2.5-4.9); POTASSIUM 4.2 mmol/L (3.5-5.1)
[2024-01-06 08:00] VITALS: BP 130/89; TEMP 97.9; O2SAT 99
[2024-01-06] MEDS: CLOTRIMAZOLE 1% 15 GM TUBE TP SCH (08:30)
[2024-01-06] MEDS ORDERED: IOHEXOL-350 100 ML VIAL IV ONE (10:29)
[2024-01-06] MEDS ORDERED: IV NS 0.9% 250 ML IV ONE (10:29)
[2024-01-06 11:42] LABS: ALBUMIN 2.8 g/dL (3.4-5.0); BILIRUBIN,DIRECT 1.9 mg/dL (0.0-0.2); BILIRUBIN,TOTAL 2.4 mg/dL (0.2-1.0); TOTAL PROTEIN, SERUM 6.1 g/dL (6.4-8.2)
[2024-01-06 11:45] LABS: LACTIC ACID 1.2 mmol/L (0.4-2.0)
[2024-01-06 12:00] VITALS: BP 125/75; TEMP 97.9; O2SAT 96
[2024-01-06] MEDS ORDERED: Magnesium 1GM/D5W 100ML PREMIX PIGGYBACK IV ONE (15:30)
[2024-01-06] MEDS: Magnesium 1GM/D5W 100ML PREMIX 100 ML IV SCH (15:35)
[2024-01-06 16:00] VITALS: BP 130/76; TEMP 97.9; O2SAT 97
[2024-01-06 20:00] VITALS: BP 119/79; TEMP 98.6; O2SAT 96
[2024-01-07] VITALS: BP 128/87; TEMP 97.9; O2SAT 97
[2024-01-07] MEDS: ALPRAZOLAM 0.25 MG TABLET PO PRN (02:18)
[2024-01-07 04:00] VITALS: BP 125/82; TEMP 98.3; O2SAT 99
[2024-01-07 06:48] LABS: BASOPHILS % (AUTO) 0.2 % (0.0-2.0); EOSINOPHILS # (AUTO) 0.1 K/uL (0.0-0.7); EOSINOPHILS % (AUTO) 4.6 % (0.0-6.0); HEMATOCRIT 25 % (33-45); HEMOGLOBIN 8.3 g/dL (11.5-14.8); LYMPHOCYTES # (AUTO) 0.3 K/uL (0.8-4.8); LYMPHOCYTES % (AUTO) 13.8 % (20.0-44.0); MEAN CORPUSCULAR HEMOGLOBIN 32 PG (26.0-33.0); MEAN CORPUSCULAR HGB CONC 33 g/dl (31.0-36.0); MEAN CORPUSCULAR VOLUME 97 fL (82-100); MONOCYTES # (AUTO) 0.2 K/uL (0.1-1.30); MONOCYTES % (AUTO) 9.7 % (2.0-12.0); NEUTROPHILS # (AUTO) 1.4 K/uL (1.8-8.9); NEUTROPHILS % (AUTO) 71.7 % (43.0-81.0); PLATELET COUNT (AUTO) 117 K/uL (150-450); RED BLOOD CELL COUNT(AUTO) 2.62 MIL/uL (4.0-5.2); RED CELL DISTRIBUTION WIDTH 17.8 % (11.5-15.0)
[2024-01-07 06:57] LABS: WHITE BLOOD COUNT (AUTO) 1.9 K/uL (4.3-11.0)
[2024-01-07 07:08] LABS: CALCIUM, SERUM 8.6 mg/dL (8.5-10.1); CREATININE 1.7 mg/dL (0.6-1.3); MAGNESIUM 2.5 mg/dL (1.8-2.4); PHOSPHORUS 2.9 mg/dL (2.5-4.9); POTASSIUM 3.7 mmol/L (3.5-5.1)
[2024-01-07 07:37] LABS: BASOPHILS % (MANUAL) 0 % (0.0-2.0); EOSINOPHILS % (MANUAL) 3 % (0-4); LYMPHOCYTES % (MANUAL) 11 % (16-48); MONOCYTES % (MANUAL) 8 % (0-11.0); NEUTROPHILS % (MANUAL) 78 (42-76); PLATELET ESTIMATE DECREASED; ROULEAUX 1+
[2024-01-07 08:00] VITALS: BP 118/73; TEMP 98.1; O2SAT 95
[2024-01-07 12:00] VITALS: BP 128/83; TEMP 97.8; O2SAT 96
[2024-01-07 14:59] LABS: CREATININE 1.8 mg/dL (0.6-1.3)
[2024-01-07 16:00] VITALS: BP 141/84; TEMP 97.7; O2SAT 97
[2024-01-07 20:00] VITALS: BP 115/73; TEMP 97.3; O2SAT 96
[2024-01-08] VITALS: BP 121/76; TEMP 98.3; O2SAT 96
[2024-01-08] MEDS: ACETAMINOPHEN 325 MG TABLET PO PRN (02:05)
[2024-01-08 04:00] VITALS: BP 121/76; TEMP 98.3; O2SAT 96
[2024-01-08 06:56] LABS: BASOPHILS % (AUTO) 0.3 % (0.0-2.0); EOSINOPHILS # (AUTO) 0.1 K/uL (0.0-0.7); EOSINOPHILS % (AUTO) 2.2 % (0.0-6.0); HEMATOCRIT 25 % (33-45); HEMOGLOBIN 8.3 g/dL (11.5-14.8); LYMPHOCYTES # (AUTO) 0.2 K/uL (0.8-4.8); LYMPHOCYTES % (AUTO) 10.2 % (20.0-44.0); MEAN CORPUSCULAR HEMOGLOBIN 33 PG (26.0-33.0); MEAN CORPUSCULAR HGB CONC 34 g/dl (31.0-36.0); MEAN CORPUSCULAR VOLUME 97 fL (82-100); MONOCYTES # (AUTO) 0.3 K/uL (0.1-1.30); MONOCYTES % (AUTO) 11.8 % (2.0-12.0); NEUTROPHILS # (AUTO) 1.8 K/uL (1.8-8.9); NEUTROPHILS % (AUTO) 75.5 % (43.0-81.0); PLATELET COUNT (AUTO) 120 K/uL (150-450); RED BLOOD CELL COUNT(AUTO) 2.52 MIL/uL (4.0-5.2); RED CELL DISTRIBUTION WIDTH 17.9 % (11.5-15.0); WHITE BLOOD COUNT (AUTO) 2.3 K/uL (4.3-11.0)
[2024-01-08 07:15] LABS: CALCIUM, SERUM 7.7 mg/dL (8.5-10.1); CREATININE 1.7 mg/dL (0.6-1.3); MAGNESIUM 2.1 mg/dL (1.8-2.4); PHOSPHORUS 2.4 mg/dL (2.5-4.9); POTASSIUM 3.7 mmol/L (3.5-5.1)
[2024-01-08 08:00] VITALS: BP 112/74; TEMP 97.6; O2SAT 97
[2024-01-08] MEDS: IV D5/ 0.9% NACL 1,000 ML IV PRN (10:20)
[2024-01-08 12:00] VITALS: BP 112/74; TEMP 97.6; O2SAT 99
[2024-01-08 16:00] VITALS: BP 120/63; TEMP 97.8; O2SAT 96
[2024-01-08] MEDS: K PHOS NEUTRAL 250 MG TABLET PO ONE (16:14)
[2024-01-08 20:00] VITALS: BP 105/67; TEMP 97.8; O2SAT 96
[2024-01-09 04:00] VITALS: BP 108/69; TEMP 99.1; O2SAT 96
[2024-01-09 07:10] LABS: BASOPHILS % (AUTO) 0.1 % (0.0-2.0); EOSINOPHILS % (AUTO) 0.4 % (0.0-6.0); HEMATOCRIT 24 % (33-45); HEMOGLOBIN 7.9 g/dL (11.5-14.8); LYMPHOCYTES # (AUTO) 0.2 K/uL (0.8-4.8); LYMPHOCYTES % (AUTO) 9.2 % (20.0-44.0); MEAN CORPUSCULAR HEMOGLOBIN 33 PG (26.0-33.0); MEAN CORPUSCULAR HGB CONC 33 g/dl (31.0-36.0); MEAN CORPUSCULAR VOLUME 98 fL (82-100); MONOCYTES # (AUTO) 0.2 K/uL (0.1-1.30); MONOCYTES % (AUTO) 11.5 % (2.0-12.0); NEUTROPHILS # (AUTO) 1.6 K/uL (1.8-8.9); NEUTROPHILS % (AUTO) 78.8 % (43.0-81.0); PLATELET COUNT (AUTO) 92 K/uL (150-450); RED BLOOD CELL COUNT(AUTO) 2.43 MIL/uL (4.0-5.2); RED CELL DISTRIBUTION WIDTH 18.5 % (11.5-15.0)
[2024-01-09 07:22] LABS: RHEUMATOID FACTOR SCREEN NEGATIVE (NEGATIVE)
[2024-01-09 07:42] LABS: CREATININE 2.1 mg/dL (0.6-1.3); PHOSPHORUS 3.4 mg/dL (2.5-4.9); POTASSIUM 3.6 mmol/L (3.5-5.1)
[2024-01-09 07:54] LABS: C-REACTIVE PROTEIN 1.17 mg/dL (0.0-0.30); THYROID STIMULATING HORMONE 0.96 uIU/mL (0.358-3.74)
[2024-01-09 08:00] VITALS: BP 109/48; TEMP 97.8; O2SAT 94
[2024-01-09 08:44] LABS: LYMPHOCYTES % (MANUAL) 9 % (16-48); MONOCYTES % (MANUAL) 9 % (0-11.0); NEUTROPHILS % (MANUAL) 82 (42-76)
[2024-01-09 08:45] LABS: PLATELET ESTIMATE DECREASED
[2024-01-09 08:47] LABS: ANISOCYTOSIS 1+; OVALOCYTES 1+
[2024-01-09] MEDS: PANTOPRAZOLE 40 MG TABLET.DR PO SCH (08:50)
[2024-01-09 13:37] LABS: HIV-1 p24 ANTIGEN NON REACTIVE (NONREACTIVE); HIV-1/2 ANTIBODY NON REACTIVE (NONREACTIVE)
[2024-01-09] MEDS: SOD FERRIC GLUC 125 MG in IV NS 0.9% 100 ML IV SCH (15:08)
[2024-01-09 16:00] VITALS: BP 99/73; TEMP 98.6; O2SAT 93
[2024-01-09] MEDS: MAGNESIUM HYDROXIDE 30 ML UDC PO PRN (23:40)
[2024-01-10] VITALS: BP 136/96; TEMP 97.7; O2SAT 95
[2024-01-10 06:07] LABS: HEPATITIS B SURFACE AB Non Reactive (.)
[2024-01-10 06:44] LABS: BASOPHILS % (AUTO) 0.1 % (0.0-2.0); HEMATOCRIT 26 % (33-45); HEMOGLOBIN 8.7 g/dL (11.5-14.8); LYMPHOCYTES # (AUTO) 0.2 K/uL (0.8-4.8); LYMPHOCYTES % (AUTO) 8.5 % (20.0-44.0); MEAN CORPUSCULAR HEMOGLOBIN 33 PG (26.0-33.0); MEAN CORPUSCULAR HGB CONC 33 g/dl (31.0-36.0); MEAN CORPUSCULAR VOLUME 99 fL (82-100); MONOCYTES # (AUTO) 0.2 K/uL (0.1-1.30); MONOCYTES % (AUTO) 7.4 % (2.0-12.0); NEUTROPHILS # (AUTO) 1.9 K/uL (1.8-8.9); PLATELET COUNT (AUTO) 84 K/uL (150-450); RED BLOOD CELL COUNT(AUTO) 2.64 MIL/uL (4.0-5.2); RED CELL DISTRIBUTION WIDTH 18.8 % (11.5-15.0); WHITE BLOOD COUNT (AUTO) 2.3 K/uL (4.3-11.0)
[2024-01-10 07:19] LABS: CALCIUM, SERUM 7.8 mg/dL (8.5-10.1); CREATININE 2.2 mg/dL (0.6-1.3); MAGNESIUM 1.9 mg/dL (1.8-2.4); PHOSPHORUS 3.1 mg/dL (2.5-4.9); POTASSIUM 3.7 mmol/L (3.5-5.1)
[2024-01-10 07:51] LABS: BAND % (MANUAL) 1 % (0.0-5.0); LYMPHOCYTES % (MANUAL) 11 % (16-48); MONOCYTES % (MANUAL) 4 % (0-11.0); NEUTROPHILS % (MANUAL) 84 (42-76); PLATELET ESTIMATE DECREASED
[2024-01-10 07:52] LABS: OVALOCYTES 1+
[2024-01-10 08:00] VITALS: BP 137/80; TEMP 98.1; O2SAT 92
[2024-01-10 08:21] VITALS: BP 137/80
[2024-01-10] MEDS: ENOXAPARIN SODIUM 30 MG/0.3 ML DISP.SYRIN SQ SCH (08:59)
[2024-01-10 14:07] LABS: *ANA ANTI-CENTROMERE B AB <0.2 AI (0.0-0.9); *ANA ANTI-DNA(DS) AB, QN 31 IU/mL (0-9); *ANA ANTI-JO-1 <0.2 AI (0.0-0.9); *ANA ANTICHROMATIN ANTIBODY <0.2 AI (0.0-0.9); *ANA RNP ANTIBODIES <0.2 AI (0.0-0.9); *ANA SJOGREN'S ANTI-SS-A <0.2 AI (0.0-0.9); *ANA SJOGREN'S ANTI-SS-B <0.2 AI (0.0-0.9); *ANAANTI-SCLERODERMA-70 AB <0.2 AI (0.0-0.9); *ANASMITH AB <0.2 AI (0.0-0.9)
[2024-01-10 15:09] LABS: FREE KAPPA LT CHAINS SERUM 86.9 mg/L (3.3-19.4); FREE LAMBDA LT CHAIN SERUM 78.6 mg/L (5.7-26.3); KAPPA/LAMBDA RATIO SERUM 1.11 (0.26-1.65)
== END 2024-01-10 16:00 | disposition home health service (06) | DRG 388 ==
LOC: ER 18:04 → MEDSG1 20:49 → TELE1 21:22 → MEDSG1 01-08 12:05
PROVIDERS: ADMIT Nurse Practitioner Acute Care; ATTEND Nurse Practitioner Family
DX: K56.609 Unspecified intestinal obstruction, unspecified as to partial versus complete obstruction (principal); I21.A1 Myocardial infarction type 2; I50.22 Chronic systolic (congestive) heart failure; D61.818 Other pancytopenia; E87.1 Hypo-osmolality and hyponatremia; E87.20 Acidosis, unspecified; I42.9 Cardiomyopathy, unspecified; N17.9 Acute kidney failure, unspecified; R18.8 Other ascites; I13.0 Hypertensive heart and chronic kidney disease with heart failure and stage 1 through stage 4 chronic kidney disease, or unspecified chronic kidney disease; K74.60 Unspecified cirrhosis of liver; E86.0 Dehydration; E83.42 Hypomagnesemia; E88.09 Other disorders of plasma-protein metabolism, not elsewhere classified; I25.2 Old myocardial infarction; I48.91 Unspecified atrial fibrillation; J44.9 Chronic obstructive pulmonary disease, unspecified; M89.8X9 Other specified disorders of bone, unspecified site; N18.9 Chronic kidney disease, unspecified; Z79.899 Other long term (current) drug therapy; Z82.3 Family history of stroke; Z85.42 Personal history of malignant neoplasm of other parts of uterus; Z85.43 Personal history of malignant neoplasm of ovary; Z87.891 Personal history of nicotine dependence; Z97.0 Presence of artificial eye; H54.8 Legal blindness, as defined in USA; G89.29 Other chronic pain; D50.9 Iron deficiency anemia, unspecified; F31.9 Bipolar disorder, unspecified; G40.909 Epilepsy, unspecified, not intractable, without status epilepticus; I25.10 Atherosclerotic heart disease of native coronary artery without angina pectoris; Z79.82 Long term (current) use of aspirin; F10.21 Alcohol dependence, in remission; F19.11 Other psychoactive substance abuse, in remission; D72.819 Decreased white blood cell count, unspecified; R74.8 Abnormal levels of other serum enzymes; K56.7 Ileus, unspecified; E80.6 Other disorders of bilirubin metabolism; R74.01 Elevation of levels of liver transaminase levels; B19.20 Unspecified viral hepatitis C without hepatic coma
CPT/HCPCS: 36415; 71045-TC; 74018; 80048-TC; 80053-TC; 80076-TC; 81001; 82140-TC; 82378; 82565-TC; 82570-TC; 82607-TC; 82728-TC; 82784; 82962-TC; 83540-TC; 83605-TC; 83690-TC; 83735-TC; 83880; 84100-TC; 84155; 84165; 84300-TC; 84443-TC; 84484-TC; 84520-TC; 85025-TC; 85378-TC; 86140-TC; 86225; 86235; 86334; 86431-TC; 86706; 86803; 87040-TC; 87081-TC; 87340; 87806; A4223; G0378; G0480; J1650; J2270; J2405; J2470; J2543; J2916; J3475; J3490; J7030; J7040; J7042; J7050; J7060; Q9967

== ENCOUNTER 2024-01-24 20:50 | Inpatient (IN) | payer OTHER, MEDICARE ==
[~2024-01-24] VITALS: Ht 154.9 cm; Wt 66.7 kg
[2024-01-24] MEDS ORDERED: MORPHINE SULFATE INJ 2 MG/ML DISP.SYRIN ONE (22:53)
[2024-01-24] MEDS ORDERED: ONDANSETRON HCL/PF 4 MG/2 ML VIAL ONE (22:53)
[2024-01-24] MEDS: MORPHINE SULFATE INJ 2 MG/ML DISP.SYRIN IV ONE (22:54)
[2024-01-24] MEDS: ONDANSETRON HCL/PF - ER 4 MG/2 ML VIAL IV ONE (22:54)
[2024-01-24 23:01] LABS: BASOPHILS % (AUTO) 0.2 % (0.0-2.0); EOSINOPHILS % (AUTO) 0.3 % (0.0-6.0); HEMATOCRIT 29 % (33-45); HEMOGLOBIN 9.9 g/dL (11.5-14.8); LYMPHOCYTES # (AUTO) 0.4 K/uL (0.8-4.8); LYMPHOCYTES % (AUTO) 9.5 % (20.0-44.0); MEAN CORPUSCULAR HEMOGLOBIN 32 PG (26.0-33.0); MEAN CORPUSCULAR HGB CONC 34 g/dl (31.0-36.0); MEAN CORPUSCULAR VOLUME 95 fL (82-100); MONOCYTES # (AUTO) 0.3 K/uL (0.1-1.30); MONOCYTES % (AUTO) 6.9 % (2.0-12.0); NEUTROPHILS # (AUTO) 3.6 K/uL (1.8-8.9); NEUTROPHILS % (AUTO) 83.1 % (43.0-81.0); PLATELET COUNT (AUTO) 142 K/uL (150-450); RED BLOOD CELL COUNT(AUTO) 3.08 MIL/uL (4.0-5.2); RED CELL DISTRIBUTION WIDTH 17.5 % (11.5-15.0); WHITE BLOOD COUNT (AUTO) 4.4 K/uL (4.3-11.0)
[2024-01-24 23:19] LABS: CALCIUM, SERUM 8.6 mg/dL (8.5-10.1); CARBON DIOXIDE 21 mmol/L (21-32); CHLORIDE 97 mmol/L (98-107); CREATININE 2.1 mg/dL (0.6-1.3); GLUCOSE 82 mg/dL (74-106); POTASSIUM 3.6 mmol/L (3.5-5.1); SODIUM SERUM 135 mmol/L (136-145); UREA NITROGEN, BLOOD 18 mg/dL (7-18)
[2024-01-24 23:33] LABS: ALANINE AMINOTRANSFERASE 18 U/L (12-78); ALBUMIN 3.3 g/dL (3.4-5.0); ALCOHOL, BLOOD < 3 mg/dL (0-10); ALKALINE PHOSPHATASE 56 U/L (46-116); ASPARTATE AMINOTRANSFERASE 49 U/L (15-37); BILIRUBIN,TOTAL 2.9 mg/dL (0.2-1.0); LIPASE 24 U/L (16-77); NT-PRO BNP > 25000 pg/mL (0-125)
[2024-01-25 02:56] LABS: APPEARANCE,URINE CLEAR (CLEAR); BILIRUBIN,URINE 2+ (NEGATIVE); BLOOD, URINE NEGATIVE Ery/uL (NEGATIVE); COLOR,URINE YELLOW (YELLOW); KETONES,URINE NEGATIVE (NEGATIVE); LEUKOCYTE ESTERASE ,URINE NEGATIVE (NEGATIVE); NITRITE, URINE NEGATIVE (NEGATIVE); PH,URINE 5.5 (5.0-8.0); PROTEIN,URINE 1+ mg/dl (NEGATIVE); UGLUCOSE NEGATIVE (NEGATIVE); UROBILINOGEN,URINE 0.2 EU/dL (0.2)
[2024-01-25 03:08] LABS: ADD URINE CULTURE NO; BACTERIA,URINE 1+ /HPF (None Seen); SQUAMOUS EPITHELIAL CELL,UR Few /HPF (None Seen); WBC,URINE 0-2 /HPF (0-3)
[2024-01-25 03:09] LABS: URINE AMORPHOUS URATE Moderate /HPF (None Seen)
[2024-01-25 03:11] LABS: AMPHETAMINE, URINE POSITIVE (NEGATIVE); BARBITURATE, URINE NEGATIVE (NEGATIVE); BENZODIAZEPINE, URINE NEGATIVE (NEGATIVE); CANNABINOID, URINE NEGATIVE (NEGATIVE); COCCAINE, URINE NEGATIVE (NEGATIVE); PHENCYCLIDINE SCREEN,URINE NEGATIVE (NEGATIVE)
[2024-01-25] MEDS ORDERED: CEFTRIAXONE 1GM BAG (ER ONLY) 50 ML IV ONE (03:11)
[2024-01-25 03:12] LABS: OPIATE, URINE POSITIVE (NEGATIVE)
[2024-01-25] MEDS ORDERED: MORPHINE SULFATE INJ 2 MG/ML DISP.SYRIN ONE (03:12)
[2024-01-25] MEDS: MORPHINE SULFATE INJ 2 MG/ML DISP.SYRIN IV ONE (03:13)
[2024-01-25] MEDS: CEFTRIAXONE 1GM BAG (ER ONLY) 1 GM/50 ML PIGGYBACK IV ONE (03:13)
[2024-01-25] MEDS ORDERED: Z GUARD REMEDY 4 OZ OINT TP PRN (05:30)
[2024-01-25] MEDS: ONDANSETRON HCL/PF 4 MG/2 ML VIAL IVP PRN ×2 (06:35→11:16)
[2024-01-25 07:07] LABS: BASOPHILS % (AUTO) 0.3 % (0.0-2.0); EOSINOPHILS % (AUTO) 0.3 % (0.0-6.0); HEMATOCRIT 30 % (33-45); HEMOGLOBIN 9.7 g/dL (11.5-14.8); LYMPHOCYTES # (AUTO) 0.8 K/uL (0.8-4.8); LYMPHOCYTES % (AUTO) 15.8 % (20.0-44.0); MEAN CORPUSCULAR HEMOGLOBIN 31 PG (26.0-33.0); MEAN CORPUSCULAR HGB CONC 33 g/dl (31.0-36.0); MEAN CORPUSCULAR VOLUME 95 fL (82-100); MONOCYTES # (AUTO) 0.4 K/uL (0.1-1.30); MONOCYTES % (AUTO) 7.8 % (2.0-12.0); NEUTROPHILS # (AUTO) 3.8 K/uL (1.8-8.9); NEUTROPHILS % (AUTO) 75.8 % (43.0-81.0); PLATELET COUNT (AUTO) 155 K/uL (150-450); RED BLOOD CELL COUNT(AUTO) 3.13 MIL/uL (4.0-5.2); RED CELL DISTRIBUTION WIDTH 17.7 % (11.5-15.0)
[2024-01-25 07:49] LABS: ALBUMIN 3.1 g/dL (3.4-5.0); CALCIUM, SERUM 8.6 mg/dL (8.5-10.1); CARBON DIOXIDE 16 mmol/L (21-32); CHLORIDE 99 mmol/L (98-107); CREATININE 2.3 mg/dL (0.6-1.3); GLUCOSE 79 mg/dL (74-106); MAGNESIUM 1.3 mg/dL (1.8-2.4); PHOSPHORUS 3.8 mg/dL (2.5-4.9); POTASSIUM 4.2 mmol/L (3.5-5.1); SODIUM SERUM 137 mmol/L (136-145); UREA NITROGEN, BLOOD 20 mg/dL (7-18)
[2024-01-25 08:00] VITALS: BP 132/99; TEMP 98.6; O2SAT 98
[2024-01-25 08:40] LABS: NT-PRO BNP > 25000 pg/mL (0-125)
[2024-01-25] MEDS ORDERED: CEFTRIAXONE 1 G in IV D5W 50 ML IV SCH (09:00)
[2024-01-25] MEDS: PANTOPRAZOLE 40 MG VIAL IV SCH (09:02)
[2024-01-25] MEDS: MORPHINE SULFATE INJ 2 MG/ML DISP.SYRIN IV PRN ×2 (09:50→14:11)
[2024-01-25] MEDS: Magnesium 1GM/D5W 100ML PREMIX 100 ML IV SCH (09:55)
[2024-01-25] MEDS ORDERED: ALBUTEROL FS 2.5 MG/3 ML VIAL.NEB NEB PRN (13:00)
[2024-01-25] MEDS: SUCRALFATE 1 G TABLET PO SCH (13:00)
[2024-01-25 16:00] VITALS: BP 133/98; TEMP 97.7; O2SAT 99
[2024-01-25] MEDS: LEVETIRACETAM (250 MG) 250 MG TABLET PO SCH (16:44)
[2024-01-25] MEDS: DOCUSATE SODIUM 100 MG CAPSULE PO SCH (16:44)
[2024-01-25] MEDS: SACUBITRIL/VALSARTAN 24/26MG TABLET PO SCH (16:44)
[2024-01-25] MEDS: RIFAXIMIN 550 MG TABLET PO SCH (16:45)
[2024-01-25 17:05] LABS: INR 2.12 (0.91-1.10); PARTIAL THROMBOPLASTIN TIME 30.4 SEC (24.3-34.3); PROTHROMBIN TIME 21.4 SECS (9.2-11.1)
[2024-01-25 20:00] VITALS: BP 121/78; TEMP 97.2; O2SAT 95
[2024-01-25] MEDS: CEFTRIAXONE 1 G in IV D5W 50 ML IV SCH (22:59)
[2024-01-26] VITALS (21 sets, daily range): BP systolic 112–149; BP diastolic 72–99; TEMP 97.5–97.9; O2SAT 98–100
[2024-01-26 03:40] LABS: BASOPHILS # (AUTO) 0.1 K/uL (0.0-0.2); BASOPHILS % (AUTO) 0.7 % (0.0-2.0); EOSINOPHILS % (AUTO) 0.1 % (0.0-6.0); HEMATOCRIT 35 % (33-45); HEMOGLOBIN 10.3 g/dL (11.5-14.8); LYMPHOCYTES # (AUTO) 0.3 K/uL (0.8-4.8); LYMPHOCYTES % (AUTO) 2.9 % (20.0-44.0); MEAN CORPUSCULAR HEMOGLOBIN 31 PG (26.0-33.0); MEAN CORPUSCULAR HGB CONC 30 g/dl (31.0-36.0); MEAN CORPUSCULAR VOLUME 104 fL (82-100); MONOCYTES # (AUTO) 0.5 K/uL (0.1-1.30); MONOCYTES % (AUTO) 4.2 % (2.0-12.0); NEUTROPHILS # (AUTO) 10.3 K/uL (1.8-8.9); NEUTROPHILS % (AUTO) 92.1 % (43.0-81.0); PLATELET COUNT (AUTO) 136 K/uL (150-450); RED BLOOD CELL COUNT(AUTO) 3.36 MIL/uL (4.0-5.2); RED CELL DISTRIBUTION WIDTH 19.4 % (11.5-15.0); WHITE BLOOD COUNT (AUTO) 11.2 K/uL (4.3-11.0)
[2024-01-26 03:41] LABS: BASOPHILS # (AUTO) 0.1 K/uL (0.0-0.2); BASOPHILS % (AUTO) 1.1 % (0.0-2.0); EOSINOPHILS % (AUTO) 0.4 % (0.0-6.0); HEMATOCRIT 36 % (33-45); HEMOGLOBIN 10.5 g/dL (11.5-14.8); LYMPHOCYTES # (AUTO) 0.3 K/uL (0.8-4.8); LYMPHOCYTES % (AUTO) 2.8 % (20.0-44.0); MEAN CORPUSCULAR HEMOGLOBIN 31 PG (26.0-33.0); MEAN CORPUSCULAR HGB CONC 29 g/dl (31.0-36.0); MEAN CORPUSCULAR VOLUME 107 fL (82-100); MONOCYTES # (AUTO) 0.5 K/uL (0.1-1.30); MONOCYTES % (AUTO) 4.2 % (2.0-12.0); NEUTROPHILS # (AUTO) 10.6 K/uL (1.8-8.9); NEUTROPHILS % (AUTO) 91.5 % (43.0-81.0); PLATELET COUNT (AUTO) 147 K/uL (150-450); RED BLOOD CELL COUNT(AUTO) 3.35 MIL/uL (4.0-5.2); RED CELL DISTRIBUTION WIDTH 19.6 % (11.5-15.0); WHITE BLOOD COUNT (AUTO) 11.6 K/uL (4.3-11.0)
[2024-01-26 04:14] LABS: ALBUMIN 3.1 g/dL (3.4-5.0); CALCIUM, SERUM 9.4 mg/dL (8.5-10.1); CREATININE 3.7 mg/dL (0.6-1.3); MAGNESIUM 2.3 mg/dL (1.8-2.4); PHOSPHORUS 7.6 mg/dL (2.5-4.9); POTASSIUM 4.3 mmol/L (3.5-5.1); TOTAL PROTEIN, SERUM 7.4 g/dL (6.4-8.2)
[2024-01-26] MEDS ORDERED: DEXTROSE 50%-WATER 50 ML DISP.SYRIN ONE (04:59)
[2024-01-26] MEDS: DEXTROSE 50%-WATER 50 ML DISP.SYRIN IVP ONE ×2 (05:09→11:52)
[2024-01-26 06:46] LABS: BASOPHILS % (MANUAL) 0 % (0.0-2.0); EOSINOPHILS % (MANUAL) 0 % (0-4); LYMPHOCYTES % (MANUAL) 5 % (16-48); MONOCYTES % (MANUAL) 6 % (0-11.0); NEUTROPHILS % (MANUAL) 89 (42-76)
[2024-01-26 06:47] LABS: ANISOCYTOSIS 2+; PLATELET ESTIMATE DECREASED
[2024-01-26] MEDS ORDERED: PIPERACILLIN /TAZOBACTAM 3.375 G in IV D5W 50 ML IV SCH (08:30)
[2024-01-26] MEDS ORDERED: IV NS 0.9% 1,000 ML IV PRN (09:00)
[2024-01-26] MEDS ORDERED: SPIRONOLACTONE 25 MG TABLET PO SCH (09:00)
[2024-01-26] MEDS: PIPERACILLIN /TAZOBACTAM 2.25 G in IV D5W 50 ML IV SCH (09:22)
[2024-01-26] MEDS: FERROUS SULFATE (325 MG) 325 MG/TAB TABLET PO SCH (09:24)
[2024-01-26] MEDS: NIFEdipine XL (30MG) 30 MG TAB PO SCH (09:25)
[2024-01-26] MEDS: FOLIC ACID 1 MG TABLET PO SCH (09:25)
[2024-01-26] MEDS: PANTOPRAZOLE 40 MG TABLET.DR PO SCH (09:26)
[2024-01-26] MEDS: METOPROLOL SUCCINATE 50 MG TAB.SR.24H PO SCH (09:27)
[2024-01-26] MEDS: Sodium Chloride 77 MEQ in IV 10% DEXTROSE 1,000 ML IV ONE (12:04)
[2024-01-26] MEDS: PANTOPRAZOLE 40 MG VIAL IV SCH (12:06)
[2024-01-26] MEDS ORDERED: FUROSEMIDE 40 MG/4 ML VIAL IV SCH (13:00)
[2024-01-26] MEDS ORDERED: Sodium Bicarbonate 150 MEQ in IV D5W 1,000 ML IV PRN (14:30)
[2024-01-26 15:25] LABS: CALCIUM, SERUM 9.4 mg/dL (8.5-10.1); CHLORIDE 97 mmol/L (98-107); CREATININE 3.8 mg/dL (0.6-1.3); GLUCOSE 82 mg/dL (74-106); POTASSIUM 4.4 mmol/L (3.5-5.1); SODIUM SERUM 140 mmol/L (136-145); UREA NITROGEN, BLOOD 30 mg/dL (7-18)
[2024-01-26 15:27] LABS: CARBON DIOXIDE 4 mmol/L (21-32)
[2024-01-26 15:34] LABS: LACTIC ACID 22.4 mmol/L (0.4-2.0)
[2024-01-26 16:26] LABS: ABG BASE EXCESS -21.9 mmol/L (-2.0-3.0); ABG OXYGEN SATURATION 97.5 % (94.0-98.0); ABG PCO2 14.6 mmHg (32.0-45.0); ABG PH 7.145 (7.350-7.450); ABG PO2 130.5 mmHg (83.0-108.0); COHb 0.3 % (0.5-1.5); MetHb 0.2 % (0.0-1.5); SITE, ABG RIGHT RADIAL
[2024-01-26] MEDS: Sodium Bicarbonate 150 MEQ in IV D5W 1,000 ML IV SCH (17:03)
[2024-01-26] MEDS: SODIUM BICARBONATE SYR 50 MEQ/50 ML DISP.SYRIN IV ONE ×2 (17:03→17:08)
[2024-01-26 17:44] LABS: PROTHROMBIN TIME 44.6 SECS (9.2-11.1)
[2024-01-26 18:05] LABS: INR 4.65 (0.91-1.10)
[2024-01-26 18:12] LABS: BASOPHILS % (AUTO) 0.1 % (0.0-2.0); HEMOGLOBIN 8.6 g/dL (11.5-14.8); LYMPHOCYTES # (AUTO) 0.2 K/uL (0.8-4.8); MONOCYTES # (AUTO) 0.2 K/uL (0.1-1.30); PLATELET COUNT (AUTO) 89 K/uL (150-450)
[2024-01-26 18:17] LABS: EOSINOPHILS # (AUTO) 0.2 K/uL (0.0-0.7); EOSINOPHILS % (AUTO) 1.8 % (0.0-6.0); HEMATOCRIT 29 % (33-45); MEAN CORPUSCULAR HEMOGLOBIN 32 PG (26.0-33.0); MEAN CORPUSCULAR HGB CONC 30 g/dl (31.0-36.0); MEAN CORPUSCULAR VOLUME 107 fL (82-100); MONOCYTES % (AUTO) 1.8 % (2.0-12.0); NEUTROPHILS # (AUTO) 10.2 K/uL (1.8-8.9); NEUTROPHILS % (AUTO) 94.3 % (43.0-81.0); RED BLOOD CELL COUNT(AUTO) 2.69 MIL/uL (4.0-5.2); RED CELL DISTRIBUTION WIDTH 19.4 % (11.5-15.0); WHITE BLOOD COUNT (AUTO) 10.8 K/uL (4.3-11.0)
[2024-01-26] MEDS: IV LR 1000 ML 1,000 ML IV PRN (18:44)
[2024-01-26 18:52] LABS: BILIRUBIN,DIRECT 3.5 mg/dL (0.0-0.2)
[2024-01-26] MEDS ORDERED: ANESTHESIA TRAY IN PYXIS 1 EA TRAY MC ONE (19:34)
[2024-01-26] MEDS ORDERED: BUPIVACAINE 0.5 % PF 150 MG/30 ML VIAL ONE (19:35)
[2024-01-26] MEDS ORDERED: LIDOCAINE 1%-EPI 1:100,000 20 ML VIAL ONE (19:35)
[2024-01-26] MEDS ORDERED: SODIUM BICARBONATE SYR 50 MEQ/50 ML DISP.SYRIN IV ONE (20:03)
[2024-01-26] MEDS ORDERED: NOREPINEPHRINE 4 MG/4 ML AMPUL IV ONE (20:14)
[2024-01-26] MEDS ORDERED: FENTANYL PF 100MCG/2ML AMPUL ONE (20:15)
[2024-01-26] MEDS ORDERED: MIDAZOLAM HCL 2 MG/2ML VIAL ONE (20:15)
[2024-01-26] MEDS ORDERED: VASOPRESSIN INJ 20 UNIT/ML VIAL ONE (20:16)
[2024-01-26] MEDS ORDERED: ROCURONIUM BROMIDE 50 MG/5 ML ONE (20:16)
[2024-01-26 21:30] LABS: LYMPHOCYTES % (MANUAL) 4 % (16-48); MONOCYTES % (MANUAL) 2 % (0-11.0); NEUTROPHILS % (MANUAL) 94 (42-76)
[2024-01-26 21:31] LABS: ANISOCYTOSIS 2+; HYPOCHROMASIA 2+; PLATELET ESTIMATE DECREASED
[2024-01-26] MEDS ORDERED: SEVOFLURANE 250 ML BOTTLE IH ONE (21:47)
[2024-01-26] MEDS ORDERED: METRONIDAZOLE 500MG/ NS 100ML 100 ML IV ONE (22:59)
[2024-01-26] MEDS ORDERED: INDOCYANINE GREEN 25 MG/VIAL VIAL IJ ONE (23:11)
[2024-01-27] VITALS (89 sets, daily range): BP systolic 80–133; BP diastolic 40–96; TEMP 97–98.5; O2SAT 92–100
[2024-01-27 01:10] LABS: BASOPHILS % (AUTO) 0.3 % (0.0-2.0); EOSINOPHILS # (AUTO) 0.2 K/uL (0.0-0.7); EOSINOPHILS % (AUTO) 1.6 % (0.0-6.0); LYMPHOCYTES # (AUTO) 0.1 K/uL (0.8-4.8); LYMPHOCYTES % (AUTO) 1.2 % (20.0-44.0); MEAN CORPUSCULAR HEMOGLOBIN 31 PG (26.0-33.0); MEAN CORPUSCULAR HGB CONC 31 g/dl (31.0-36.0); MEAN CORPUSCULAR VOLUME 100 fL (82-100); MONOCYTES # (AUTO) 0.2 K/uL (0.1-1.30); MONOCYTES % (AUTO) 2.1 % (2.0-12.0); NEUTROPHILS # (AUTO) 9.9 K/uL (1.8-8.9); NEUTROPHILS % (AUTO) 94.8 % (43.0-81.0); PLATELET COUNT (AUTO) 79 K/uL (150-450); RED CELL DISTRIBUTION WIDTH 18.7 % (11.5-15.0); WHITE BLOOD COUNT (AUTO) 10.5 K/uL (4.3-11.0)
[2024-01-27 01:28] LABS: ALANINE AMINOTRANSFERASE 269 U/L (12-78); ALBUMIN 2.2 g/dL (3.4-5.0); ALKALINE PHOSPHATASE 52 U/L (46-116); ASPARTATE AMINOTRANSFERASE > 1000 U/L (15-37); BILIRUBIN,TOTAL 3.8 mg/dL (0.2-1.0); CALCIUM, SERUM 7.3 mg/dL (8.5-10.1); CARBON DIOXIDE 20 mmol/L (21-32); CHLORIDE 100 mmol/L (98-107); CREATININE 3.4 mg/dL (0.6-1.3); GLUCOSE 262 mg/dL (74-106); POTASSIUM 3.6 mmol/L (3.5-5.1); SODIUM SERUM 143 mmol/L (136-145); TOTAL PROTEIN, SERUM 5.3 g/dL (6.4-8.2); UREA NITROGEN, BLOOD 26 mg/dL (7-18)
[2024-01-27 01:36] LABS: RED BLOOD CELL COUNT(AUTO) 1.81 MIL/uL (4.0-5.2)
[2024-01-27 01:42] LABS: HEMATOCRIT 18 % (33-45); HEMOGLOBIN 5.7 g/dL (11.5-14.8)
[2024-01-27 02:09] LABS: INR 2.43 (0.91-1.10); PROTHROMBIN TIME 24.3 SECS (9.2-11.1)
[2024-01-27 02:36] LABS: ABG BASE EXCESS -8.9 mmol/L (-2.0-3.0); ABG OXYGEN SATURATION 99.5 % (94.0-98.0); ABG PCO2 44.8 mmHg (32.0-45.0); ABG PH 7.224 (7.350-7.450); ABG PO2 289.8 mmHg (83.0-108.0); ABG TOTAL HEMOGLOBIN 7.4 G/dL (12.0-16.0); COHb 0.3 % (0.5-1.5); MetHb 0.4 % (0.0-1.5); O2Hb 98.8 % (94.0-97.0); PEEP,BG 5 cm H2O; SITE, ABG ALINE; VT, ABG 400 mL
[2024-01-27 02:36] LABS: LYMPHOCYTES % (MANUAL) 1 % (16-48); MONOCYTES % (MANUAL) 1 % (0-11.0); NEUTROPHILS % (MANUAL) 98 (42-76)
[2024-01-27 02:37] LABS: ANISOCYTOSIS 2+; PLATELET ESTIMATE DECREASED
[2024-01-27 02:38] LABS: HYPOCHROMASIA 1+
[2024-01-27 05:49] LABS: CALCIUM, SERUM 7.7 mg/dL (8.5-10.1); CREATININE 1.5 mg/dL (0.6-1.3)
[2024-01-27 05:50] LABS: POTASSIUM 2.8 mmol/L (3.5-5.1)
[2024-01-27 05:51] LABS: BASOPHILS % (AUTO) 0.1 % (0.0-2.0); EOSINOPHILS # (AUTO) 0.1 K/uL (0.0-0.7); EOSINOPHILS % (AUTO) 1.6 % (0.0-6.0); HEMATOCRIT 29 % (33-45); HEMOGLOBIN 9.4 g/dL (11.5-14.8); LYMPHOCYTES # (AUTO) 0.1 K/uL (0.8-4.8); LYMPHOCYTES % (AUTO) 1.2 % (20.0-44.0); MEAN CORPUSCULAR HEMOGLOBIN 31 PG (26.0-33.0); MEAN CORPUSCULAR HGB CONC 33 g/dl (31.0-36.0); MEAN CORPUSCULAR VOLUME 94 fL (82-100); MONOCYTES # (AUTO) 0.2 K/uL (0.1-1.30); MONOCYTES % (AUTO) 2.2 % (2.0-12.0); NEUTROPHILS # (AUTO) 8.2 K/uL (1.8-8.9); NEUTROPHILS % (AUTO) 94.9 % (43.0-81.0); RED BLOOD CELL COUNT(AUTO) 3.06 MIL/uL (4.0-5.2); RED CELL DISTRIBUTION WIDTH 17.7 % (11.5-15.0); WHITE BLOOD COUNT (AUTO) 8.7 K/uL (4.3-11.0)
[2024-01-27] MEDS: VANCOMYCIN HCL 1.25 GM in IV D5W 250 ML IV ONE (05:56)
[2024-01-27] MEDS ORDERED: VANCOMYCIN POST DIALYSIS 500MG IV PRN (06:00)
[2024-01-27 06:04] LABS: LACTIC ACID 5.4 mmol/L (0.4-2.0)
[2024-01-27 06:18] LABS: PLATELET COUNT (AUTO) 28 K/uL (150-450)
[2024-01-27 06:48] LABS: BILIRUBIN,TOTAL 5.1 mg/dL (0.2-1.0)
[2024-01-27 06:49] LABS: ALBUMIN 2.5 g/dL (3.4-5.0)
[2024-01-27] MEDS ORDERED: POTASSIUM CL. PREMIX PERIPHER. 50 ML IV SCH (08:00)
[2024-01-27 08:07] LABS: PTH, INTACT 114 pg/mL (15-65)
[2024-01-27 08:15] LABS: BAND % (MANUAL) 8 % (0.0-5.0); LYMPHOCYTES % (MANUAL) 1 % (16-48); MONOCYTES % (MANUAL) 3 % (0-11.0); NEUTROPHILS % (MANUAL) 88 (42-76); PLATELET ESTIMATE DECREASED
[2024-01-27 08:16] LABS: TARGET CELLS 1+
[2024-01-27 08:29] LABS: ABG BASE EXCESS 2.3 mmol/L (-2.0-3.0); ABG OXYGEN SATURATION 99.3 % (94.0-98.0); ABG PCO2 36.4 mmHg (32.0-45.0); ABG PH 7.471 (7.350-7.450); ABG PO2 196.3 mmHg (83.0-108.0); ABG TOTAL HEMOGLOBIN 9.5 G/dL (12.0-16.0); COHb 0.3 % (0.5-1.5); SITE, ABG ALINE; VT, ABG 400 mL
[2024-01-27] MEDS: PIPERACILLIN /TAZOBACTAM 2.25 G in IV D5W 50 ML IV SCH (10:11)
[2024-01-27 10:20] LABS: BILIRUBIN,TOTAL 4.7 mg/dL (0.2-1.0); CALCIUM, SERUM 6.9 mg/dL (8.5-10.1); MAGNESIUM 1.4 mg/dL (1.8-2.4); PHOSPHORUS 2.4 mg/dL (2.5-4.9); POTASSIUM 2.8 mmol/L (3.5-5.1); TOTAL PROTEIN, SERUM 4.8 g/dL (6.4-8.2)
[2024-01-27] MEDS: POTASSIUM CL. PREMIX PERIPHER. 50 ML IV SCH (12:21)
[2024-01-27] MEDS ORDERED: DOSE PER PHARMACY MICAFUNGIN 1 EA XX PRN (13:30)
[2024-01-27] MEDS: MICAFUNGIN SODIUM 100 MG in IV NS 0.9% 100 ML IV SCH (14:19)
[2024-01-27] MEDS: Sodium Phosphate 15 MMOL in IV NS 0.9% 245 ML IV ONE (16:37)
[2024-01-27] MEDS: PHYTONADIONE INJ 10 MG/1 ML AMPUL SQ ONE (16:44)
[2024-01-27] MEDS ORDERED: PROPOFOL 100 ML IV PRN (19:00)
[2024-01-27] MEDS: PROPOFOL 100 ML IV PRN (19:09)
[2024-01-27] MEDS: NOREPINEPHRINE 8 MG in IV NS 0.9% 242 ML IV PRN (19:30)
[2024-01-27] MEDS: diphenhydrAMINE HCL 50 MG/ML VIAL IV ONE ×2 (20:30→23:18)
[2024-01-27 20:59] LABS: BASOPHILS % (AUTO) 0.2 % (0.0-2.0); EOSINOPHILS # (AUTO) 0.1 K/uL (0.0-0.7); EOSINOPHILS % (AUTO) 0.5 % (0.0-6.0); HEMATOCRIT 31 % (33-45); HEMOGLOBIN 10.1 g/dL (11.5-14.8); LYMPHOCYTES # (AUTO) 0.2 K/uL (0.8-4.8); LYMPHOCYTES % (AUTO) 1.6 % (20.0-44.0); MEAN CORPUSCULAR HEMOGLOBIN 31 PG (26.0-33.0); MEAN CORPUSCULAR HGB CONC 33 g/dl (31.0-36.0); MEAN CORPUSCULAR VOLUME 93 fL (82-100); MONOCYTES # (AUTO) 0.2 K/uL (0.1-1.30); MONOCYTES % (AUTO) 1.7 % (2.0-12.0); NEUTROPHILS # (AUTO) 11.5 K/uL (1.8-8.9); RED BLOOD CELL COUNT(AUTO) 3.29 MIL/uL (4.0-5.2); RED CELL DISTRIBUTION WIDTH 18.4 % (11.5-15.0)
[2024-01-27 21:29] LABS: PLATELET COUNT (AUTO) 38 K/uL (150-450)
[2024-01-27 21:30] LABS: ANISOCYTOSIS 1+; BAND % (MANUAL) 1 % (0.0-5.0); BASOPHILS % (MANUAL) 0 % (0.0-2.0); EOSINOPHILS % (MANUAL) 0 % (0-4); LYMPHOCYTES % (MANUAL) 3 % (16-48); MONOCYTES % (MANUAL) 1 % (0-11.0); NEUTROPHILS % (MANUAL) 95 (42-76); PLATELET ESTIMATE DECREASED
[2024-01-28] VITALS (81 sets, daily range): BP systolic 84–143; BP diastolic 43–77; TEMP 97.6–98.4; O2SAT 98–100
[2024-01-28 04:48] LABS: EOSINOPHILS # (AUTO) 0.1 K/uL (0.0-0.7); EOSINOPHILS % (AUTO) 0.6 % (0.0-6.0); HEMATOCRIT 30 % (33-45); HEMOGLOBIN 10.3 g/dL (11.5-14.8); LYMPHOCYTES # (AUTO) 0.2 K/uL (0.8-4.8); LYMPHOCYTES % (AUTO) 1.7 % (20.0-44.0); MEAN CORPUSCULAR HEMOGLOBIN 31 PG (26.0-33.0); MEAN CORPUSCULAR HGB CONC 34 g/dl (31.0-36.0); MEAN CORPUSCULAR VOLUME 92 fL (82-100); MONOCYTES # (AUTO) 0.3 K/uL (0.1-1.30); MONOCYTES % (AUTO) 2.1 % (2.0-12.0); NEUTROPHILS # (AUTO) 11.3 K/uL (1.8-8.9); NEUTROPHILS % (AUTO) 95.6 % (43.0-81.0); RED BLOOD CELL COUNT(AUTO) 3.31 MIL/uL (4.0-5.2); RED CELL DISTRIBUTION WIDTH 17.7 % (11.5-15.0); WHITE BLOOD COUNT (AUTO) 11.8 K/uL (4.3-11.0)
[2024-01-28 04:51] LABS: IRON, SERUM 136 ug/dl (50-175); TOTAL IRON BINDING CAPACITY 137 ug/dl (250-450)
[2024-01-28 04:53] LABS: PLATELET COUNT (AUTO) 44 K/uL (150-450)
[2024-01-28 04:56] LABS: ALANINE AMINOTRANSFERASE 297 U/L (12-78); ALBUMIN 2.1 g/dL (3.4-5.0); ALKALINE PHOSPHATASE 62 U/L (46-116); ASPARTATE AMINOTRANSFERASE > 1000 U/L (15-37); BILIRUBIN,TOTAL 7.4 mg/dL (0.2-1.0); CALCIUM, SERUM 7.7 mg/dL (8.5-10.1); CARBON DIOXIDE 30 mmol/L (21-32); CHLORIDE 101 mmol/L (98-107); CREATININE 2.3 mg/dL (0.6-1.3); GLUCOSE 103 mg/dL (74-106); POTASSIUM 3.7 mmol/L (3.5-5.1); SODIUM SERUM 141 mmol/L (136-145); TOTAL PROTEIN, SERUM 5.3 g/dL (6.4-8.2); UREA NITROGEN, BLOOD 18 mg/dL (7-18)
[2024-01-28 05:00] LABS: FIBRINOGEN ACTIVITY 159 Mg/dL (213-485); INR 2.57 (0.91-1.10); PARTIAL THROMBOPLASTIN TIME 37.3 SEC (24.3-34.3); PROTHROMBIN TIME 25.6 SECS (9.2-11.1)
[2024-01-28 05:21] LABS: D-DIMER > 35.20 mg/L(FEU (0.17-0.50)
[2024-01-28 06:03] LABS: FERRITIN 9033 ng/mL (8-388)
[2024-01-28 06:10] LABS: ANISOCYTOSIS 1+; BAND % (MANUAL) 5 % (0.0-5.0); LYMPHOCYTES % (MANUAL) 3 % (16-48); MONOCYTES % (MANUAL) 1 % (0-11.0); NEUTROPHILS % (MANUAL) 91 (42-76); PLATELET ESTIMATE DECREASED
[2024-01-28 06:11] LABS: OVALOCYTES 1+
[2024-01-28] MEDS: PROPOFOL 100 ML IV PRN (06:14)
[2024-01-28] MEDS ORDERED: TPN/PPN PER PHARMACY IV PRN (08:30)
[2024-01-28] MEDS ORDERED: DC PROPOFOL WHEN EXTUBATED XX PRN (09:00)
[2024-01-28 11:13] LABS: MAGNESIUM 1.5 mg/dL (1.8-2.4); PHOSPHORUS 3.2 mg/dL (2.5-4.9)
[2024-01-28 12:12] LABS: HEMOGLOBIN 10.7 g/dL (11.5-14.8)
[2024-01-28] MEDS: Magnesium 1GM/D5W 100ML PREMIX 100 ML IV SCH (12:15)
[2024-01-28] MEDS: PPN #1 IV SCH (12:47)
[2024-01-29] VITALS (41 sets, daily range): BP systolic 99–138; BP diastolic 56–109; TEMP 97.6–98.2; O2SAT 91–100
[2024-01-29 05:12] LABS: ALBUMIN 1.6 g/dL (3.4-5.0); BILIRUBIN,TOTAL 6.4 mg/dL (0.2-1.0); CALCIUM, SERUM 7.6 mg/dL (8.5-10.1); CREATININE 2.3 mg/dL (0.6-1.3); MAGNESIUM 1.9 mg/dL (1.8-2.4); PHOSPHORUS 1.7 mg/dL (2.5-4.9); POTASSIUM 2.9 mmol/L (3.5-5.1); TOTAL PROTEIN, SERUM 4.5 g/dL (6.4-8.2)
[2024-01-29] MEDS: POTASSIUM CL. PREMIX PERIPHER. 50 ML IV ONE (05:29)
[2024-01-29 05:33] LABS: EOSINOPHILS % (AUTO) 0.6 % (0.0-6.0); HEMATOCRIT 26 % (33-45); HEMOGLOBIN 8.8 g/dL (11.5-14.8); LYMPHOCYTES # (AUTO) 0.3 K/uL (0.8-4.8); LYMPHOCYTES % (AUTO) 3.4 % (20.0-44.0); MEAN CORPUSCULAR HEMOGLOBIN 31 PG (26.0-33.0); MEAN CORPUSCULAR HGB CONC 34 g/dl (31.0-36.0); MEAN CORPUSCULAR VOLUME 92 fL (82-100); MONOCYTES # (AUTO) 0.2 K/uL (0.1-1.30); MONOCYTES % (AUTO) 2.3 % (2.0-12.0); NEUTROPHILS # (AUTO) 7.2 K/uL (1.8-8.9); NEUTROPHILS % (AUTO) 93.7 % (43.0-81.0); RED BLOOD CELL COUNT(AUTO) 2.82 MIL/uL (4.0-5.2); RED CELL DISTRIBUTION WIDTH 17.6 % (11.5-15.0); WHITE BLOOD COUNT (AUTO) 7.7 K/uL (4.3-11.0)
[2024-01-29 05:37] LABS: PLATELET COUNT (AUTO) 27 K/uL (150-450)
[2024-01-29 05:46] LABS: FIBRINOGEN ACTIVITY 145 Mg/dL (213-485); INR 2.01 (0.91-1.10); PARTIAL THROMBOPLASTIN TIME 44.4 SEC (24.3-34.3); PROTHROMBIN TIME 20.4 SECS (9.2-11.1)
[2024-01-29 05:47] LABS: D-DIMER > 35.20 mg/L(FEU (0.17-0.50)
[2024-01-29 05:53] LABS: ANISOCYTOSIS 1+; LYMPHOCYTES % (MANUAL) 5 % (16-48); MONOCYTES % (MANUAL) 3 % (0-11.0); NEUTROPHILS % (MANUAL) 92 (42-76); OVALOCYTES 1+; PLATELET ESTIMATE DECREASED; TARGET CELLS 1+
[2024-01-29] MEDS: POTASSIUM PHOSPHATE MM 7.5 MMOL in IV NS 0.9% 100 ML IV SCH (08:31)
[2024-01-29] MEDS: diphenhydrAMINE HCL 50 MG/ML VIAL IV ONE (11:00)
[2024-01-29] MEDS: ACETAMINOPHEN 325 MG TABLET PO ONE (11:00)
[2024-01-29] MEDS ORDERED: POTASSIUM CL. PREMIX PERIPHER. 50 ML IV SCH (12:30)
[2024-01-29] MEDS: diphenhydrAMINE HCL 50 MG/ML VIAL IV PRN (15:02)
[2024-01-29] MEDS: POTASSIUM CL. PREMIX PERIPHER. 50 ML IV SCH (15:17)
[2024-01-29] MEDS ORDERED: Sodium Phosphate 15 MMOL in IV NS 0.9% 245 ML IV ONE (17:00)
[2024-01-30] VITALS (24 sets, daily range): BP systolic 103–130; BP diastolic 70–91; TEMP 97.7–98.4; O2SAT 93–100
[2024-01-30 05:03] LABS: BASOPHILS % (AUTO) 0.1 % (0.0-2.0); EOSINOPHILS # (AUTO) 0.1 K/uL (0.0-0.7); EOSINOPHILS % (AUTO) 1.7 % (0.0-6.0); HEMATOCRIT 25 % (33-45); HEMOGLOBIN 8.3 g/dL (11.5-14.8); LYMPHOCYTES # (AUTO) 0.2 K/uL (0.8-4.8); LYMPHOCYTES % (AUTO) 4.1 % (20.0-44.0); MEAN CORPUSCULAR HEMOGLOBIN 31 PG (26.0-33.0); MEAN CORPUSCULAR HGB CONC 34 g/dl (31.0-36.0); MEAN CORPUSCULAR VOLUME 92 fL (82-100); MONOCYTES # (AUTO) 0.3 K/uL (0.1-1.30); MONOCYTES % (AUTO) 5.5 % (2.0-12.0); NEUTROPHILS % (AUTO) 88.6 % (43.0-81.0); RED BLOOD CELL COUNT(AUTO) 2.68 MIL/uL (4.0-5.2); RED CELL DISTRIBUTION WIDTH 17.7 % (11.5-15.0); WHITE BLOOD COUNT (AUTO) 5.6 K/uL (4.3-11.0)
[2024-01-30 05:06] LABS: PLATELET COUNT (AUTO) 27 K/uL (150-450)
[2024-01-30 05:07] LABS: CALCIUM, SERUM 7.4 mg/dL (8.5-10.1); CREATININE 2.4 mg/dL (0.6-1.3); MAGNESIUM 1.2 mg/dL (1.8-2.4); PHOSPHORUS 2.3 mg/dL (2.5-4.9); POTASSIUM 3.7 mmol/L (3.5-5.1)
[2024-01-30 05:09] LABS: INR 1.54 (0.91-1.10); PARTIAL THROMBOPLASTIN TIME 38.1 SEC (24.3-34.3); PROTHROMBIN TIME 15.9 SECS (9.2-11.1)
[2024-01-30 05:15] LABS: D-DIMER 29.04 mg/L(FEU (0.17-0.50)
[2024-01-30 05:59] LABS: ANISOCYTOSIS 1+; EOSINOPHILS % (MANUAL) 2 % (0-4); HYPOCHROMASIA 1+; LYMPHOCYTES % (MANUAL) 6 % (16-48); MONOCYTES % (MANUAL) 7 % (0-11.0); MYELOCYTES % 1 % (0-0); NEUTROPHILS % (MANUAL) 84 (42-76); PLATELET ESTIMATE DECREASED
[2024-01-30 06:00] LABS: OVALOCYTES 1+; TARGET CELLS 1+
[2024-01-30 07:09] LABS: *SPE A/G RATIO 0.8 (0.7-1.7); *SPE ALBUMIN 3.4 g/dL (2.9-4.4); *SPE ALPHA-1-GLOBULIN 0.3 g/dL (0.0-0.4); *SPE ALPHA-2-GLOBULIN 0.7 g/dL (0.4-1.0); *SPE BETA GLOBULIN 0.9 g/dL (0.7-1.3); *SPE GLOBULIN, TOTAL 4.2 g/dL (2.2-3.9); *SPE M-SPIKE Not Observed g/dL (Not Observed); *SPE PROTEIN TOTAL 7.6 g/dL (6.0-8.5); *SPEGAMMA GLOBULIN 2.2 g/dL (0.4-1.8)
[2024-01-30 08:06] LABS: FOLIC ACID 10.6 ng/mL (>3.0)
[2024-01-30] MEDS: Magnesium 1GM/D5W 100ML PREMIX 100 ML IV SCH ×2 (13:25→21:09)
[2024-01-30] MEDS: PPN BAG #2 IV SCH (13:56)
[2024-01-30] MEDS: POTASSIUM PHOSPHATE MM 7.5 MMOL in IV NS 0.9% 100 ML IV SCH (14:04)
[2024-01-30] MEDS: LEVETIRACETAM (500MG) 500 MG in IV NS 0.9% 100 ML IV SCH (14:04)
[2024-01-30] MEDS: IV LR 1000 ML 1,000 ML IV PRN (18:20)
[2024-01-31] VITALS (15 sets, daily range): BP systolic 104–129; BP diastolic 67–97; TEMP 97.6–98; O2SAT 94–100
[2024-01-31 00:06] LABS: HEPATITIS B CORE AB, IgM Negative (Negative); HEPATITIS B CORE AB, TOTAL Positive (Negative); HEPATITIS B SURFACE AB Non Reactive (.)
[2024-01-31 05:15] LABS: CALCIUM, SERUM 7.9 mg/dL (8.5-10.1); CREATININE 2.2 mg/dL (0.6-1.3); MAGNESIUM 1.7 mg/dL (1.8-2.4); PHOSPHORUS 2.5 mg/dL (2.5-4.9); POTASSIUM 3.7 mmol/L (3.5-5.1)
[2024-01-31 05:31] LABS: FIBRINOGEN ACTIVITY 234 Mg/dL (213-485); INR 1.42 (0.91-1.10); PROTHROMBIN TIME 14.7 SECS (9.2-11.1)
[2024-01-31 05:51] LABS: D-DIMER > 35.20 mg/L(FEU (0.17-0.50)
[2024-01-31 05:59] LABS: BASOPHILS % (AUTO) 0.3 % (0.0-2.0); EOSINOPHILS # (AUTO) 0.1 K/uL (0.0-0.7); EOSINOPHILS % (AUTO) 1.7 % (0.0-6.0); HEMATOCRIT 27 % (33-45); HEMOGLOBIN 8.9 g/dL (11.5-14.8); LYMPHOCYTES # (AUTO) 0.3 K/uL (0.8-4.8); LYMPHOCYTES % (AUTO) 6.2 % (20.0-44.0); MEAN CORPUSCULAR HEMOGLOBIN 31 PG (26.0-33.0); MEAN CORPUSCULAR HGB CONC 33 g/dl (31.0-36.0); MEAN CORPUSCULAR VOLUME 94 fL (82-100); MONOCYTES # (AUTO) 0.4 K/uL (0.1-1.30); MONOCYTES % (AUTO) 9.3 % (2.0-12.0); NEUTROPHILS # (AUTO) 3.4 K/uL (1.8-8.9); NEUTROPHILS % (AUTO) 82.5 % (43.0-81.0); RED BLOOD CELL COUNT(AUTO) 2.86 MIL/uL (4.0-5.2); RED CELL DISTRIBUTION WIDTH 17.5 % (11.5-15.0); WHITE BLOOD COUNT (AUTO) 4.2 K/uL (4.3-11.0)
[2024-01-31 06:01] LABS: PLATELET COUNT (AUTO) 32 K/uL (150-450)
[2024-01-31] MEDS: BLOOD SUGAR DIAGNOSTIC 1 EACH STRIP IN SCH (07:09)
[2024-01-31] MEDS: INSULIN REGULAR, HUMAN 100 UNIT/ML 3 ML VIAL SQ PRN (07:10)
[2024-01-31 07:20] LABS: ANISOCYTOSIS 1+; BASOPHILS % (MANUAL) 0 % (0.0-2.0); EOSINOPHILS % (MANUAL) 2 % (0-4); LYMPHOCYTES % (MANUAL) 7 % (16-48); MONOCYTES % (MANUAL) 8 % (0-11.0); NEUTROPHILS % (MANUAL) 83 (42-76); PLATELET ESTIMATE DECREASED
[2024-01-31] MEDS ORDERED: Magnesium 1GM/D5W 100ML PREMIX 100 ML IV SCH (10:30)
[2024-01-31] MEDS: Magnesium 1GM/D5W 100ML PREMIX 100 ML IV SCH (10:30)
[2024-02-01] VITALS (7 sets, daily range): BP systolic 87–110; BP diastolic 60–78; TEMP 97.5–98.1; O2SAT 96–100
[2024-02-01 12:12] LABS: INR 1.38 (0.91-1.10); PARTIAL THROMBOPLASTIN TIME 32.1 SEC (24.3-34.3); PROTHROMBIN TIME 14.3 SECS (9.2-11.1)
[2024-02-01 12:13] LABS: D-DIMER 34.06 mg/L(FEU (0.17-0.50)
[2024-02-01 12:19] LABS: MAGNESIUM 1.9 mg/dL (1.8-2.4); PHOSPHORUS 2.7 mg/dL (2.5-4.9); POTASSIUM 3.7 mmol/L (3.5-5.1)
[2024-02-01 15:11] LABS: EOSINOPHILS # (AUTO) 0.1 K/uL (0.0-0.7); LYMPHOCYTES # (AUTO) 0.3 K/uL (0.8-4.8); MONOCYTES # (AUTO) 0.5 K/uL (0.1-1.30); NEUTROPHILS # (AUTO) 3.2 K/uL (1.8-8.9); WHITE BLOOD COUNT (AUTO) 4.1 K/uL (4.3-11.0)
[2024-02-01 15:24] LABS: BASOPHILS % (AUTO) 0.1 % (0.0-2.0); EOSINOPHILS % (AUTO) 1.7 % (0.0-6.0); HEMATOCRIT 30 % (33-45); HEMOGLOBIN 10.4 g/dL (11.5-14.8); MEAN CORPUSCULAR HEMOGLOBIN 32 PG (26.0-33.0); MEAN CORPUSCULAR HGB CONC 35 g/dl (31.0-36.0); MEAN CORPUSCULAR VOLUME 93 fL (82-100); NEUTROPHILS % (AUTO) 77.2 % (43.0-81.0); RED BLOOD CELL COUNT(AUTO) 3.25 MIL/uL (4.0-5.2); RED CELL DISTRIBUTION WIDTH 18.4 % (11.5-15.0)
[2024-02-01 15:28] LABS: PLATELET COUNT (AUTO) 30 K/uL (150-450)
[2024-02-01 15:38] LABS: MAGNESIUM 1.8 mg/dL (1.8-2.4); PHOSPHORUS 2.7 mg/dL (2.5-4.9)
[2024-02-01] MEDS: PPN BAG #3 IV SCH (18:52)
[2024-02-01 19:02] LABS: EOSINOPHILS % (MANUAL) 3 % (0-4); LYMPHOCYTES % (MANUAL) 11 % (16-48); MONOCYTES % (MANUAL) 6 % (0-11.0); NEUTROPHILS % (MANUAL) 80 (42-76); PLATELET ESTIMATE DECREASED
[2024-02-01 19:06] LABS: ANISOCYTOSIS 1+; OVALOCYTES 1+; TARGET CELLS 1+
[2024-02-02] VITALS: BP 99/65; TEMP 97.2; O2SAT 97
[2024-02-02] MEDS: oxyCODONE/APAP (5/325 MG) 1 UDTAB TABLET PO PRN (03:22)
[2024-02-02 04:00] VITALS: BP 120/64; TEMP 97.9; O2SAT 99
[2024-02-02 08:00] VITALS: BP 91/66; TEMP 98.1; O2SAT 98
[2024-02-02 10:21] LABS: BASOPHILS % (AUTO) 0.2 % (0.0-2.0); EOSINOPHILS # (AUTO) 0.1 K/uL (0.0-0.7); EOSINOPHILS % (AUTO) 2.4 % (0.0-6.0); HEMATOCRIT 34 % (33-45); HEMOGLOBIN 11.4 g/dL (11.5-14.8); LYMPHOCYTES # (AUTO) 0.4 K/uL (0.8-4.8); LYMPHOCYTES % (AUTO) 7.6 % (20.0-44.0); MEAN CORPUSCULAR HEMOGLOBIN 31 PG (26.0-33.0); MEAN CORPUSCULAR HGB CONC 33 g/dl (31.0-36.0); MEAN CORPUSCULAR VOLUME 94 fL (82-100); MONOCYTES # (AUTO) 0.7 K/uL (0.1-1.30); MONOCYTES % (AUTO) 12.5 % (2.0-12.0); NEUTROPHILS # (AUTO) 4.4 K/uL (1.8-8.9); NEUTROPHILS % (AUTO) 77.3 % (43.0-81.0); RED BLOOD CELL COUNT(AUTO) 3.68 MIL/uL (4.0-5.2); RED CELL DISTRIBUTION WIDTH 18.1 % (11.5-15.0); WHITE BLOOD COUNT (AUTO) 5.7 K/uL (4.3-11.0)
[2024-02-02 10:49] LABS: CREATININE 2.2 mg/dL (0.6-1.3); MAGNESIUM 1.3 mg/dL (1.8-2.4); PHOSPHORUS 2.6 mg/dL (2.5-4.9)
[2024-02-02 11:01] LABS: INR 1.45 (0.91-1.10); PARTIAL THROMBOPLASTIN TIME 33.9 SEC (24.3-34.3)
[2024-02-02 11:03] LABS: D-DIMER 24.09 mg/L(FEU (0.17-0.50)
[2024-02-02 11:18] LABS: PLATELET COUNT (AUTO) 45 K/uL (150-450)
[2024-02-02 12:00] VITALS: BP 102/70; TEMP 98.2; O2SAT 95
[2024-02-02 12:06] LABS: BASOPHILS % (MANUAL) 0 % (0.0-2.0); EOSINOPHILS % (MANUAL) 1 % (0-4); LYMPHOCYTES % (MANUAL) 7 % (16-48); MONOCYTES % (MANUAL) 12 % (0-11.0); NEUTROPHILS % (MANUAL) 87 (42-76); PLATELET ESTIMATE DECREASED
[2024-02-02 12:07] LABS: ANISOCYTOSIS 1+
[2024-02-02] MEDS: POTASSIUM CL. PREMIX PERIPHER. 50 ML IV SCH (14:53)
[2024-02-02 16:00] VITALS: BP 98/67; TEMP 97.2; O2SAT 98
[2024-02-02] MEDS: Magnesium 1GM/D5W 100ML PREMIX 100 ML IV SCH (16:57)
[2024-02-02] MEDS: ACETAMINOPHEN 325 MG TABLET PO PRN (17:55)
[2024-02-02 20:00] VITALS: BP 75/60; TEMP 97.9; O2SAT 97
[2024-02-02] MEDS: PPN #4 IV SCH (20:50)
[2024-02-02] MEDS: MIDODRINE HCL (5MG) 5 MG TABLET PO SCH (21:06)
[2024-02-03 04:00] VITALS: BP 93/60; TEMP 98.1; O2SAT 97
[2024-02-03 11:37] LABS: BASOPHILS # (AUTO) 0.1 K/uL (0.0-0.2); BASOPHILS % (AUTO) 0.5 % (0.0-2.0); EOSINOPHILS # (AUTO) 0.1 K/uL (0.0-0.7); EOSINOPHILS % (AUTO) 0.9 % (0.0-6.0); HEMATOCRIT 35 % (33-45); HEMOGLOBIN 11.9 g/dL (11.5-14.8); LYMPHOCYTES # (AUTO) 0.6 K/uL (0.8-4.8); LYMPHOCYTES % (AUTO) 5.4 % (20.0-44.0); MEAN CORPUSCULAR HEMOGLOBIN 32 PG (26.0-33.0); MEAN CORPUSCULAR HGB CONC 34 g/dl (31.0-36.0); MEAN CORPUSCULAR VOLUME 93 fL (82-100); MONOCYTES # (AUTO) 0.8 K/uL (0.1-1.30); MONOCYTES % (AUTO) 6.8 % (2.0-12.0); NEUTROPHILS # (AUTO) 9.9 K/uL (1.8-8.9); NEUTROPHILS % (AUTO) 86.4 % (43.0-81.0); PLATELET COUNT (AUTO) 110 K/uL (150-450); RED BLOOD CELL COUNT(AUTO) 3.76 MIL/uL (4.0-5.2); RED CELL DISTRIBUTION WIDTH 19.3 % (11.5-15.0); WHITE BLOOD COUNT (AUTO) 11.5 K/uL (4.3-11.0)
[2024-02-03 12:00] VITALS: BP 99/60; TEMP 97.1; O2SAT 100
[2024-02-03] MEDS: MORPHINE SULFATE INJ 2 MG/ML DISP.SYRIN IV PRN (13:25)
[2024-02-03 14:55] LABS: BASOPHILS % (AUTO) 0.1 % (0.0-2.0); EOSINOPHILS # (AUTO) 0.1 K/uL (0.0-0.7); EOSINOPHILS % (AUTO) 0.6 % (0.0-6.0); HEMATOCRIT 35 % (33-45); LYMPHOCYTES # (AUTO) 0.5 K/uL (0.8-4.8); LYMPHOCYTES % (AUTO) 4.2 % (20.0-44.0); MEAN CORPUSCULAR HEMOGLOBIN 31 PG (26.0-33.0); MEAN CORPUSCULAR HGB CONC 34 g/dl (31.0-36.0); MEAN CORPUSCULAR VOLUME 93 fL (82-100); MONOCYTES # (AUTO) 0.9 K/uL (0.1-1.30); MONOCYTES % (AUTO) 7.5 % (2.0-12.0); NEUTROPHILS # (AUTO) 10.7 K/uL (1.8-8.9); NEUTROPHILS % (AUTO) 87.6 % (43.0-81.0); PLATELET COUNT (AUTO) 141 K/uL (150-450); RED BLOOD CELL COUNT(AUTO) 3.83 MIL/uL (4.0-5.2); RED CELL DISTRIBUTION WIDTH 18.6 % (11.5-15.0); WHITE BLOOD COUNT (AUTO) 12.3 K/uL (4.3-11.0)
[2024-02-03] MEDS ORDERED: PPN #5 IV SCH (15:00)
[2024-02-03 16:39] LABS: INR 1.58 (0.91-1.10); PARTIAL THROMBOPLASTIN TIME 33.9 SEC (24.3-34.3)
[2024-02-03 16:40] LABS: D-DIMER 34.25 mg/L(FEU (0.17-0.50); PROTHROMBIN TIME 16.3 SECS (9.2-11.1)
[2024-02-03] MEDS: POTASSIUM CL. PREMIX PERIPHER. 50 ML IV SCH (18:02)
[2024-02-03 19:06] LABS: CALCIUM, SERUM 8.1 mg/dL (8.5-10.1); CREATININE 2.5 mg/dL (0.6-1.3); PHOSPHORUS 3.1 mg/dL (2.5-4.9)
[2024-02-03 20:00] VITALS: BP 90/75; TEMP 96.2; O2SAT 96
[2024-02-03] MEDS: PPN #5 IV SCH (21:22)
[2024-02-04 04:00] VITALS: BP 105/63; TEMP 96.2; O2SAT 96
[2024-02-04 07:12] LABS: HEMOGLOBIN 11.8 g/dL (11.5-14.8); MEAN CORPUSCULAR HEMOGLOBIN 31 PG (26.0-33.0)
[2024-02-04 07:14] LABS: LYMPHOCYTES % (AUTO) 4.1 % (20.0-44.0); MONOCYTES % (AUTO) 4.4 % (2.0-12.0); NEUTROPHILS % (AUTO) 91.1 % (43.0-81.0)
[2024-02-04 07:15] LABS: EOSINOPHILS # (AUTO) 0.1 K/uL (0.0-0.7); EOSINOPHILS % (AUTO) 0.5 % (0.0-6.0); HEMATOCRIT 36 % (33-45); LYMPHOCYTES # (AUTO) 0.7 K/uL (0.8-4.8); MEAN CORPUSCULAR VOLUME 94 fL (82-100); MONOCYTES # (AUTO) 0.8 K/uL (0.1-1.30); NEUTROPHILS # (AUTO) 15.6 K/uL (1.8-8.9); PLATELET COUNT (AUTO) 113 K/uL (150-450); WHITE BLOOD COUNT (AUTO) 17.2 K/uL (4.3-11.0)
[2024-02-04 07:16] LABS: MEAN CORPUSCULAR HGB CONC 33 g/dl (31.0-36.0)
[2024-02-04 07:28] LABS: CALCIUM, SERUM 8.4 mg/dL (8.5-10.1); CREATININE 2.9 mg/dL (0.6-1.3); MAGNESIUM 1.9 mg/dL (1.8-2.4); PHOSPHORUS 3.2 mg/dL (2.5-4.9); POTASSIUM 4.6 mmol/L (3.5-5.1)
[2024-02-04 07:31] LABS: D-DIMER 29.25 mg/L(FEU (0.17-0.50); INR 1.53 (0.91-1.10); PARTIAL THROMBOPLASTIN TIME 37.8 SEC (24.3-34.3); PROTHROMBIN TIME 15.8 SECS (9.2-11.1)
[2024-02-04] MEDS: LEVETIRACETAM SOL (5 ML) 100 MG/ML UDC PO SCH (14:33)
[2024-02-04 16:00] VITALS: BP 93/52; TEMP 97.2; O2SAT 99
[2024-02-04 20:00] VITALS: BP 106/68; TEMP 98.2; O2SAT 99
[2024-02-04] MEDS: IV NS 0.9% 1,000 ML IV PRN (21:56)
[2024-02-04] MEDS: PPN #6 IV SCH (22:31)
[2024-02-05 04:00] VITALS: BP 158/79; TEMP 98; O2SAT 99
[2024-02-05 05:36] VITALS: O2SAT 99
[2024-02-05 07:55] LABS: BASOPHILS % (AUTO) 0.1 % (0.0-2.0); EOSINOPHILS # (AUTO) 0.1 K/uL (0.0-0.7); EOSINOPHILS % (AUTO) 0.6 % (0.0-6.0); HEMATOCRIT 35 % (33-45); HEMOGLOBIN 11.3 g/dL (11.5-14.8); LYMPHOCYTES # (AUTO) 0.6 K/uL (0.8-4.8); MEAN CORPUSCULAR HEMOGLOBIN 31 PG (26.0-33.0); MEAN CORPUSCULAR HGB CONC 33 g/dl (31.0-36.0); MEAN CORPUSCULAR VOLUME 96 fL (82-100); MONOCYTES # (AUTO) 0.6 K/uL (0.1-1.30); MONOCYTES % (AUTO) 3.2 % (2.0-12.0); NEUTROPHILS # (AUTO) 18.6 K/uL (1.8-8.9); NEUTROPHILS % (AUTO) 93.1 % (43.0-81.0); PLATELET COUNT (AUTO) 131 K/uL (150-450); RED BLOOD CELL COUNT(AUTO) 3.63 MIL/uL (4.0-5.2); RED CELL DISTRIBUTION WIDTH 20.7 % (11.5-15.0)
[2024-02-05 08:00] VITALS: BP 110/58; TEMP 98; O2SAT 95
[2024-02-05 08:11] LABS: BILIRUBIN,TOTAL 4.5 mg/dL (0.2-1.0); CALCIUM, SERUM 8.2 mg/dL (8.5-10.1); CREATININE 3.2 mg/dL (0.6-1.3); MAGNESIUM 1.9 mg/dL (1.8-2.4); PHOSPHORUS 3.3 mg/dL (2.5-4.9); POTASSIUM 4.5 mmol/L (3.5-5.1)
[2024-02-05 08:13] LABS: INR 1.5 (0.91-1.10); PARTIAL THROMBOPLASTIN TIME 42.3 SEC (24.3-34.3); PROTHROMBIN TIME 15.5 SECS (9.2-11.1)
[2024-02-05 08:15] LABS: D-DIMER 12.9 mg/L(FEU (0.17-0.50)
[2024-02-05 09:14] LABS: ALBUMIN 1.3 g/dL (3.4-5.0)
[2024-02-05] MEDS: ALBUMIN 25% 25 GM in PREMIX 1 EA IV SCH (10:12)
[2024-02-05] MEDS: LEVETIRACETAM (250 MG) 250 MG TABLET PO SCH (10:14)
[2024-02-05] MEDS: FAT EMULSION 20% 500 ML in PREMIX 1 EA IV SCH (12:06)
[2024-02-05 16:00] VITALS: BP 128/101; TEMP 98; O2SAT 96
[2024-02-05] MEDS: DULOXETINE HCL 30 MG CAPSULE.DR PO SCH (16:46)
[2024-02-05 20:00] VITALS: BP 117/74; TEMP 97.6; O2SAT 93
[2024-02-05] MEDS: busPIRone 5 MG TABLET PO SCH (20:14)
[2024-02-05] MEDS: PPN #7 IV SCH (23:22)
[2024-02-06 04:00] VITALS: BP 93/65; TEMP 97.9; O2SAT 95
[2024-02-06 05:44] VITALS: O2SAT 96
[2024-02-06 07:18] LABS: BASOPHILS % (AUTO) 0.1 % (0.0-2.0); EOSINOPHILS % (AUTO) 0.2 % (0.0-6.0); HEMATOCRIT 31 % (33-45); LYMPHOCYTES # (AUTO) 0.3 K/uL (0.8-4.8); LYMPHOCYTES % (AUTO) 1.9 % (20.0-44.0); MEAN CORPUSCULAR HEMOGLOBIN 32 PG (26.0-33.0); MEAN CORPUSCULAR HGB CONC 33 g/dl (31.0-36.0); MEAN CORPUSCULAR VOLUME 97 fL (82-100); MONOCYTES # (AUTO) 0.4 K/uL (0.1-1.30); MONOCYTES % (AUTO) 2.2 % (2.0-12.0); NEUTROPHILS # (AUTO) 16.4 K/uL (1.8-8.9); NEUTROPHILS % (AUTO) 95.6 % (43.0-81.0); PLATELET COUNT (AUTO) 93 K/uL (150-450); RED BLOOD CELL COUNT(AUTO) 3.15 MIL/uL (4.0-5.2); RED CELL DISTRIBUTION WIDTH 21.2 % (11.5-15.0); WHITE BLOOD COUNT (AUTO) 17.2 K/uL (4.3-11.0)
[2024-02-06 08:00] LABS: CALCIUM, SERUM 8.2 mg/dL (8.5-10.1); MAGNESIUM 1.8 mg/dL (1.8-2.4); POTASSIUM 3.8 mmol/L (3.5-5.1)
[2024-02-06 08:04] LABS: CREATININE 3.4 mg/dL (0.6-1.3)
[2024-02-06 11:15] LABS: BAND % (MANUAL) 2 % (0.0-5.0); EOSINOPHILS % (MANUAL) 1 % (0-4); LYMPHOCYTES % (MANUAL) 4 % (16-48); MONOCYTES % (MANUAL) 1 % (0-11.0); NEUTROPHILS % (MANUAL) 92 (42-76)
[2024-02-06 11:16] LABS: PLATELET ESTIMATE DECREASED
[2024-02-06 11:17] LABS: ANISOCYTOSIS 1+
[2024-02-06] MEDS ORDERED: IOHEXOL-350 100 ML VIAL IV ONE (11:20)
[2024-02-06] MEDS ORDERED: CT SWABBABLE VALVE TRANS SET 1 EA INFUS.SET MC ONE (11:20)
[2024-02-06] MEDS ORDERED: IV NS 0.9% 250 ML IV ONE (11:22)
[2024-02-06 12:02] VITALS: BP 100/62; TEMP 97.9; O2SAT 96
[2024-02-06] MEDS: HEPARIN SODIUM, PORCINE 5000 UNITS/1 ML VIAL SQ SCH (12:39)
[2024-02-06] MEDS ORDERED: HEPARIN SODIUM, PORCINE 5000 UNITS/1 ML VIAL SQ SCH ×2 (17:00→20:30)
[2024-02-06 19:16] LABS: INR 1.62 (0.91-1.10); PROTHROMBIN TIME 16.6 SECS (9.2-11.1)
[2024-02-06 20:00] VITALS: BP 107/57; TEMP 97.9; O2SAT 96
[2024-02-06 20:09] VITALS: O2SAT 95
[2024-02-06] MEDS: HEPARIN SODIUM, PORCINE 5000 UNITS/1 ML VIAL IV ONE (20:42)
[2024-02-06] MEDS: HEPARIN INFUSION/D5W 500 ML IV PRN (21:26)
[2024-02-06] MEDS: PPN BAG #8 IV SCH (21:32)
[2024-02-07 04:00] VITALS: BP 111/50; TEMP 97.9; O2SAT 95
[2024-02-07 04:08] LABS: BASOPHILS % (AUTO) 0.1 % (0.0-2.0); EOSINOPHILS # (AUTO) 0.1 K/uL (0.0-0.7); EOSINOPHILS % (AUTO) 0.4 % (0.0-6.0); HEMATOCRIT 28 % (33-45); HEMOGLOBIN 9.1 g/dL (11.5-14.8); LYMPHOCYTES # (AUTO) 0.3 K/uL (0.8-4.8); LYMPHOCYTES % (AUTO) 1.9 % (20.0-44.0); MEAN CORPUSCULAR HEMOGLOBIN 31 PG (26.0-33.0); MEAN CORPUSCULAR HGB CONC 33 g/dl (31.0-36.0); MEAN CORPUSCULAR VOLUME 96 fL (82-100); MONOCYTES # (AUTO) 0.5 K/uL (0.1-1.30); MONOCYTES % (AUTO) 3.3 % (2.0-12.0); NEUTROPHILS # (AUTO) 14.4 K/uL (1.8-8.9); NEUTROPHILS % (AUTO) 94.3 % (43.0-81.0); RED CELL DISTRIBUTION WIDTH 21.6 % (11.5-15.0); WHITE BLOOD COUNT (AUTO) 15.3 K/uL (4.3-11.0)
[2024-02-07 04:18] LABS: PLATELET COUNT (AUTO) 80 K/uL (150-450)
[2024-02-07 04:31] LABS: CALCIUM, SERUM 8.3 mg/dL (8.5-10.1); CREATININE 3.5 mg/dL (0.6-1.3); POTASSIUM 3.4 mmol/L (3.5-5.1)
[2024-02-07 04:53] LABS: MAGNESIUM 1.4 mg/dL (1.8-2.4); PHOSPHORUS 3.2 mg/dL (2.5-4.9)
[2024-02-07 04:57] LABS: EOSINOPHILS % (MANUAL) 1 % (0-4); LYMPHOCYTES % (MANUAL) 3 % (16-48); MONOCYTES % (MANUAL) 1 % (0-11.0); NEUTROPHILS % (MANUAL) 95 (42-76)
[2024-02-07 04:58] LABS: ANISOCYTOSIS 1+; PLATELET ESTIMATE DECREASED
[2024-02-07 06:47] LABS: INR 1.72 (0.91-1.10); PROTHROMBIN TIME 17.6 SECS (9.2-11.1)
[2024-02-07 06:50] LABS: PARTIAL THROMBOPLASTIN TIME > 170.0 SEC (24.3-34.3)
[2024-02-07 08:00] VITALS: BP 120/64; TEMP 97.8; O2SAT 92
[2024-02-07] MEDS: ALBUMIN 25% 25 GM in PREMIX 1 EA IV PRN (15:30)
[2024-02-07 16:00] VITALS: BP 107/75; TEMP 97.8; O2SAT 93
[2024-02-07 16:23] LABS: HEMOGLOBIN 8.2 g/dL (11.5-14.8)
[2024-02-07 20:00] VITALS: BP 96/59; TEMP 97.5; O2SAT 93
[2024-02-07 20:20] VITALS: O2SAT 96
[2024-02-08] MEDS ORDERED: LEVETIRACETAM (500MG) 500 MG/5 ML VIAL IV ONE (00:27)
[2024-02-08] MEDS: LEVETIRACETAM (500MG) 250 MG in IV NS 0.9% 100 ML IV SCH (00:32)
[2024-02-08 04:00] VITALS: BP 126/63; TEMP 97.6; O2SAT 93
[2024-02-08 07:53] LABS: BASOPHILS % (AUTO) 0.1 % (0.0-2.0); EOSINOPHILS # (AUTO) 0.1 K/uL (0.0-0.7); EOSINOPHILS % (AUTO) 0.5 % (0.0-6.0); HEMATOCRIT 25 % (33-45); HEMOGLOBIN 8.7 g/dL (11.5-14.8); LYMPHOCYTES # (AUTO) 0.2 K/uL (0.8-4.8); LYMPHOCYTES % (AUTO) 2.3 % (20.0-44.0); MEAN CORPUSCULAR HEMOGLOBIN 33 PG (26.0-33.0); MEAN CORPUSCULAR HGB CONC 34 g/dl (31.0-36.0); MEAN CORPUSCULAR VOLUME 95 fL (82-100); MONOCYTES # (AUTO) 0.5 K/uL (0.1-1.30); MONOCYTES % (AUTO) 4.5 % (2.0-12.0); NEUTROPHILS # (AUTO) 9.6 K/uL (1.8-8.9); NEUTROPHILS % (AUTO) 92.6 % (43.0-81.0); PLATELET COUNT (AUTO) 68 K/uL (150-450); RED BLOOD CELL COUNT(AUTO) 2.68 MIL/uL (4.0-5.2); RED CELL DISTRIBUTION WIDTH 22.4 % (11.5-15.0); WHITE BLOOD COUNT (AUTO) 10.4 K/uL (4.3-11.0)
[2024-02-08 08:00] VITALS: BP 126/74; TEMP 97.3; O2SAT 100
[2024-02-08 08:59] LABS: POTASSIUM 2.6 mmol/L (3.5-5.1)
[2024-02-08] MEDS: POTASSIUM CHLORIDE 10 MEQ/50 ML PREMIXED IVPB FOR PERIPHERAL LINE IV ONE (09:36)
[2024-02-08] MEDS: POTASSIUM CL. PREMIX PERIPHER. 50 ML IV SCH ×2 (09:45→15:55)
[2024-02-08] MEDS ORDERED: IOHEXOL 0 ML IV ONE (10:19)
[2024-02-08] MEDS ORDERED: LIDOCAINE HCL/MPF 1% 30 ML VIAL IJ ONE (10:20)
[2024-02-08] MEDS ORDERED: HEPARIN SODIUM, PORCINE 1,000 UNIT/ML VIAL ONE (10:20)
[2024-02-08] MEDS ORDERED: ANESTHESIA TRAY IN PYXIS 1 EA TRAY MC ONE (10:20)
[2024-02-08 10:39] LABS: LYMPHOCYTES % (MANUAL) 5 % (16-48); MONOCYTES % (MANUAL) 2 % (0-11.0); NEUTROPHILS % (MANUAL) 93 (42-76)
[2024-02-08 10:40] LABS: PLATELET ESTIMATE DECREASED; TARGET CELLS 1+
[2024-02-08 12:00] VITALS: BP 122/55; TEMP 97.3; O2SAT 96
[2024-02-08] MEDS ORDERED: MIDAZOLAM HCL 2 MG/2ML VIAL ONE (13:56)
[2024-02-08 14:14] LABS: MAGNESIUM 1.4 mg/dL (1.8-2.4)
[2024-02-08 16:00] VITALS: BP 127/51; TEMP 96; O2SAT 98
[2024-02-08 17:24] LABS: HEMOGLOBIN 8.3 g/dL (11.5-14.8)
[2024-02-08 20:00] VITALS: BP 122/80; TEMP 96.8; O2SAT 100
[2024-02-08] MEDS: PPN BAG #9 IV SCH (21:49)
[2024-02-09] VITALS: BP 112/73; TEMP 96.8; O2SAT 95
[2024-02-09 04:00] VITALS: BP 117/76; TEMP 96.8; O2SAT 96
[2024-02-09 08:00] VITALS: BP 126/76; TEMP 98.2; O2SAT 96
[2024-02-09 12:00] VITALS: BP 110/61; TEMP 97.9; O2SAT 96
[2024-02-09] MEDS ORDERED: HEPARIN INFUSION/D5W 500 ML IV SCH (14:00)
[2024-02-09 15:05] LABS: BASOPHILS % (AUTO) 0.1 % (0.0-2.0); EOSINOPHILS # (AUTO) 0.1 K/uL (0.0-0.7); EOSINOPHILS % (AUTO) 0.9 % (0.0-6.0); HEMATOCRIT 23 % (33-45); HEMOGLOBIN 7.9 g/dL (11.5-14.8); LYMPHOCYTES # (AUTO) 0.2 K/uL (0.8-4.8); LYMPHOCYTES % (AUTO) 2.1 % (20.0-44.0); MEAN CORPUSCULAR HEMOGLOBIN 33 PG (26.0-33.0); MEAN CORPUSCULAR HGB CONC 34 g/dl (31.0-36.0); MEAN CORPUSCULAR VOLUME 95 fL (82-100); MONOCYTES # (AUTO) 0.6 K/uL (0.1-1.30); MONOCYTES % (AUTO) 5.8 % (2.0-12.0); NEUTROPHILS # (AUTO) 9.9 K/uL (1.8-8.9); NEUTROPHILS % (AUTO) 91.1 % (43.0-81.0); RED BLOOD CELL COUNT(AUTO) 2.41 MIL/uL (4.0-5.2); RED CELL DISTRIBUTION WIDTH 23.4 % (11.5-15.0); WHITE BLOOD COUNT (AUTO) 10.9 K/uL (4.3-11.0)
[2024-02-09 15:20] LABS: CREATININE 1.3 mg/dL (0.6-1.3); MAGNESIUM 1.4 mg/dL (1.8-2.4); PHOSPHORUS 1.3 mg/dL (2.5-4.9); POTASSIUM 3.2 mmol/L (3.5-5.1)
[2024-02-09 15:21] LABS: INR 1.65 (0.91-1.10); PARTIAL THROMBOPLASTIN TIME 46.4 SEC (24.3-34.3); PROTHROMBIN TIME 16.9 SECS (9.2-11.1)
[2024-02-09 15:28] LABS: LACTIC ACID 2.4 mmol/L (0.4-2.0)
[2024-02-09 15:36] LABS: PLATELET COUNT (AUTO) 45 K/uL (150-450)
[2024-02-09 16:00] VITALS: BP 128/75; TEMP 97.3; O2SAT 97
[2024-02-09] MEDS: Magnesium 1GM/D5W 100ML PREMIX 100 ML IV SCH (17:49)
[2024-02-09] MEDS: POTASSIUM PHOSPHATE MM 15 MMOL in IV NS 0.9% 250 ML IV SCH (17:49)
[2024-02-09 18:00] LABS: BILIRUBIN,TOTAL 6.1 mg/dL (0.2-1.0)
[2024-02-09 18:05] LABS: ANISOCYTOSIS 1+; BAND % (MANUAL) 6 % (0.0-5.0); LYMPHOCYTES % (MANUAL) 4 % (16-48); MONOCYTES % (MANUAL) 2 % (0-11.0); NEUTROPHILS % (MANUAL) 88 (42-76); PLATELET ESTIMATE DECREASED; TARGET CELLS 1+
[2024-02-09 18:06] LABS: OVALOCYTES 1+; TEAR DROP CELLS RARE
[2024-02-09 18:07] LABS: LACTIC ACID REFLEX 2.1 mmol/L (0.4-1.9)
[2024-02-09] MEDS: POTASSIUM CL. PREMIX PERIPHER. 50 ML IV SCH (20:41)
[2024-02-09 22:02] VITALS: BP 128/75; TEMP 97.3; O2SAT 97
[2024-02-10] VITALS: BP 119/63; TEMP 98.5; O2SAT 97
[2024-02-10 04:00] VITALS: BP 103/75; TEMP 98.1; O2SAT 97
[2024-02-10 08:00] VITALS: BP 112/73; TEMP 97.2; O2SAT 100
[2024-02-10 08:35] LABS: BASOPHILS % (AUTO) 0.1 % (0.0-2.0); EOSINOPHILS # (AUTO) 0.1 K/uL (0.0-0.7); EOSINOPHILS % (AUTO) 0.7 % (0.0-6.0); HEMATOCRIT 23 % (33-45); HEMOGLOBIN 7.6 g/dL (11.5-14.8); LYMPHOCYTES # (AUTO) 0.3 K/uL (0.8-4.8); LYMPHOCYTES % (AUTO) 2.5 % (20.0-44.0); MEAN CORPUSCULAR HEMOGLOBIN 32 PG (26.0-33.0); MEAN CORPUSCULAR HGB CONC 34 g/dl (31.0-36.0); MEAN CORPUSCULAR VOLUME 95 fL (82-100); MONOCYTES # (AUTO) 0.7 K/uL (0.1-1.30); MONOCYTES % (AUTO) 5.7 % (2.0-12.0); NEUTROPHILS # (AUTO) 11.2 K/uL (1.8-8.9); RED BLOOD CELL COUNT(AUTO) 2.39 MIL/uL (4.0-5.2); RED CELL DISTRIBUTION WIDTH 22.7 % (11.5-15.0); WHITE BLOOD COUNT (AUTO) 12.3 K/uL (4.3-11.0)
[2024-02-10 08:48] LABS: PLATELET COUNT (AUTO) 44 K/uL (150-450)
[2024-02-10 09:09] LABS: CALCIUM, SERUM 8.1 mg/dL (8.5-10.1); CREATININE 1.8 mg/dL (0.6-1.3); MAGNESIUM 2.2 mg/dL (1.8-2.4); PHOSPHORUS 2.4 mg/dL (2.5-4.9); POTASSIUM 3.3 mmol/L (3.5-5.1)
[2024-02-10 09:46] LABS: BASOPHILS % (MANUAL) 0 % (0.0-2.0); EOSINOPHILS % (MANUAL) 1 % (0-4); LYMPHOCYTES % (MANUAL) 2 % (16-48); MONOCYTES % (MANUAL) 4 % (0-11.0); NEUTROPHILS % (MANUAL) 93 (42-76); PLATELET ESTIMATE DECREASED
[2024-02-10 09:47] LABS: ANISOCYTOSIS 1+; OVALOCYTES 1+
[2024-02-10 12:00] VITALS: BP 118/59; TEMP 96.8; O2SAT 100
[2024-02-10 15:05] LABS: D-DIMER 11.35 mg/L(FEU (0.17-0.50); INR 1.62 (0.91-1.10); PARTIAL THROMBOPLASTIN TIME 47.3 SEC (24.3-34.3); PROTHROMBIN TIME 16.6 SECS (9.2-11.1)
[2024-02-10] MEDS: POTASSIUM PHOSPHATE MM 7.5 MMOL in IV NS 0.9% 100 ML IV SCH (15:19)
[2024-02-10 16:00] VITALS: BP 125/74; TEMP 96.4; O2SAT 100
[2024-02-10 20:00] VITALS: BP 109/68; TEMP 94.4; O2SAT 100
[2024-02-11] VITALS: BP 109/88; TEMP 98.3; O2SAT 98
[2024-02-11] MEDS: PPN BAG #10 IV SCH (06:53)
[2024-02-11 07:07] LABS: CALCIUM, SERUM 8.1 mg/dL (8.5-10.1); CREATININE 2.1 mg/dL (0.6-1.3); INR 1.73 (0.91-1.10); MAGNESIUM 1.8 mg/dL (1.8-2.4); PARTIAL THROMBOPLASTIN TIME 47.4 SEC (24.3-34.3); PHOSPHORUS 4.3 mg/dL (2.5-4.9); POTASSIUM 3.5 mmol/L (3.5-5.1); PROTHROMBIN TIME 17.7 SECS (9.2-11.1)
[2024-02-11 07:08] LABS: D-DIMER 11.23 mg/L(FEU (0.17-0.50)
[2024-02-11 07:09] LABS: BASOPHILS % (AUTO) 0.1 % (0.0-2.0); EOSINOPHILS # (AUTO) 0.1 K/uL (0.0-0.7); EOSINOPHILS % (AUTO) 0.6 % (0.0-6.0); HEMATOCRIT 28 % (33-45); HEMOGLOBIN 9.5 g/dL (11.5-14.8); LYMPHOCYTES # (AUTO) 0.3 K/uL (0.8-4.8); LYMPHOCYTES % (AUTO) 2.5 % (20.0-44.0); MEAN CORPUSCULAR HEMOGLOBIN 32 PG (26.0-33.0); MEAN CORPUSCULAR HGB CONC 34 g/dl (31.0-36.0); MEAN CORPUSCULAR VOLUME 95 fL (82-100); MONOCYTES # (AUTO) 0.5 K/uL (0.1-1.30); MONOCYTES % (AUTO) 3.4 % (2.0-12.0); NEUTROPHILS # (AUTO) 12.8 K/uL (1.8-8.9); NEUTROPHILS % (AUTO) 93.4 % (43.0-81.0); RED BLOOD CELL COUNT(AUTO) 2.98 MIL/uL (4.0-5.2); RED CELL DISTRIBUTION WIDTH 23.5 % (11.5-15.0); WHITE BLOOD COUNT (AUTO) 13.7 K/uL (4.3-11.0)
[2024-02-11 07:35] LABS: PLATELET COUNT (AUTO) 43 K/uL (150-450)
[2024-02-11 07:52] LABS: ANISOCYTOSIS 1+; BAND % (MANUAL) 2 % (0.0-5.0); BASOPHILS % (MANUAL) 0 % (0.0-2.0); EOSINOPHILS % (MANUAL) 0 % (0-4); LYMPHOCYTES % (MANUAL) 2 % (16-48); MONOCYTES % (MANUAL) 5 % (0-11.0); NEUTROPHILS % (MANUAL) 91 (42-76); OVALOCYTES 1+; PLATELET ESTIMATE DECREASED
[2024-02-11 08:00] VITALS: BP 107/68; TEMP 98.1; O2SAT 96
[2024-02-11 12:00] VITALS: BP 136/75; TEMP 98; O2SAT 99
[2024-02-11 14:00] VITALS: BP 136/75; TEMP 98; O2SAT 99
[2024-02-11 16:00] VITALS: BP 100/52; TEMP 98; O2SAT 99
[2024-02-11] MEDS: MORPHINE SULFATE INJ 2 MG/ML DISP.SYRIN IV PRN (19:47)
[2024-02-11 20:00] VITALS: BP 102/63; TEMP 97.1; O2SAT 99
[2024-02-12] VITALS: BP 110/78; TEMP 97.3; O2SAT 99
[2024-02-12 04:00] VITALS: BP 104/68; TEMP 98.1; O2SAT 100
[2024-02-12 08:00] VITALS: BP 93/63; TEMP 98.1; O2SAT 100
[2024-02-12 08:11] LABS: EOSINOPHILS # (AUTO) 0.1 K/uL (0.0-0.7); EOSINOPHILS % (AUTO) 0.4 % (0.0-6.0); HEMATOCRIT 28 % (33-45); HEMOGLOBIN 9.2 g/dL (11.5-14.8); LYMPHOCYTES # (AUTO) 0.3 K/uL (0.8-4.8); LYMPHOCYTES % (AUTO) 1.6 % (20.0-44.0); MEAN CORPUSCULAR HEMOGLOBIN 32 PG (26.0-33.0); MEAN CORPUSCULAR HGB CONC 33 g/dl (31.0-36.0); MEAN CORPUSCULAR VOLUME 96 fL (82-100); MONOCYTES # (AUTO) 0.4 K/uL (0.1-1.30); NEUTROPHILS # (AUTO) 18.6 K/uL (1.8-8.9); RED BLOOD CELL COUNT(AUTO) 2.88 MIL/uL (4.0-5.2); RED CELL DISTRIBUTION WIDTH 24.1 % (11.5-15.0); WHITE BLOOD COUNT (AUTO) 19.4 K/uL (4.3-11.0)
[2024-02-12 08:26] LABS: CALCIUM, SERUM 8.1 mg/dL (8.5-10.1); CREATININE 2.4 mg/dL (0.6-1.3); MAGNESIUM 1.6 mg/dL (1.8-2.4); PHOSPHORUS 4.4 mg/dL (2.5-4.9); POTASSIUM 3.5 mmol/L (3.5-5.1)
[2024-02-12 08:37] LABS: PLATELET COUNT (AUTO) 36 K/uL (150-450)
[2024-02-12 09:58] LABS: BAND % (MANUAL) 1 % (0.0-5.0); BASOPHILS % (MANUAL) 0 % (0.0-2.0); EOSINOPHILS % (MANUAL) 0 % (0-4); LYMPHOCYTES % (MANUAL) 5 % (16-48); MONOCYTES % (MANUAL) 3 % (0-11.0); NEUTROPHILS % (MANUAL) 91 (42-76); PLATELET ESTIMATE DECREASED
[2024-02-12 09:59] LABS: ANISOCYTOSIS 1+
[2024-02-12] MEDS: Magnesium 1GM/D5W 100ML PREMIX 100 ML IV SCH (11:05)
[2024-02-12 12:00] VITALS: BP 84/52; TEMP 98.3; O2SAT 100
[2024-02-12] MEDS ORDERED: IOHEXOL-350 100 ML VIAL IV ONE (12:13)
[2024-02-12] MEDS ORDERED: IV NS 0.9% 250 ML IV ONE (12:13)
[2024-02-12] MEDS ORDERED: CT SWABBABLE VALVE TRANS SET 1 EA INFUS.SET MC ONE (12:13)
[2024-02-12] MEDS ORDERED: ALBUMIN 25% 12.5 GM/50 ML BOTTLE IV ONE (12:30)
[2024-02-12] MEDS: IV LR 1000 ML 500 ML IV ONE (14:00)
[2024-02-12] MEDS: ALBUMIN 25% 50 GM in PREMIX 1 EA IV ONE (14:51)
[2024-02-12 16:00] VITALS: BP 88/42; TEMP 98.3; O2SAT 100
[2024-02-12 20:00] VITALS: BP 102/71; TEMP 97.3; O2SAT 100
[2024-02-13] VITALS (23 sets, daily range): BP systolic 76–138; BP diastolic 37–117; TEMP 96.6–98.2; O2SAT 86–100
[2024-02-13] MEDS: DEXTROSE 50%-WATER 50 ML DISP.SYRIN IV PRN (00:02)
[2024-02-13] MEDS: TPN IV SCH (01:20)
[2024-02-13] MEDS: IV D5/ 0.9% NACL 1,000 ML IV PRN (06:26)
[2024-02-13] MEDS ORDERED: DOBUTamine 250 MG in IV D5W 230 ML IV SCH (09:00)
[2024-02-13] MEDS ORDERED: DOBUTamine 500 MG in IV D5W 210 ML IV SCH (09:00)
[2024-02-13] MEDS ORDERED: PPN BAG #11 IV SCH (09:18)
[2024-02-13] MEDS: DOBUTamine 500 MG in IV D5W 210 ML IV PRN (09:55)
[2024-02-13 10:55] LABS: ABG BASE EXCESS -6.1 mmol/L (-2.0-3.0); ABG PCO2 26.3 mmHg (32.0-45.0); ABG PH 7.437 (7.350-7.450); ABG PO2 63.1 mmHg (83.0-108.0); ABG TOTAL HEMOGLOBIN 7.4 G/dL (12.0-16.0); MetHb 0.2 % (0.0-1.5); O2Hb 89.9 % (94.0-97.0); SITE, ABG LEFT RADIAL
[2024-02-13 12:26] LABS: CALCIUM, SERUM 7.1 mg/dL (8.5-10.1); CREATININE 2.1 mg/dL (0.6-1.3); MAGNESIUM 1.4 mg/dL (1.8-2.4); PHOSPHORUS 1.7 mg/dL (2.5-4.9)
[2024-02-13 12:34] LABS: INR 2.18 (0.91-1.10); PARTIAL THROMBOPLASTIN TIME 65.3 SEC (24.3-34.3)
[2024-02-13 12:38] LABS: BASOPHILS # (AUTO) 0.1 K/uL (0.0-0.2); BASOPHILS % (AUTO) 0.2 % (0.0-2.0); EOSINOPHILS # (AUTO) 0.1 K/uL (0.0-0.7); EOSINOPHILS % (AUTO) 0.2 % (0.0-6.0); HEMATOCRIT 21 % (33-45); LYMPHOCYTES # (AUTO) 0.4 K/uL (0.8-4.8); LYMPHOCYTES % (AUTO) 1.4 % (20.0-44.0); MEAN CORPUSCULAR HEMOGLOBIN 32 PG (26.0-33.0); MEAN CORPUSCULAR HGB CONC 33 g/dl (31.0-36.0); MEAN CORPUSCULAR VOLUME 98 fL (82-100); MONOCYTES # (AUTO) 0.3 K/uL (0.1-1.30); MONOCYTES % (AUTO) 1.1 % (2.0-12.0); NEUTROPHILS % (AUTO) 97.1 % (43.0-81.0); RED BLOOD CELL COUNT(AUTO) 2.12 MIL/uL (4.0-5.2); RED CELL DISTRIBUTION WIDTH 24.4 % (11.5-15.0); WHITE BLOOD COUNT (AUTO) 25.8 K/uL (4.3-11.0)
[2024-02-13 12:46] LABS: D-DIMER 10.66 mg/L(FEU (0.17-0.50)
[2024-02-13 12:58] LABS: HEMOGLOBIN 6.8 g/dL (11.5-14.8); PLATELET COUNT (AUTO) 24 K/uL (150-450)
[2024-02-13 16:19] LABS: BAND % (MANUAL) 9 % (0.0-5.0); BASOPHILS % (MANUAL) 0 % (0.0-2.0); EOSINOPHILS % (MANUAL) 0 % (0-4); LYMPHOCYTES % (MANUAL) 2 % (16-48); METAMYELOCYTES % 2 % (0-0); MONOCYTES % (MANUAL) 3 % (0-11.0); NEUTROPHILS % (MANUAL) 84 (42-76); PLATELET ESTIMATE DECREASED
[2024-02-13 16:20] LABS: ANISOCYTOSIS 2+
[2024-02-13] MEDS: PHENYLEPHRINE 50 MG in IV NS 0.9% 245 ML IV PRN (19:16)
[2024-02-13] MEDS: ACETAMINOPHEN 325 MG TABLET PO ONE ×2 (19:30)
[2024-02-13] MEDS ORDERED: diphenhydrAMINE HCL 50 MG/ML VIAL IV ONE (19:30)
[2024-02-13] MEDS ORDERED: ALBUMIN 25% 12.5 GM/50 ML BOTTLE IV STA (19:50)
[2024-02-13] MEDS ORDERED: POTASSIUM PHOSPHATE MM 7.5 MMOL in IV NS 0.9% 100 ML IV SCH (20:00)
[2024-02-13] MEDS: POTASSIUM PHOSPHATE MM 7.5 MMOL in IV NS 0.9% 100 ML IV SCH (20:10)
[2024-02-13] MEDS: ALBUMIN 25% 50 GM in PREMIX 1 EA IV ONE (20:34)
[2024-02-13] MEDS: Magnesium 1GM/D5W 100ML PREMIX 100 ML IV SCH (20:49)
[2024-02-13] MEDS ORDERED: LINEZOLID RTU BAG 600 MG in PREMIX 1 EA IV SCH (21:00)
[2024-02-13] MEDS: MEROPENEM 500 MG in IV NS 0.9% 50 ML IV SCH (21:12)
[2024-02-13] MEDS ORDERED: ACETAMINOPHEN 650 MG/SUPP.RECT RC PRN (21:30)
[2024-02-13] MEDS: IV LR 500 ML IV STA (21:34)
[2024-02-13] MEDS: VANCOMYCIN 1 GM in IV D5W 250 ML IV ONE (21:43)
[2024-02-13 21:47] LABS: ABG BASE EXCESS -7.5 mmol/L (-2.0-3.0); ABG OXYGEN SATURATION 96.9 % (94.0-98.0); ABG PCO2 24.4 mmHg (32.0-45.0); ABG PH 7.433 (7.350-7.450); ABG PO2 95.8 mmHg (83.0-108.0); ABG TOTAL HEMOGLOBIN 6.5 G/dL (12.0-16.0); COHb 1.1 % (0.5-1.5); MetHb 0.2 % (0.0-1.5); O2Hb 95.6 % (94.0-97.0); SITE, ABG LEFT RADIAL
[2024-02-13] MEDS: TPN BAG #2 IV SCH (22:05)
[2024-02-13] MEDS: POTASSIUM PHOSPHATE MM 15 MMOL in IV NS 0.9% 250 ML IV SCH (22:32)
[2024-02-13] MEDS: ACETAMINOPHEN 650 MG/SUPP.RECT RC PRN (23:33)
[2024-02-13] MEDS: diphenhydrAMINE HCL 50 MG/ML VIAL IV ONE (23:33)
[2024-02-14] VITALS (85 sets, daily range): BP systolic 65–142; BP diastolic 4–99; TEMP 96.5–97.5; O2SAT 95–100
[2024-02-14] MEDS: NOREPINEPHRINE 8MG/250ML RTU 250 ML IV ONE (03:01)
[2024-02-14] MEDS: NOREPINEPHRINE 8 MG in IV D5W 242 ML IV PRN (03:01)
[2024-02-14] MEDS: IV LR 1000 ML 1,000 ML IV PRN (03:07)
[2024-02-14 04:55] LABS: CALCIUM, SERUM 7.6 mg/dL (8.5-10.1); CREATININE 2.1 mg/dL (0.6-1.3); MAGNESIUM 1.6 mg/dL (1.8-2.4); PHOSPHORUS 3.1 mg/dL (2.5-4.9)
[2024-02-14 05:05] LABS: INR 2.09 (0.91-1.10); PARTIAL THROMBOPLASTIN TIME 65.1 SEC (24.3-34.3); PROTHROMBIN TIME 21.1 SECS (9.2-11.1)
[2024-02-14 05:16] LABS: POTASSIUM 2.8 mmol/L (3.5-5.1)
[2024-02-14 05:34] LABS: D-DIMER 11.9 mg/L(FEU (0.17-0.50)
[2024-02-14 08:38] LABS: EOSINOPHILS % (AUTO) 0.1 % (0.0-6.0); HEMATOCRIT 24 % (33-45); LYMPHOCYTES # (AUTO) 0.2 K/uL (0.8-4.8); LYMPHOCYTES % (AUTO) 1.1 % (20.0-44.0); MEAN CORPUSCULAR HEMOGLOBIN 32 PG (26.0-33.0); MEAN CORPUSCULAR HGB CONC 34 g/dl (31.0-36.0); MEAN CORPUSCULAR VOLUME 95 fL (82-100); MONOCYTES # (AUTO) 0.2 K/uL (0.1-1.30); NEUTROPHILS # (AUTO) 20.2 K/uL (1.8-8.9); NEUTROPHILS % (AUTO) 97.8 % (43.0-81.0); RED BLOOD CELL COUNT(AUTO) 2.49 MIL/uL (4.0-5.2); RED CELL DISTRIBUTION WIDTH 21.8 % (11.5-15.0); WHITE BLOOD COUNT (AUTO) 20.7 K/uL (4.3-11.0)
[2024-02-14 08:41] LABS: ABG BASE EXCESS -6.3 mmol/L (-2.0-3.0); ABG OXYGEN SATURATION 97.6 % (94.0-98.0); ABG PCO2 27.6 mmHg (32.0-45.0); ABG PH 7.416 (7.350-7.450); ABG PO2 106.2 mmHg (83.0-108.0); ABG TOTAL HEMOGLOBIN 8.8 G/dL (12.0-16.0); COHb 0.4 % (0.5-1.5); MetHb 0.4 % (0.0-1.5); O2Hb 96.8 % (94.0-97.0); SITE, ABG LEFT RADIAL
[2024-02-14] MEDS: HYDROCORTISONE SOD SUCCINATE 100 MG/2 ML VIAL IV SCH (09:30)
[2024-02-14 09:35] LABS: PLATELET COUNT (AUTO) 16 K/uL (150-450)
[2024-02-14] MEDS: NOREPINEPHRINE 32 MG in IV NS 0.9% 218 ML IV PRN (15:33)
[2024-02-14 15:34] LABS: BAND % (MANUAL) 7 % (0.0-5.0); NEUTROPHILS % (MANUAL) 85 (42-76)
[2024-02-14 15:35] LABS: ANISOCYTOSIS 2+; BASOPHILS % (MANUAL) 0 % (0.0-2.0); EOSINOPHILS % (MANUAL) 0 % (0-4); LYMPHOCYTES % (MANUAL) 2 % (16-48); METAMYELOCYTES % 2 % (0-0); MONOCYTES % (MANUAL) 4 % (0-11.0); PLATELET ESTIMATE DECREASED
[2024-02-14] MEDS: PHENYLEPHRINE 100 MG in IV NS 0.9% 240 ML IV PRN (16:00)
[2024-02-14] MEDS: Magnesium 1GM/D5W 100ML PREMIX 100 ML IV SCH (16:53)
[2024-02-14] MEDS: POTASSIUM CL. PREMIX PERIPHER. 50 ML IV SCH (16:54)
[2024-02-14] MEDS: VANCOMYCIN 500 MG in IV D5W 100 ML IV PRN (21:44)
[2024-02-15] VITALS (92 sets, daily range): BP systolic 63–155; BP diastolic 19–132; TEMP 97–97.5; O2SAT 97–100
[2024-02-15 05:36] LABS: CALCIUM, SERUM 7.9 mg/dL (8.5-10.1); CREATININE 2.2 mg/dL (0.6-1.3); POTASSIUM 3.8 mmol/L (3.5-5.1)
[2024-02-15 06:11] LABS: D-DIMER 13.65 mg/L(FEU (0.17-0.50); INR 1.92 (0.91-1.10); PARTIAL THROMBOPLASTIN TIME 58.9 SEC (24.3-34.3); PROTHROMBIN TIME 19.5 SECS (9.2-11.1)
[2024-02-15 07:32] LABS: BASOPHILS % (AUTO) 0.1 % (0.0-2.0); EOSINOPHILS % (AUTO) 0.1 % (0.0-6.0); HEMATOCRIT 24 % (33-45); LYMPHOCYTES # (AUTO) 0.2 K/uL (0.8-4.8); MEAN CORPUSCULAR HEMOGLOBIN 32 PG (26.0-33.0); MEAN CORPUSCULAR HGB CONC 34 g/dl (31.0-36.0); MEAN CORPUSCULAR VOLUME 94 fL (82-100); MONOCYTES # (AUTO) 0.2 K/uL (0.1-1.30); MONOCYTES % (AUTO) 1.2 % (2.0-12.0); NEUTROPHILS # (AUTO) 20.3 K/uL (1.8-8.9); NEUTROPHILS % (AUTO) 97.6 % (43.0-81.0); RED BLOOD CELL COUNT(AUTO) 2.51 MIL/uL (4.0-5.2); RED CELL DISTRIBUTION WIDTH 22.1 % (11.5-15.0); WHITE BLOOD COUNT (AUTO) 20.8 K/uL (4.3-11.0)
[2024-02-15 08:26] LABS: PLATELET COUNT (AUTO) 22 K/uL (150-450)
[2024-02-15 08:29] LABS: MAGNESIUM 1.9 mg/dL (1.8-2.4); PHOSPHORUS 4.3 mg/dL (2.5-4.9)
[2024-02-15 11:36] LABS: BAND % (MANUAL) 3 % (0.0-5.0); LYMPHOCYTES % (MANUAL) 1 % (16-48); MONOCYTES % (MANUAL) 1 % (0-11.0); NEUTROPHILS % (MANUAL) 95 (42-76)
[2024-02-15 11:37] LABS: ANISOCYTOSIS 1+; PLATELET ESTIMATE DECREASED
[2024-02-15 11:38] LABS: TARGET CELLS 1+
[2024-02-15] MEDS: MORPHINE SULFATE INJ 2 MG/ML DISP.SYRIN IV PRN (13:31)
[2024-02-15] MEDS: VANCOMYCIN 500 MG in IV D5W 100 ML IV ONE (15:43)
[2024-02-15] MEDS: TPN BAG #3 IV SCH (22:00)
[2024-02-16] VITALS (69 sets, daily range): BP systolic 32–147; BP diastolic 20–123; TEMP 97–97.5; O2SAT 96–100
[2024-02-16 04:40] LABS: CALCIUM, SERUM 7.9 mg/dL (8.5-10.1); CREATININE 2.4 mg/dL (0.6-1.3); MAGNESIUM 1.5 mg/dL (1.8-2.4); PHOSPHORUS 4.9 mg/dL (2.5-4.9); POTASSIUM 4.1 mmol/L (3.5-5.1)
[2024-02-16 05:32] LABS: INR 1.77 (0.91-1.10); PARTIAL THROMBOPLASTIN TIME 51.5 SEC (24.3-34.3); PROTHROMBIN TIME 18.1 SECS (9.2-11.1)
[2024-02-16 05:35] LABS: D-DIMER 10.97 mg/L(FEU (0.17-0.50)
[2024-02-16] MEDS ORDERED: VANCOMYCIN 500 MG in IV D5W 100 ML IV PRN (06:00)
[2024-02-16 09:02] LABS: BASOPHILS % (AUTO) 0.2 % (0.0-2.0); HEMATOCRIT 22 % (33-45); HEMOGLOBIN 7.5 g/dL (11.5-14.8); LYMPHOCYTES # (AUTO) 0.2 K/uL (0.8-4.8); LYMPHOCYTES % (AUTO) 1.4 % (20.0-44.0); MEAN CORPUSCULAR HEMOGLOBIN 32 PG (26.0-33.0); MEAN CORPUSCULAR HGB CONC 34 g/dl (31.0-36.0); MEAN CORPUSCULAR VOLUME 95 fL (82-100); MONOCYTES # (AUTO) 0.3 K/uL (0.1-1.30); MONOCYTES % (AUTO) 1.8 % (2.0-12.0); NEUTROPHILS # (AUTO) 13.9 K/uL (1.8-8.9); NEUTROPHILS % (AUTO) 96.6 % (43.0-81.0); RED BLOOD CELL COUNT(AUTO) 2.33 MIL/uL (4.0-5.2); RED CELL DISTRIBUTION WIDTH 22.5 % (11.5-15.0); WHITE BLOOD COUNT (AUTO) 14.4 K/uL (4.3-11.0)
[2024-02-16 09:25] LABS: PLATELET COUNT (AUTO) 13 K/uL (150-450)
[2024-02-16] MEDS ORDERED: MORPHINE SULFATE/PF 30 MG in IV NS 0.9% 27 ML, PCA TOTAL VOLUME 1 BAG IV PRN (10:00)
[2024-02-16] MEDS: MORPHINE SULFATE PF DRIP 100 MG in IV D5W 96 ML IV PRN ×2 (10:43→16:57)
[2024-02-16] MEDS ORDERED: MORPHINE SULFATE PF DRIP 100 MG in IV D5W 96 ML IV PRN (12:00)
[2024-02-16] MEDS: LORAZEPAM INJ 2 MG/ML VIAL IV PRN (12:40)
[2024-02-16 13:58] LABS: ANISOCYTOSIS 2+; LYMPHOCYTES % (MANUAL) 1 % (16-48); MONOCYTES % (MANUAL) 3 % (0-11.0); NEUTROPHILS % (MANUAL) 96 (42-76); PLATELET ESTIMATE DECREASED
[2024-02-16 14:00] LABS: TARGET CELLS 1+
== END 2024-02-16 17:47 | DRG 230 ==
LOC: ER 20:51 → MED 01-25 04:46 → ICU 01-26 16:05 → TELE1 01-31 11:40 → MEDSG1 02-02 12:01 → TELE1 02-07 11:45 → TELE-TD 02-13 10:07 → ICU 02-13 16:59
PROVIDERS: ADMIT Nurse Practitioner Family; ATTEND Internal Medicine
PROC: 0D1A0Z4 Bypass Jejunum to Cutaneous, Open Approach (ICD-10-PCS; principal; 2024-01-26)
PROC: 30233K1 Transfusion of Nonautologous Frozen Plasma into Peripheral Vein, Percutaneous Approach (ICD-10-PCS; 2024-01-26)
PROC: 0DBB0ZZ Excision of Ileum, Open Approach (ICD-10-PCS; 2024-01-26)
PROC: 0DBF0ZZ Excision of Right Large Intestine, Open Approach (ICD-10-PCS; 2024-01-26)
PROC: 0DBG0ZZ Excision of Left Large Intestine, Open Approach (ICD-10-PCS; 2024-01-26)
PROC: 0DBL0ZZ Excision of Transverse Colon, Open Approach (ICD-10-PCS; 2024-01-26)
PROC: 0DBP0ZZ Excision of Rectum, Open Approach (ICD-10-PCS; 2024-01-26)
PROC: 0DBU0ZZ Excision of Omentum, Open Approach (ICD-10-PCS; 2024-01-26)
PROC: 4A1BXSH Monitoring of Gastrointestinal Vascular Perfusion using Indocyanine Green Dye, External Approach (ICD-10-PCS; 2024-01-26)
PROC: 0DNU0ZZ Release Omentum, Open Approach (ICD-10-PCS; 2024-01-26)
PROC: 30233M1 Transfusion of Nonautologous Plasma Cryoprecipitate into Peripheral Vein, Percutaneous Approach (ICD-10-PCS; 2024-01-26)
PROC: 06HY33Z Insertion of Infusion Device into Lower Vein, Percutaneous Approach (ICD-10-PCS; 2024-01-26)
PROC: 05HY33Z Insertion of Infusion Device into Upper Vein, Percutaneous Approach (ICD-10-PCS; 2024-01-26)
PROC: 0DJD4ZZ Inspection of Lower Intestinal Tract, Percutaneous Endoscopic Approach (ICD-10-PCS; 2024-01-26)
PROC: 5A1D70Z Performance of Urinary Filtration, Intermittent, Less than 6 Hours Per Day (ICD-10-PCS; 2024-01-26)
PROC: 30233N1 Transfusion of Nonautologous Red Blood Cells into Peripheral Vein, Percutaneous Approach (ICD-10-PCS; 2024-01-27)
PROC: 30233R1 Transfusion of Nonautologous Platelets into Peripheral Vein, Percutaneous Approach (ICD-10-PCS; 2024-01-29)
PROC: 02HV33Z Insertion of Infusion Device into Superior Vena Cava, Percutaneous Approach (ICD-10-PCS; 2024-02-04)
PROC: B548ZZA Ultrasonography of Superior Vena Cava, Guidance (ICD-10-PCS; 2024-02-04)
PROC: 0JH63XZ Insertion of Tunneled Vascular Access Device into Chest Subcutaneous Tissue and Fascia, Percutaneous Approach (ICD-10-PCS; 2024-02-08)
PROC: 02HV33Z Insertion of Infusion Device into Superior Vena Cava, Percutaneous Approach (ICD-10-PCS; 2024-02-08)
PROC: B518YZA Fluoroscopy of Superior Vena Cava using Other Contrast, Guidance (ICD-10-PCS; 2024-02-08)
DX: A04.9 Bacterial intestinal infection, unspecified (principal); D65 Disseminated intravascular coagulation [defibrination syndrome]; J96.00 Acute respiratory failure, unspecified whether with hypoxia or hypercapnia; K72.00 Acute and subacute hepatic failure without coma; N17.0 Acute kidney failure with tubular necrosis; K55.011 Focal (segmental) acute (reversible) ischemia of small intestine; A41.9 Sepsis, unspecified organism; D61.818 Other pancytopenia; N18.4 Chronic kidney disease, stage 4 (severe); R65.21 Severe sepsis with septic shock; Z51.5 Encounter for palliative care; K55.8 Other vascular disorders of intestine; K76.7 Hepatorenal syndrome; K55.031 Focal (segmental) acute (reversible) ischemia of large intestine; I50.23 Acute on chronic systolic (congestive) heart failure; E44.0 Moderate protein-calorie malnutrition; N39.0 Urinary tract infection, site not specified; I13.0 Hypertensive heart and chronic kidney disease with heart failure and stage 1 through stage 4 chronic kidney disease, or unspecified chronic kidney disease; D50.0 Iron deficiency anemia secondary to blood loss (chronic); D69.59 Other secondary thrombocytopenia; E11.649 Type 2 diabetes mellitus with hypoglycemia without coma; E87.1 Hypo-osmolality and hyponatremia; E87.20 Acidosis, unspecified; E87.6 Hypokalemia; E88.09 Other disorders of plasma-protein metabolism, not elsewhere classified; G40.909 Epilepsy, unspecified, not intractable, without status epilepticus; I25.2 Old myocardial infarction; I42.9 Cardiomyopathy, unspecified; Z79.82 Long term (current) use of aspirin; Z87.891 Personal history of nicotine dependence; I25.10 Atherosclerotic heart disease of native coronary artery without angina pectoris; E83.42 Hypomagnesemia; J44.9 Chronic obstructive pulmonary disease, unspecified; H54.62 Unqualified visual loss, left eye, normal vision right eye; Z68.27 Body mass index [BMI] 27.0-27.9, adult; K70.31 Alcoholic cirrhosis of liver with ascites; F10.21 Alcohol dependence, in remission; Z53.31 Laparoscopic surgical procedure converted to open procedure; D69.6 Thrombocytopenia, unspecified; D68.8 Other specified coagulation defects; R74.01 Elevation of levels of liver transaminase levels; E80.6 Other disorders of bilirubin metabolism; E11.22 Type 2 diabetes mellitus with diabetic chronic kidney disease; M89.8X9 Other specified disorders of bone, unspecified site; Z85.42 Personal history of malignant neoplasm of other parts of uterus; Z97.0 Presence of artificial eye; J98.11 Atelectasis; K57.30 Diverticulosis of large intestine without perforation or abscess without bleeding; J90 Pleural effusion, not elsewhere classified; B19.20 Unspecified viral hepatitis C without hepatic coma; K56.7 Ileus, unspecified; K63.89 Other specified diseases of intestine; F32.9 Major depressive disorder, single episode, unspecified; F41.9 Anxiety disorder, unspecified; F19.10 Other psychoactive substance abuse, uncomplicated; Z53.9 Procedure and treatment not carried out, unspecified reason; Z79.899 Other long term (current) drug therapy; I77.1 Stricture of artery; K56.600 Partial intestinal obstruction, unspecified as to cause; I48.0 Paroxysmal atrial fibrillation; K91.850 Pouchitis; Z59.00 Homelessness unspecified
CPT/HCPCS: 31720; 36410; 36415; 36569; 36600; 71045-TC; 76700-TC; 80048-TC; 80053-TC; 80061-TC; 80202-TC; 81001; 82040-TC; 82140-TC; 82247-TC; 82248-TC; 82533; 82550-TC; 82553; 82728-TC; 82803-TC; 82962-TC; 83540-TC; 83605-TC; 83690-TC; 83735-TC; 83880; 83970; 84100-TC; 84132-TC; 84155; 84165; 84478-TC; 84484-TC; 85025-TC; 85027-TC; 85385-TC; 85396; 85610-TC; 85730-TC; 86304; 86704; 86705; 86706; 86803; 86850-TC; 87040-TC; 87081-TC; 87340; 88307-TC; 90935-TC; 94002-TC; 94003-TC; 94761-TC; 94762-TC; 94799-TC; 97110-TC; 97530-TC; A4216; A4223; A6209; A6253; A6403; A9563; C1750; C1757; C1769; C1894; G0378; G0480; J0330; J0690; J0696; J1200; J1250; J1644; J1720; J1815; J1953; J2060; J2185; J2248; J2250; J2270; J2274; J2405; J2470; J2543; J3010; J3370; J3430; J3475; J3480; J3490; J7030; J7040; J7042; J7050; J7060; J7070; J7120; P9012; P9016; P9017; P9034; P9047; Q9967; Q9968